=== PATIENT | female | born 1985 | race Caucasian/White ===

== ENCOUNTER 2020-09-05 20:51 | Emergency (ER) | payer OTHER, SELFPAY ==
[2020-09-05 21:08] VITALS: BP 113/68; PULSE 96; RESP 20; TEMP 37; O2SAT 98; BMI 21.9
--- NOTE | 2020-09-05 21:46 | MHC.RECOVSUP ---
Recovery Support o Current location: [address] Identified substance use concern: OPIOID - Overdose <del>-</del> <del>Withdrawal</del> <del>-</del> <del>Seeking</del> <del>ATS</del> <del>(detox)</del> - Support ? Intervention: <del>o</del> <del>ATS</del> <del>bed</del> <del>search</del> <del>started/completed/in</del> <del>process</del> <del>o</del> <del>MAT</del> <del>started</del> <del>or</del> <del>to</del> <del>be</del> <del>started</del> <del>o</del> <del>Community</del> <del>resources</del> <del>provided</del> <del>o</del> <del>Harm</del> <del>reduction</del> <del>discussion</del> ? Plan: <del>o</del> <del>Referral</del> <del>to</del> <del>[facility]</del> <del>o</del> <del>Bed</del> <del>search</del> <del>in</del> <del>progress</del> <del>to</del> <del>o</del> <del>Follow</del> <del>up</del> <del>tomorrow</del> <del>o</del> <del>Patient</del> <del>awaiting</del> <del>crisis</del> <del>evaluation</del> <del>o</del> <del>Patient</del> <del>to</del> <del>follow</del> <del>up</del> <del>with</del> <del>[facility]</del> <del>after</del> <del>discharge</del> ? Additional information: I have not been able to engage with pt. The both times that I tried talking with pt, she was asleep. I was able to leave at her bedside some recovery support information as well as [facility] and [facility]
--- NOTE | 2020-09-05 22:33 | PC.NURSE ---
at bedside for primary eval.
--- NOTE | 2020-09-05 23:16 | ED.GENADULT ---
HPI - General Adult General Chief complaint: ETOH/Substance Use Stated complaint: od Time Seen by Provider: 09/05/20 23:01 Source: patient Mode of arrival: EMS History of Present Illness HPI narrative: This is a 35-year-old female who has 14 months of sobriety and is brought in by EMS stating that her kids when off to camping trip with her father and she became anxious and was scared that they were going to be coming back and was dealing with a recent diagnosis of borderline personality disorder by her therapist and states that she was having some difficulty coping with the diagnosis. Patient states that she sniffed 2 bags of heroin for the 1st time and immediately thereafter felt remorse for having done so and called her friend who called EMS. Patient was found to be unresponsive with agonal respirations and received 2 mg of nasal Narcan with good effect. Patient adamantly denies any suicidal ideation. Patient states that she has plans to call her sponsor as well as her therapist 1st thing in the morning. Related Data Allergies Allergy/AdvReac Type Severity Reaction Status Date / Time bupropion [From WELLBUTRIN] AdvReac Severe SI, Unverified 09/05/20 21:16 urinary incontinence, severe agitation Review of Systems Review of Systems: Pertinent positives and negatives as stated in HPI 10 point review of systems is otherwise negative. PMFSH Past Medical History Source: nursing notes reviewed Medical History Substance abuse Social History Social History Advance Directives: No Advance Directives Information Provided: No Patient : No Physical Exam Vital Signs: Vital Signs: Last Vital Signs Temp 98.6 F 09/05/20 21:08 Pulse 96 09/05/20 21:08 Resp 20 09/05/20 21:08 BP 113/68 09/05/20 21:08 Pulse Ox 98 09/05/20 21:08 Body Mass Index 21.9 VITAL SIGNS: Reviewed. GENERAL: Well developed, well nourished, in no acute distress. HEAD: Normocephalic/atraumatic EYES: PERRLA, EOMI intact without pain EARS: Ext canals without abnormality OROPHARYNX: no oral lesions noted, posterior pharynx clear LUNGS: Normal breath sounds. No adventitious sounds or accessory muscle use. SpO2<98> CARDIOVASCULAR: Regular rate and rhythm without noted murmurs ABDOMEN: Soft, non-tender, non-distended with bowel sounds. LEFT ANKLE: NO SWELLING OR ECCHYMOSIS NOTED AND FULL RANGE OF MOTION PRESENT. SKIN: Inspection of the skin reveals no rashes NEUROLOGIC: Alert and oriented x 4. Strength and sensation to light touch were grossly intact x 4. Course Course Course Narrative: This is a 35-year-old female with history and clinical presentation consistent with heroin overdose that required the use of Narcan. Patient is not suicidal and expresses a planned follow-up with her sponsor as well as her therapist and will be discharged with home Narcan. She was encouraged to return at any time should she require further assistance. Otherwise, patient was discharged home in stable condition. Discharge Plan Discharge Clinical Impression: Accidental overdose Patient Disposition: Home, Self-Care Instructions: Adult Overdose (ED), Naloxone (Into the nose) Additional Instructions: Return to the emergency room should you have any acute worsening of symptoms. Referrals: Chandler Viera DO, MD [Primary Care Provider] - 2 days
[2020-09-05] MEDS: Naloxone HCl Nasal TAKE HOME 4 MG SPRAY NOSTRILALT (23:25)
[2020-09-05 23:27] VITALS: BP 98/74; PULSE 67; RESP 16; O2SAT 95
== END 2020-09-05 23:29 | disposition home or self-care (01) ==
PROVIDERS: Emergency Provider Student in an Organized Health Care Education/Training Program; PCP Internal Medicine
DX: T40.1X1A Poisoning by heroin, accidental (unintentional), initial encounter (principal); R40.4 Transient alteration of awareness; F19.10 Other psychoactive substance abuse, uncomplicated; Y92.039 Unspecified place in apartment as the place of occurrence of the external cause; F41.9 Anxiety disorder, unspecified; F60.3 Borderline personality disorder; Z63.32 Other absence of family member
CPT/HCPCS: 99284

== ENCOUNTER 2020-12-12 08:56 | Emergency (ER) | payer OTHER, SELFPAY ==
--- NOTE | ~2020-12-12 | CT_ITS ---
EXAMINATION: CT ABDOMEN AND PELVIS WITH CONTRAST CLINICAL INFORMATION: Right upper quadrant pain. Pelvic pain. COMPARISON: None TECHNIQUE: Multidetector volumetric images were obtained from the superior aspect of the liver through the pubic symphysis following administration 85 mL of Omnipaque 350 intravenous contrast. Sagittal and coronal reformatted images were obtained on the technologist's workstation. Oral contrast: No This CT examination was performed using dose optimization techniques as appropriate, variously including the following: *Automated exposure control *Adjustment of mA and/or kV according to patient size (this includes techniques or standardized protocols for targeted exams where dose is matched to indication/reason for exam; i.e. extremities or head) *Use of iterative reconstruction technique DLP: 322 mGy-cm FINDINGS: LUNG BASES: The visualized lung bases are unremarkable. LIVER, GALLBLADDER, AND BILIARY TREE: The liver is normal in size, shape, and attenuation. No focal hepatic lesion or biliary ductal dilatation is present. The gallbladder is unremarkable with no evidence of radiopaque gallstones, gallbladder wall thickening, or obvious pericholecystic inflammatory changes. PANCREAS: Unremarkable. SPLEEN: Unremarkable. ADRENAL GLANDS: Unremarkable. KIDNEYS AND URETERS: The kidneys are normal in size, shape, and attenuation. No hydronephrosis, hydroureter, or calculi seen. No perinephric stranding. BLADDER: Unremarkable. GASTROINTESTINAL TRACT: The stomach is unremarkable. Normal caliber small bowel. There is no obstruction. No colonic wall thickening or inflammatory change. The appendix is not well seen. There is a linear area of adjacent calcifications near the cecum which could represent multiple appendicoliths in the appendix. ABDOMINAL WALL: No significant hernia is appreciated. LYMPH NODES: Normal. VASCULAR: Normal caliber aorta. Circumaortic left renal vein. PELVIC VISCERA: The uterus and adnexa are unremarkable. Contraceptive ring noted. OSSEOUS STRUCTURES: No acute or suspicious osseous abnormality. CT/CT abdomen pelvis w con IMPRESSION: No acute findings in the abdomen or pelvis. No inflammatory changes. Normal appearance of the gallbladder. No pelvic mass.
[2020-12-12 09:15] VITALS: BP 115/76; PULSE 77; RESP 18; TEMP 37.2; O2SAT 99; BMI 22.8
[2020-12-12 09:42] LABS: Appearance Urine HAZY; Color Urine YELLOW; Glucose Urine UA NEG (NEG); Leukocyte Esterase Urine TRACE (NEG); Nitrite Urine NEG (NEG); UACC Culture Trigger YES; Urine Blood NEG (NEG); Urine Ketones NEG (NEG); Urine Protein NEG (NEG-TRACE)
[2020-12-12 09:45] LABS: UPreg QC Valid YES; Urine Pregnancy NEGATIVE (NEGATIVE)
[2020-12-12 10:06] LABS: Bacteria Urine 1+ /LPF; RBC Urine 0 /HPF (0); Renal Epithelial Cells Urine 1+ /LPF; Squamous Epithelial Cell Urine 2+ /LPF
[2020-12-12 10:17] LABS: COVID-19 Test Negative (Negative); IDNOW Serial# 9DD0AD1C
--- NOTE | 2020-12-12 10:25 | ED_ITS ---
HPI - General Adult General Chief complaint: Weakness Stated complaint: body ache, weakness, sob, abd pain Time Seen by Provider: 12/12/20 10:10 Source: patient Mode of arrival: ambulatory Limitations: no limitations History of Present Illness HPI narrative: 35-year-old female who presents emergency department for e valuation of nausea, vomiting and abdominal pain. The patient states that she had a positive test on 11/21/2020. She then developed vaginal bleeding for 4 days. She states the bleeding was worse than her usual the menstrual flow. The bleeding then stopped and she had a repeat test which was negative , therefore she restarted her control pills. The patient states that she did follow-up with her PCP in was diagnosed with bacterial vaginosis. She was started on metronidazole 750 mg twice a day. She states since starting this medication she has had frequent nausea and vomiting. She has also had abdominal and pelvic pain. She points to her right upper quadrant and epigastric area and in her pelvic asked to localize the pain. She states the pain constant, cramping, sharp pain which is 10 out of its worst. She did take some open with no relief for pain. She states that she still has a significant vaginal discharge despite taking the metronidazole. She states that she had a low-grade fever at home. She denied chest pain, shortness of breath, dyspnea on exertion, change in bowel movements. She has noted dysuria with urinary frequency. Past surgical history: Appendectomy. Related Data Previous Rx's Medication Instructions Recorded clindamycin HCl 300 mg capsule 300 mg PO BID 7 Days #14 cap 12/12/20 doxycycline hyclate 100 mg tablet 100 mg PO Q12H 10 Days #20 tab 12/12/20 ondansetron 4 mg disintegrating 4 mg PO Q6-8H PRN #14 tab 12/12/20 tablet Allergies Allergy/AdvReac Type Severity Reaction Status Date / Time bupropion [From WELLBUTRIN] AdvReac Severe SI, Unverified 09/05/20 21:16 urinary incontinence, severe agitation Review of Systems Review of Systems: Yes all other systems are reviewed and are negative [facility] Past Medical History [facility] Narrative: Social history: Patient states she stop smoking cigarettes in April of 2020. She also states that she stopped vaping tobacco products 2 weeks prior. She has a history of alcohol abuse and states that her last drink was 09/06/2020. The patient has a history of opiate use disorder and states that she last used intranasal heroin 3 months prior. Medical History Anxiety Asthma Depression Kidney stone Substance abuse Social History Social History Advance Directives: No Physical Exam Vital Signs: Vital Signs: Last Vital Signs Temp 99 F 12/12/20 09:15 Pulse 77 12/12/20 09:15 Resp 18 12/12/20 09:15 BP 115/76 12/12/20 09:15 Pulse Ox 99 12/12/20 09:15 Body Mass Index 22.8 Const: Other: Pleasant and cooperative female patient, she is crying, she appears to be in distress secondary to her pain, she also appears to be anxious, she is able to answer all questions appropriately HENMT: Head: Yes normal to inspection, Yes normocephalic and Yes atraumatic Ears: external ears normal General nose exam: Normal external nose present Face and sinus: Yes normal facial exam Mouth: Normal oral and palatal mucosa present Throat: Yes posterior oropharynx normal Eyes: General: appearance normal, both eyes and all related structures Pupils: Equal, round and reactive pupils present Neck: Neck: Yes normal visual inspection, Yes no lymphadenopathy, Yes trachea midline and Yes supple Chest: Chest palpation & inspection: normal inspection of the chest and normal palpation of entire chest wall Resp: Effort & Inspection: normal respiratory effort and able to speak in complete sentences Auscultation: clear to auscultation bilaterally Cardio: Rate: regular rate Rhythm: regular rhythm Heart sounds: S1 normal heart sound present, S2 normal heart sound present and no murmurs GI: Inspection: Yes normal to inspection Palpation (GI): Soft to palpation, Tenderness to palpation present (GI) in the epigastrum (Moderate), in the RUQ (Moderate), periumbilically (Moderate) and suprapubicly ([id number]) and no guarding Auscultation: normal bowel sounds : General: Yes no CVA tenderness External Female Exam: normal external appearance Speculum Exam - Vagina: normal palpation, abnormal vaginal discharge (Thin, white) and foreign body (NuvaRing palpable) Speculum Exam - Cervix: Cervical os closed, Abnormal cervical discharge present (Thin white) and Cervical tenderness present (Moderate to severe) Bimanual exam- vagina & uterus: normal palpation, Cervical tenderness present (Moderate to severe), cervical motion tenderness (Moderate) and Uterine tenderness ([id number]) Bimanual Exam- Adnexa, other: tender ([id number]) OB/external & speculum: foreign body (NuvaRing palpable) Back/Spine/Pelvis: Back: no CVA tenderness Skin: General skin exam: no rashes or lesions noted Neuro: Cranial nerves: Yes CN's II-XII intact bilaterally and Yes Equal, round and reactive pupils present Cognition (Neuro): normal cognition Motor exam (neuro): 5/5 motor strength present throughout Extrem: General: Yes normal to inspection Psych: Appearance: grossly normal Speech and movement: Normal speech and movement present Affect: Anxious affect present Attitude: cooperative Thought process: Normal thought process present Thought content: Normal thought content present Course Course Course Narrative: 35-year-old female who presents emergency department for diane luation of nausea, vomiting and abdominal pain. The patient has been taking metronidazole twice a day for bacterial vaginosis. The patient's vital signs were normal. Patient's examination did reveal but the patient was anxious tearful and in distress secondary to her pain. She did have right upper quadrant and epigastric tenderness as well as umbilical and suprapubic tenderness. The differential includes was not limited to adverse reaction to metronidazole, biliary disease, pancreatitis, kidney stone, pelvic inflammatory disease. I ordered a CBC, CMP, lipase, lactate, urinalysis and urine test. Patient was ordered to get Toradol 30 mg IV for pain and Zofran 4 mg IV for her nausea and vomiting. She was also treated with normal saline x1 L. CT scan of the patient's abdomen pelvis with IV contrast will also be obtained. 1034: Patient's urinalysis revealed trace leukocyte esterase, microscopic revealed 1-4 white blood cells, 2+ squamous cells, 1+ bacteria. Her urine test were negative. 1240: The patient's pelvic exam did reveal significant cervical motion tenderness with only minimal tenderness palpation over her uterus and fallopian tubes she does have a NuvaRing in place. The patient did have both a vaginal and cervical discharge which was thin and white without significant odor. At this time I suspect that the patient's nausea and vomiting was probably related to the metronidazole however her abdominal pain is most likely caused by pelvic inflammatory disease versus cervicitis. The patient was treated with ceftriaxone 500 mg IM. She will be started on doxycycline 100 mg twice a day for 10 days and I will also treat her bacterial vaginosis with clindamycin cream. Patient only completed a 3 day course of metronidazole. The patient was tested for gonorrhea and chlamydia. Patient was given printed and verbal instructions and discharged home. Medical Decision Making Lab Data Result diagrams: 12/12/20 10:44 12/12/20 10:44 Labs: Lab Results 12/12/20 12/12/20 12/12/20 Range/Units 09:26 09:27 09:27 WBC (4.8-10.8) X10*3/uL RBC (4.20-5.50) X10*6/uL Hgb (12.0-16.0) g/dl Hct (37.0-47.0) % MCV (80.0-98.0) fL MCH (27.0-33.0) pg MCHC (31.0-35.0) g/dl RDW (11.0-16.0) % Plt Count (160-400) X10*3/uL MPV (9.4-12.3) fL Immature Gran % (Auto) (0.0-0.4) % Neut % (Auto) (45-73) % Lymph % (Auto) (20-40) % [place] % (Auto) (2-11) % Eos % (Auto) (0-4) % Baso % (Auto) (0-2) % Lymph # (Auto) (1.2-4.9) X10*3/uL [place] # (Auto) (0.1-1.2) X10*3/uL Eos # (Auto) (0.0-0.4) X10*3/uL Baso # (Auto) (0.0-0.2) X10*3/uL Abs Immat Gran (auto) (0.00-0.03) X10*3/uL Absolute Neuts (auto) (2.0-8.3) x10*3/uL Absolute Nucleated RBC (0.0-0.012) X10*3/uL Nucleated RBC % (auto) (0.0-0.2) /100WBC Sodium (135-145) mmol/L Potassium (3.3-5.1) mmol/L Chloride (96-108) mmol/L Carbon Dioxide (22-29) mmol/L Anion Gap (12-20) BUN (9-16) mg/dL Creatinine (0.5-1.4) mg/dL Estim Creat Clear Calc Estimated GFR Random Glucose (60-115) mg/dL Lactic Acid (0.5-2.0) mmol/L Calcium (8.4-10.2) mg/dL Total Bilirubin (0.0-1.0) mg/dL AST (5-31) U/L ALT (0-31) U/L Alkaline Phosphatase (39-117) U/L Total Protein (6.5-8.0) g/dL Albumin (3.5-5.0) g/dL Lipase (8-78) U/L Urine Color YELLOW Urine Appearance HAZY Urine pH 6.0 (5.0-8.0) Ur Specific [place] 1.020 (1.005-1.025) Urine Protein NEG (NEG-TRACE) MG/DL Urine Glucose (UA) NEG (NEG) MG/DL Urine Ketones NEG (NEG) MG/DL Urine Blood NEG (NEG) Urine Nitrite NEG (NEG) Ur Leukocyte Esterase TRACE H (NEG) Urine RBC 0 (0) /HPF Urine WBC 1-4 (0-4) /HPF Ur Squamous Epith Cells 2+ /LPF Ur Renal Epithelial Cell 1+ /LPF Urine Bacteria 1+ /LPF Urine Test NEGATIVE (NEGATIVE) COVID-19 ([facility]) Negative (Negative) COVID-19 Clin Com See Note 12/12/20 12/12/20 12/12/20 Range/Units 10:44 10:44 10:44 WBC 4.1 L (4.8-10.8) X10*3/uL RBC 3.90 L (4.20-5.50) X10*6/uL Hgb 12.5 (12.0-16.0) g/dl Hct 36.0 L (37.0-47.0) % MCV 92.3 (80.0-98.0) fL MCH 32.1 (27.0-33.0) pg MCHC 34.7 (31.0-35.0) g/dl RDW 11.8 (11.0-16.0) % Plt Count 257 (160-400) X10*3/uL MPV 8.5 L (9.4-12.3) fL Immature Gran % (Auto) 0.2 (0.0-0.4) % Neut % (Auto) 58.9 (45-73) % Lymph % (Auto) 32.3 (20-40) % [place] % (Auto) 6.4 (2-11) % Eos % (Auto) 1.0 (0-4) % Baso % (Auto) 1.2 (0-2) % Lymph # (Auto) 1.3 (1.2-4.9) X10*3/uL [place] # (Auto) 0.3 (0.1-1.2) X10*3/uL Eos # (Auto) 0.0 (0.0-0.4) X10*3/uL Baso # (Auto) 0.1 (0.0-0.2) X10*3/uL Abs Immat Gran (auto) 0.01 (0.00-0.03) X10*3/uL Absolute Neuts (auto) 2.38 (2.0-8.3) x10*3/uL Absolute Nucleated RBC 0.000 (0.0-0.012) X10*3/uL Nucleated RBC % (auto) 0.0 (0.0-0.2) /100WBC Sodium 140 (135-145) mmol/L Potassium 4.0 (3.3-5.1) mmol/L Chloride 108 (96-108) mmol/L Carbon Dioxide 24 (22-29) mmol/L Anion Gap 12 (12-20) BUN 9 (9-16) mg/dL Creatinine 0.80 (0.5-1.4) mg/dL Estim Creat Clear Calc 78.3 Estimated GFR > 60 Random Glucose 85 (60-115) mg/dL Lactic Acid 0.9 (0.5-2.0) mmol/L Calcium 9.1 (8.4-10.2) mg/dL Total Bilirubin 0.6 (0.0-1.0) mg/dL AST 27 (5-31) U/L ALT 38 H (0-31) U/L Alkaline Phosphatase 42 (39-117) U/L Total Protein 6.7 (6.5-8.0) g/dL Albumin 4.4 (3.5-5.0) g/dL Lipase 19 (8-78) U/L Urine Color Urine Appearance Urine pH (5.0-8.0) Ur Specific [place] (1.005-1.025) Urine Protein (NEG-TRACE) MG/DL Urine Glucose (UA) (NEG) MG/DL Urine Ketones (NEG) MG/DL Urine Blood (NEG) Urine Nitrite (NEG) Ur Leukocyte Esterase (NEG) Urine RBC (0) /HPF Urine WBC (0-4) /HPF Ur Squamous Epith Cells /LPF Ur Renal Epithelial Cell /LPF Urine Bacteria /LPF Urine Test (NEGATIVE) COVID-19 ([facility]) (Negative) COVID-19 Clin Com Discharge Plan Discharge Clinical Impression: Acute pelvic inflammatory disease, Bacterial vaginosis Nausea & vomiting Qualifiers: Vomiting type: unspecified Vomiting Intractability: non-intractable Qualified Code(s): R11.2 - Nausea with vomiting, unspecified Patient Disposition: Home, Self-Care Instructions: Bacterial Vaginosis (ED) Additional Instructions: Stop taking Flagyl (metronidazole), I believe that this medication is causing your abdominal pain,nausea and vomiting Your presentation and physical findings are consistent with pelvic inflammatory disease (PID) versus cervicitis (inflammation of the cervix) Approximately 30% of the time, pelvic inflammatory disease is caused by sexually transmitted diseases such as Trichomonas, gonorrhea or chlamydia. Approximately 70% of the time, pelvic inflammatory disease is caused by abnormal bacteria (anaerobic bacteria) in your vagina that can cause an infection You received ceftriaxone 500 mg intramuscularly here in the emergency department Take doxycycline 100 mg, 1 pill twice a day for 10 days. These antibiotics treat sexually transmitted diseases such as gonorrhea, chlamydia and Trichomonas as well as anaerobic bacteria that can cause pelvic inflammatory disease. Take ibuprofen 200 mg pills, 3 pills every 6 hours as needed for pain. Take Tylenol (acetaminophen) 500 mg pills, 2 pills every 4 to 6 hours as needed for pain. For bacterial vaginosis I am treating you with clindamycin 300 mg pills, 312 hours for 7 days. Take Zofran ODT 4 mg pills, 1 pill dissolved in your mouth every 8 hours as needed for nausea and vomiting. Follow-up with your gynecology in 7-10 days. If your business practices officer cannot see you, you can also [facility] with [facility] or with [facility] The doctor that follows up will need to review the following results with you: Gonorrhea and chlamydia (cervical swab and urine testing) Please return to the emergency department if your symptoms get worse or if you develop any symptoms that are concerning to you. Prescriptions: New clindamycin HCl 300 mg capsule 300 mg PO BID 7 Days Qty: 14 RF: 0 doxycycline hyclate 100 mg tablet 100 mg PO Q12H 10 Days Qty: 20 RF: 0 ondansetron 4 mg tablet,disintegrating 4 mg PO Q6-8H PRN (Reason: nausea and vomiting) Qty: 14 RF: 0 Stand Alone Forms: Work/School Release Interventions: ED Discharge Assessment Last Done: 12/12/20 13:01 Discharge Date/Time: 12/12/20 13:02
[2020-12-12] MEDS: 0.9 % Sodium Chloride 1,000 ML 999 ML IV (10:51)
[2020-12-12] MEDS: Ketorolac Tromethamine 15 MG/ML VIAL 30 MG IVPUSH (10:52)
[2020-12-12] MEDS: ondansetron HCL 4 MG/2 ML VIAL IVPUSH (10:52)
[2020-12-12 10:53] LABS: MANUAL DIFF FLAG NO
[2020-12-12 10:55] LABS: Basophils Absolute Auto 0.1 X10*3/uL (0.0-0.2); Basophils Percent Auto 1.2 % (0-2); Hemoglobin 12.5 g/dl (12.0-16.0); Imm Gran Abs Auto 0.01 X10*3/uL (0.00-0.03); Imm Gran Pct Auto 0.2 % (0.0-0.4); Lymphocytes Absolute Auto 1.3 X10*3/uL (1.2-4.9); Lymphocytes Percent Auto 32.3 % (20-40); Mean Corpuscular HGB Conc 34.7 g/dl (31.0-35.0); Mean Corpuscular Hemoglobin 32.1 pg (27.0-33.0); Mean Corpuscular Volume 92.3 fL (80.0-98.0); Mean Platelet Volume 8.5 fL (9.4-12.3); Monocytes Absolute Auto 0.3 X10*3/uL (0.1-1.2); Monocytes Percent Auto 6.4 % (2-11); Neutrophils Absolute Auto 2.38 x10*3/uL (2.0-8.3); Neutrophils Percent Auto 58.9 % (45-73); Platelet Count 257 X10*3/uL (160-400); Red Cell Distribution Width 11.8 % (11.0-16.0); White Blood Count 4.1 X10*3/uL (4.8-10.8)
[2020-12-12 11:05] LABS: Lactic Acid 0.9 mmol/L (0.5-2.0)
[2020-12-12 11:10] LABS: Alanine Aminotransferase 38 U/L (0-31); Albumin Level 4.4 g/dL (3.5-5.0); Alkaline Phosphatase 42 U/L (39-117); Anion Gap 12 (12-20); Aspartate Amino Transferase 27 U/L (5-31); Bilirubin Total 0.6 mg/dL (0.0-1.0); Blood Urea Nitrogen 9 mg/dL (9-16); Calcium 9.1 mg/dL (8.4-10.2); Carbon Dioxide 24 mmol/L (22-29); Chloride 108 mmol/L (96-108); Creatinine Clr Calc Pharmacy 78.3; Estimated Glomerular Filt Rate > 60; Glucose Random 85 mg/dL (60-115); Lipase 19 U/L (8-78); Sodium 140 mmol/L (135-145); Total Protein 6.7 g/dL (6.5-8.0)
[2020-12-12] MEDS: iohexoL 350 MG/ML 100 ML INFUS..BTL IV (11:42)
--- NOTE | 2020-12-12 11:45 | PC.NURSE ---
nad, pain improved to 4/10, no nausea, nad, ct complete
[2020-12-12] MEDS: cefTRIAXone sodium 500 MG, Lidocaine HCl 1 % MPF 1 ML IM (12:57)
[2020-12-12 14:06] LABS: CT PCR NOT DETECTED (Not Detect.); NG PCR NOT DETECTED (Not Detect.)
== END 2020-12-12 13:02 | disposition home or self-care (01) ==
PROVIDERS: Emergency Provider Emergency Medicine Emergency Medical Services; PCP Internal Medicine
DX: N73.0 Acute parametritis and pelvic cellulitis (principal); N76.0 Acute vaginitis; B96.89 Other specified bacterial agents as the cause of diseases classified elsewhere; R11.2 Nausea with vomiting, unspecified; Z20.822 Contact with and (suspected) exposure to COVID-19
CPT/HCPCS: 36415; 74177; 80053; 81001; 81025; 83605; 83690; 85025; 87086; 87491; 87591; 87635; 96361; 96374; 96375; 99283; 99284; J0696; J1885; J2405; Q9967

== ENCOUNTER 2020-12-13 22:57 | Emergency (ER) | payer OTHER, SELFPAY ==
[2020-12-13 23:01] VITALS: BP 121/82; PULSE 83; RESP 20; TEMP 36.9; O2SAT 98; BMI 22.8
--- NOTE | 2020-12-13 23:30 | ED_ITS ---
HPI - Female Genitourinary General Chief complaint: Urogenital-Female Stated complaint: vaginal pain Time Seen by Provider: 12/13/20 23:21 Source: patient Mode of arrival: ambulatory Limitations: no limitations History of Present Illness HPI Narrative: Patient history of anxiety/depression with recurrent urinary complaints and pelvic pain followed by psychiatrist plan to see urologist for possible interstitial cystitis was seen here yesterday for same for 1 week of vaginal pain and spasm treated for vaginosis, GC and chlamydia were negative comes back for similar pain antibiotic not helping her. Also feels pain when she urinates has vaginal discharge which is clear feel lot of spasm and vagina and lower pelvic area also has abdominal cramping. Patient also has increased anxiety lately and does not have lorazepam Related Data Previous Rx's Medication Instructions Recorded clindamycin HCl 300 mg capsule 300 mg PO BID 7 Days #14 cap 12/12/20 doxycycline hyclate 100 mg tablet 100 mg PO Q12H 10 Days #20 tab 12/12/20 ondansetron 4 mg disintegrating 4 mg PO Q6-8H PRN #14 tab 12/12/20 tablet dicyclomine 20 mg tablet 20 mg PO QID PRN #20 tab 12/14/20 phenazopyridine 200 mg tablet 200 mg PO TID PRN 2 Days #5 tab 12/14/20 (Pyridium) Allergies Allergy/AdvReac Type Severity Reaction Status Date / Time bupropion [From WELLBUTRIN] AdvReac Severe SI, Unverified 09/05/20 21:16 urinary incontinence, severe agitation Review of Systems Review of Systems: Yes all other systems are reviewed and are negative PMFSH Past Medical History Medical History Anxiety Asthma Depression Kidney stone Substance abuse Social History Social History Advance Directives: No Advance Directives Information Provided: No Physical Exam Vital Signs: Vital Signs: Last Vital Signs Temp 98.4 F 12/13/20 23:01 Pulse 83 12/13/20 23:01 Resp 20 12/13/20 23:01 BP 121/82 12/13/20 23:01 Pulse Ox 98 12/13/20 23:01 Body Mass Index 22.8 Appearance: Alert. Oriented X3. No acute distress. Anxious Eyes: No pallor icterus ENT: Pharynx normal. Oral Mucosa moist Neck: Normal inspection. Neck supple. CVS: Normal heart rate and rhythm. Pulses normal. Respiratory: No respiratory distress. Equal air entry bilateral, no wheezing/rales/rhonchi Abdomen: Soft mild suprapubic tenderness no focal tenderness Bowel sounds are present, no mass palpable, no CVA tenderness Skin: Skin warm and dry. Normal skin color. Normal skin turgor. Extremities: No lower extremity edema. Neuro: Oriented X 3. MDM - Female Genitourinary MDM Narrative Medical decision making narrative: Patient with chronic UTI symptoms with cultures negative multiple examinations negative symptoms likely from this interstitial cystitis/IBS with anxiety. Will recheck the urine give her a dose Bentyl and Pyridium patient ran out of her Ativan 1 week but per records patient received 60 tablets on 12/05 Lab Data Attestation: I reviewed the patient's lab results. Labs: Lab Results 12/13/20 Range/Units 23:46 Urine Color YELLOW Urine Appearance CLEAR Urine pH 6.0 (5.0-8.0) Ur Specific [place] 1.015 (1.005-1.025) Urine Protein NEG (NEG-TRACE) MG/DL Urine Glucose (UA) NEG (NEG) MG/DL Urine Ketones 15 (NEG) MG/DL Urine Blood NEG (NEG) Urine Nitrite NEG (NEG) Ur Leukocyte Esterase 1+ H (NEG) Urine RBC 1-4 (0) /HPF Urine WBC 1-4 (0-4) /HPF Ur Squamous Epith Cells 2+ /LPF Urine Bacteria 2+ /LPF Discharge Plan Discharge Clinical Impression: Bladder spasm, Anxiety Patient Disposition: Home, Self-Care Instructions: Anxiety (ED), Pelvic Pain (ED) Additional Instructions: Your symptoms likely from interstitial cystitis/IBS/anxiety Follow-up with urologist as planned Take medications as prescribed and follow with psychiatrist Prescriptions: New dicyclomine 20 mg tablet 20 mg PO QID PRN (Reason: abdominal pain) Qty: 20 RF: 0 phenazopyridine [Pyridium] 200 mg tablet 200 mg PO TID PRN (Reason: pain) 2 Days Qty: 5 RF: 0 No Action clindamycin HCl 300 mg capsule 300 mg PO BID 7 Days Qty: 14 RF: 0 doxycycline hyclate 100 mg tablet 100 mg PO Q12H 10 Days Qty: 20 RF: 0 ondansetron 4 mg tablet,disintegrating 4 mg PO Q6-8H PRN (Reason: nausea and vomiting) Qty: 14 RF: 0
[2020-12-13] MEDS: Dicyclomine HCl 10 MG CAPSULE 20 MG PO (23:43)
[2020-12-13] MEDS: Phenazopyridine HCL 200 MG TABLET PO (23:43)
[2020-12-13 23:53] LABS: Appearance Urine CLEAR; Color Urine YELLOW; Glucose Urine UA NEG (NEG); Leukocyte Esterase Urine 1+ (NEG); Nitrite Urine NEG (NEG); Specific Gravity - Urine 1.015 (1.005-1.025); UACC Culture Trigger YES; Urine Blood NEG (NEG); Urine Ketones 15 MG/DL (NEG); Urine Protein NEG (NEG-TRACE)
[2020-12-14 00:18] LABS: Bacteria Urine 2+ /LPF; Squamous Epithelial Cell Urine 2+ /LPF
[2020-12-14] MEDS: LORazepam 1 MG TABLET PO (00:36)
[2020-12-14] MEDS: Ketorolac Tromethamine 60 MG/2 ML VIAL IM (00:49)
--- NOTE | 2020-12-14 00:49 | PC.NURSE ---
PT CRYING AT BEDSIDE AND REFUSING TO LEAVE THE ED UNTIL SHE GET PAIN RELIEF IN HER VAGINAL AREA. MD AWARE AND ORDERED MORPHINE FOR PAIN. PT IS DRIVING SO MORPHINE WAS WITNESSED WASTED WITH [facility]. PT GIVEN TORADOL IM INSTEAD. PT TOLERATED WELL AND VERBALIZED U/S OF D/C INSTRUCTIONS AND LEFT ED AMBULATORY WITH STEADY EVEN GAIT TO WR.
== END 2020-12-14 01:26 | disposition home or self-care (01) ==
PROVIDERS: Emergency Provider Internal Medicine; PCP Internal Medicine
DX: N32.89 Other specified disorders of bladder (principal); F41.1 Generalized anxiety disorder; F43.0 Acute stress reaction; Z79.899 Other long term (current) drug therapy
CPT/HCPCS: 81001; 81003; 96372; 99283; 99284; J1885

== ENCOUNTER 2021-05-14 06:01 | Emergency (ER) | payer OTHER, SELFPAY ==
[2021-05-14 06:29] VITALS: PULSE 74; RESP 16; TEMP 36.6; O2SAT 98; BMI 21.9
--- NOTE | 2021-05-14 07:45 | ED.URI ---
HPI - URI/Sore Throat General Chief Complaint: Upper Respiratory Symptoms Stated Complaint: Sinus infection Time Seen by Provider: 05/14/21 07:43 Source: patient Mode of arrival: ambulatory Limitations: no limitations History of Present Illness HPI Narrative: 36-year-old female came in for evaluation of upper respiratory symptoms. Came in with maxillary sinus pressure left more than right, left frontal sinus pressure, nasal purulent greenish discharge, sore throat, left ear pain, headache, neck pain, chills but no fever. Patient with history of frequent maxillary sinus infections in the past. No sick contact, no recent travel, no photophobia, mild headache. Related Data Previous Rx's Medication Instructions Recorded clindamycin HCl 300 mg capsule 300 mg PO BID 7 Days #14 cap 12/12/20 doxycycline hyclate 100 mg tablet 100 mg PO Q12H 10 Days #20 tab 12/12/20 ondansetron 4 mg disintegrating 4 mg PO Q6-8H PRN #14 tab 12/12/20 tablet dicyclomine 20 mg tablet 20 mg PO QID PRN #20 tab 12/14/20 phenazopyridine 200 mg tablet 200 mg PO TID PRN 2 Days #5 tab 12/14/20 (Pyridium) amoxicillin 875 mg-potassium 1 tab PO Q12H #10 tab 05/14/21 clavulanate 125 mg tablet Allergies Allergy/AdvReac Type Severity Reaction Status Date / Time bupropion [From WELLBUTRIN] AdvReac Severe SI, Unverified 09/05/20 21:16 urinary incontinence, severe agitation Review of Systems Review of Systems: All other systems are reviewed and are negative Constitutional: Reports as per HPI and Reports no additional constitutional complaints Eyes: Reports as per HPI and Reports no additional eye complaints Reports system reviewed and no additional complaints, except as documented Cardiovascular: Reports as per HPI and Reports no additional cardiovascular complaints Respiratory: Reports as per HPI and Reports no additional respiratory complaints Gastrointestinal: Reports as per HPI and Reports no additional gastrointestinal complaints Genitourinary: Reports no additional female genitourinary complaints Musculoskeletal: Reports no additional musculoskeletal complaints Skin/Breast: Reports system reviewed and no additional complaints, except as docu Psychiatric: Reports no additional psychiatric complaints Endocrine: Reports no additional endocrine complaints Hematologic/Lymphatic: Reports no additional hematologic/lymphatic complaints Allergic/Immunologic: Reports no additional allergic/immunologic complaints Reports system reviewed and no additional complaints, except as documented and Reports Abnormal speech present [facility] Past Medical History Medical History Anxiety Asthma Depression Kidney stone Substance abuse Social History Social History Advance Directives: No Patient : No Physical Exam Vital Signs: Vital Signs: Last Vital Signs Temp 98 F 05/14/21 06:29 Pulse 74 05/14/21 06:29 Resp 16 05/14/21 06:29 Pulse Ox 98 05/14/21 06:29 BMI result Body Mass Index 21.9 Vital signs have been reviewed as appeared to be correct. Blood pressure normal. Heart rate normal. Respiration rate normal. Temperature normal. Oxygen saturation normal. Appearance: Alert. Oriented X3. No acute distress. Head: Normal external exam. Normocephalic. Atraumatic. No Díaz signs noted. No raccoon eyes noted Eyes: PERRLA. EOMI. Conjunctiva and sclera normal. Eyelids normal. ENT: TM's erythema left more than right. Pharyngeal erythema, no exudate. Uvula midline. Moist mucous membranes. No trismus noted. No drooling noted. No muffled voice noted. Tenderness over left/right maxillary sinuses to percussion. Neck: Normal inspection. Neck supple. FROM. No adenopathy. Thyroid Normal. No meningeal signs. No neck mass noted. CVS: Normal heart rate and rhythm. Heart sound normal. No murmurs noted. Pulses normal throughout. Respiratory: No respiratory distress. Painless inspiration. Breath sounds normal. No wheezes/rales/rhonchi noted. Chest nontender. No accessory muscle usage noted or decreased air movement noted. Abdomen: Soft and nontender. Bowel sounds normal in all 4 quadrants. No distention noted. No organomegaly noted. No visible injury noted. Back: No CVA tenderness. Full range of motion noted. Skin: Skin warm and dry. Normal skin color. Normal skin turgor. No rashes/lesions/lacerations noted. Extremities: No lower extremity edema. Extremities exhibit normal range of motion. Extremities nontender. Neuro: Oriented X 3. Cranial nerve exam: II-XII are grossly intact No motor deficit. No sensory deficit. Reflexes normal. Course Course Course Narrative: Assessment and plan. 36-year-old female with history of recurrent sinusitis, patient presented with upper respiratory symptoms, start the patient on Augmentin, will refer the patient to ENT evaluation as an outpatient. Discharge Plan Discharge Clinical Impression: Upper respiratory infection, Sinusitis Patient Disposition: Home, Self-Care Instructions: Sinusitis (ED), Pharyngitis (ED) Prescriptions: New amoxicillin-pot clavulanate 875-125 mg tablet 1 tab PO Q12H Qty: 10 0RF No Action clindamycin HCl 300 mg capsule 300 mg PO BID 7 Days Qty: 14 0RF doxycycline hyclate 100 mg tablet 100 mg PO Q12H 10 Days Qty: 20 0RF ondansetron 4 mg tablet,disintegrating 4 mg PO Q6-8H PRN (Reason: nausea and vomiting) Qty: 14 0RF dicyclomine 20 mg tablet 20 mg PO QID PRN (Reason: abdominal pain) Qty: 20 0RF phenazopyridine [Pyridium] 200 mg tablet 200 mg PO TID PRN (Reason: pain) 2 Days Qty: 5 0RF Referrals: Jj Swenson [Physician] - 2 days Chandler Viera DO, MD [Primary Care Provider] - 2 days
== END 2021-05-14 08:17 | disposition home or self-care (01) ==
PROVIDERS: Emergency Provider Emergency Medicine; PCP Internal Medicine
DX: J32.9 Chronic sinusitis, unspecified (principal); J06.9 Acute upper respiratory infection, unspecified; Z79.899 Other long term (current) drug therapy
CPT/HCPCS: 99283

== ENCOUNTER 2023-10-05 22:12 | Inpatient (IN) | payer OTHER, SELFPAY ==
--- NOTE | 2023-10-05 | ECG_ITS ---
Test Reason : ELEVATED HR Blood Pressure : / mmHG Vent. Rate : 115 BPM Atrial Rate : 115 BPM P-R Int : 116 ms QRS Dur : 078 ms QT Int : 294 ms P-R-T Axes : 041 051 -46 degrees QTc Int : 406 ms Sinus tachycardia T wave abnormality, consider inferior ischemia Abnormal ECG No previous ECGs available Referred By: Generic ED Physician Electronically Signed By:TESHA GUTIERREZ
--- NOTE | ~2023-10-05 | XR_ITS ---
EXAMINATION: XR CHEST CLINICAL INFORMATION: Congestion, reported fever COMPARISON: None available. TECHNIQUE: 2 views of the chest were obtained. FINDINGS: There is no gross pneumothorax. Heart size is normal. No pleural effusion. Retrocardiac heterogeneous opacity concerning for pneumonia. XR/XR chest 2V IMPRESSION: Retrocardiac heterogeneous opacity concerning for pneumonia. Recommend follow-up imaging in 4-6 weeks to confirm resolution and exclude underlying pathology. This study was presented today June 09, 2023 for interpretation. Stat results provided at this time as requested by referring provider. Electronically signed by: Jennifer Wong MD 10/09/2023 07:17 AM EDT
[2023-10-05 22:15] VITALS: BP 130/94; PULSE 119; RESP 16; TEMP 36.6; O2SAT 98; BMI 24.1
[2023-10-05 22:52] LABS: MANUAL DIFF FLAG NO
[2023-10-05 22:53] LABS: Basophils Absolute Auto 0.1 X10*3/uL (0.0-0.2); Eosinophils Absolute Auto 0.1 X10*3/uL (0.0-0.4); Eosinophils Percent Auto 2.1 % (0-4); Hematocrit 34.8 % (37.0-47.0); Hemoglobin 12.3 g/dl (12.0-16.0); Lymphocytes Absolute Auto 1.5 X10*3/uL (1.2-4.9); Lymphocytes Percent Auto 30.9 % (20-40); Mean Corpuscular HGB Conc 35.3 g/dl (31.0-35.0); Mean Corpuscular Hemoglobin 31.8 pg (27.0-33.0); Mean Corpuscular Volume 89.9 fL (80.0-98.0); Mean Platelet Volume 8.2 fL (9.4-12.3); Monocytes Absolute Auto 0.7 X10*3/uL (0.1-1.2); Monocytes Percent Auto 14.2 % (2-11); Neutrophils Absolute Auto 2.5 x10*3/uL (2.0-8.3); Neutrophils Percent Auto 51.8 % (45-73); Platelet Count 205 X10*3/uL (160-400); Red Blood Count 3.87 X10*6/uL (4.20-5.50); White Blood Count 4.9 X10*3/uL (4.8-10.8)
--- NOTE | 2023-10-05 22:57 | MHC.EDTECH ---
Patient brought in from triage,changed into crisis attire,placed patient on the cardiac cath technologist,belongings list completed and mom is taking home ALL belongings mom at bedside at this time.
[2023-10-05 23:06] LABS: Anion Gap 11 (12-20); Blood Urea Nitrogen 14 mg/dL (9-16); Calcium 9.2 mg/dL (8.4-10.2); Carbon Dioxide 25 mmol/L (22-29); Chloride 108 mmol/L (96-108); Creatinine Clr Calc Pharmacy 84.5; Estimated Glomerular Filt Rate > 60; Glucose Random 104 mg/dL (60-115); Potassium 3.6 mmol/L (3.3-5.1); Sodium 140 mmol/L (135-145)
[2023-10-05 23:08] LABS: Acetaminophen LAB < 3 mcg/mL (<30); Salicylate < 5.0 mg/dL (15-30)
--- NOTE | 2023-10-06 00:28 | ED.PSYCH ---
HPI - Psych General Chief Complaint: Behavioral Concerns Stated Complaint: having bad thoughts Time Seen by Provider: 10/05/23 22:44 Source: patient and family Mode of arrival: ambulatory Limitations: other (Very somnolent) History of Present Illness ED Provider: Dr. Tasha Fan HPI Narrative: Patient comes to the emergency room accompanied by her mother. According to the patient and her mother, patient has history of mood disorder and depression. According to the patient's mother, the patient is compliant with the medication and states that she has been doing very well until 2 days ago. Unclear if there is any triggers. According to the patient's mother, the patient was in the house talking to people who were not in the room. According to the patient's mother, the patient has never experienced hallucinations. To the mother's knowledge, the patient does not use alcohol or drugs. Patient is too somnolent to participate in conversation, occasionally wakes up and answers questions Related Data Home Medications ?Medication ?Instructions ?Recorded ?Confirmed diazepam 5 mg tablet 5 mg PO BID 10/05/23 10/05/23 ibuprofen 800 mg tablet 800 mg PO Q8H PRN Pain, Mild 10/05/23 10/05/23 oxcarbazepine 150 mg tablet 150 mg PO TID 10/05/23 10/05/23 Allergies Allergy/AdvReac Type Severity Reaction Status Date / Time bupropion [From WELLBUTRIN] AdvReac Severe SI, Unverified 10/05/23 22:19 urinary incontinence, severe agitation Review of Systems Review of Systems: Yes Other (Too somnolent to participate in conversation) [facility] Past Medical History Medical History Depression Anxiety Asthma Kidney stone Substance abuse Social History Social History Advance Directives: No Advance Directives Information Provided: No Do you have a plan to hurt others: No Plan Physical Exam Vital Signs: Vital Signs: Last Vital Signs Temp 98 F 10/05/23 22:15 Pulse 119 H 10/05/23 22:15 Resp 16 10/05/23 22:15 BP 130/94 H 10/05/23 22:15 Pulse Ox 98 10/05/23 22:15 O2 Del Method Room Air 08/24/24 22:15 BMI result Body Mass Index 24.1 Const: Other: Appearance: Somnolent, easily arousable, falls back asleep Eyes: Pupils equal, round and reactive to light. ENT: Pharynx normal. Neck: Normal inspection. Neck supple. No lymph nodes noted. No crepitus CVS: Normal heart rate and rhythm. Pulses normal. Normal S1 and S2 Respiratory: No respiratory distress. Breath sounds normal. No Wheezing. No rales Abdomen: Soft and nontender. No rigidity. No distention. Skin: Skin warm and dry. Normal skin color. Normal skin turgor. Extremities: No lower extremity edema. No Lacerations. No Rash Neuro: Moving all extremities. No slurred speech. CN 2 through 12 grossly intact Psych: calm, very somnolent Medical Decision Making Medical Decision Making [facility] Narrative: My interpretation of labs: Patient's hematology at baseline, chemistry within normal limits, toxicology negative for salicylates and acetaminophen -urinalysis and hCG pending -care team consult pending -physician observation started at 00:32 Differential Diagnosis Differential Diagnoses: The differential diagnosis associated with the presentation includes (Acute psychosis, Polysubstance abuse, bipolar disorder, schizophrenia) Admission/Observation Consideration of admission/observation: Escalation of care including admission/observation considered (Patient waiting for the care team to evaluate the patient and determine patient's disposition) Lab Data [facility] Lab Attestation statement: I reviewed the patient's lab results. 10/05/23 22:47 10/05/23 22:47 Labs: Lab Results 10/05/23 Range/Units 22:47 WBC 4.9 (4.8-10.8) X10*3/uL RBC 3.87 L (4.20-5.50) X10*6/uL Hgb 12.3 (12.0-16.0) g/dl Hct 34.8 L (37.0-47.0) % MCV 89.9 (80.0-98.0) fL MCH 31.8 (27.0-33.0) pg MCHC 35.3 H (31.0-35.0) g/dl RDW 12.0 (11.0-16.0) % Plt Count 205 (160-400) X10*3/uL MPV 8.2 L (9.4-12.3) fL Immature Gran % (Auto) 0.0 (0.0-0.4) % Neut % (Auto) 51.8 (45-73) % Lymph % (Auto) 30.9 (20-40) % [place] % (Auto) 14.2 H (2-11) % Eos % (Auto) 2.1 (0-4) % Baso % (Auto) 1.0 (0-2) % Lymph # (Auto) 1.5 (1.2-4.9) X10*3/uL [place] # (Auto) 0.7 (0.1-1.2) X10*3/uL Eos # (Auto) 0.1 (0.0-0.4) X10*3/uL Baso # (Auto) 0.1 (0.0-0.2) X10*3/uL Abs Immat Gran (auto) 0.00 (0.00-0.03) X10*3/uL Absolute Neuts (auto) 2.5 (2.0-8.3) x10*3/uL Absolute Nucleated RBC 0.000 (0.0-0.012) X10*3/uL Nucleated RBC % (auto) 0.0 (0.0-0.2) /100WBC Sodium 140 (135-145) mmol/L Potassium 3.6 (3.3-5.1) mmol/L Chloride 108 (96-108) mmol/L Carbon Dioxide 25 (22-29) mmol/L Anion Gap 11 L (12-20) BUN 14 (9-16) mg/dL Creatinine 0.82 (0.5-1.4) mg/dL Estim Creat Clear Calc 84.5 Estimated GFR > 60 Random Glucose 104 (60-115) mg/dL Calcium 9.2 (8.4-10.2) mg/dL Salicylates < 5.0 L (15-30) mg/dL Acetaminophen < 3 (<30) mcg/mL Critical Care Time Critical Care Time Critical Care Time: Yes Total Critical Care Time: 35 Attestation: I have personally provided critical care time. Time includes review of lab data, radiology results, discussion with consultants, and monitoring for potential decompensation. Intervention performed as documented. Discharge Plan Discharge Clinical Impression: Acute psychosis Patient Disposition: Still a Patient Prescriptions: No Action oxcarbazepine 150 mg tablet 150 mg PO TID diazepam 5 mg tablet 5 mg PO BID ibuprofen 800 mg tablet 800 mg PO Q8H PRN (Reason: Pain, Mild) Print Language: Polish
[2023-10-06 00:53] LABS: Troponin-I High Sensitivity < 2.7 ng/L (<3.5-17.0)
[2023-10-06 01:01] LABS: HCG Quantitative < 2 mIU/mL
--- NOTE | 2023-10-06 08:32 | PC.NURSE ---
pt sleeping soundly since this rn arrival at 7am.
--- NOTE | 2023-10-06 10:28 | PC.NURSE ---
continues to sleep. chest rise noted. sitter at bedside.
[2023-10-06 10:43] VITALS: BP 115/77; PULSE 96; RESP 14; TEMP 36.7; O2SAT 94
[2023-10-06 12:41] LABS: Amphetamine Screen Urine Not Detected (Not Detect); Barbiturates, Urine Not Detected (Not Detect); Benzodiazepines Screen Urine POSITIVE (Not Detect); Buprenorphine Scr Not Detected (Not Detect); Cannabinoid Screen Urine Not Detected (Not Detect); Cocaine Screen Urine Not Detected (Not Detect); Fentanyl, urine Not Detected (Not Detect); Methadone Screen, Urine Not Detected (Not Detect); Opiate Screen Urine Not Detected (Not Detect); Oxycodone Screen Urine Not Detected (Not Detect); Phencyclidine Screen Urine Not Detected (Not Detect)
[2023-10-06 12:53] LABS: Appearance Urine Clear; Color Urine Dark Yellow; Glucose Urine UA Negative (Negative); Leukocyte Esterase Urine Negative (Negative); Nitrite Urine Negative (Negative); Specific Gravity - Urine >= 1.030 (1.005-1.025); UMIC TRIGGER UACC YES; Urine Blood Negative (Negative); Urine Ketones 40 mg/dL (Negative); Urine Protein 30 (1+) mg/dL (Neg-Trace)
[2023-10-06 12:54] LABS: UPreg QC Valid YES; Urine Pregnancy NEGATIVE (NEGATIVE)
--- NOTE | 2023-10-06 12:58 | PC.NURSE ---
Pt requesting a sleep aid at this time, DO aware
[2023-10-06 12:59] LABS: Bacteria Urine 1+ (None Seen); Hyaline Casts Urine 0-2 /LPF (0-2); RBC Urine 0-2 /HPF (0-2); Squamous Epithelial Cell Urine 0-2 /HPF (0-2); WBC Urine 0-5 /HPF (0-5)
[2023-10-06] MEDS: LORazepam 1 MG TABLET 2 MG PO (14:25)
[2023-10-06] MEDS: Melatonin 3 MG TABLET 6 MG PO ×2 (14:31→22:28)
[2023-10-06] MEDS: QUEtiapine Fumarate 50 MG TABLET PO (17:44)
--- NOTE | 2023-10-06 19:32 | PC.NURSE ---
patient appears to remain at rest presently respirations are even and unlabored patient appears in no distress.
--- NOTE | 2023-10-06 21:05 | PC.NURSE ---
client had asked some questions and gave abrasive responses once i asked her what i could do ex is this a room? stated she wanted me to go away, and declined medications offereed at this time.
[2023-10-06 21:08] VITALS: BP 130/80; PULSE 113; RESP 16; TEMP 36.3; O2SAT 100
[2023-10-06] MEDS: diazePAM 5 MG TABLET PO (21:15)
[2023-10-06] MEDS: OXcarbazepine 150 MG TABLET PO (21:15)
[2023-10-06] MEDS: Cyclobenzaprine HCl 5 MG TABLET PO (22:28)
--- NOTE | 2023-10-07 | ECG_ITS ---
Test Reason : check QTC Blood Pressure : / mmHG Vent. Rate : 079 BPM Atrial Rate : 079 BPM P-R Int : 132 ms QRS Dur : 086 ms QT Int : 380 ms P-R-T Axes : 047 051 021 degrees QTc Int : 435 ms Normal sinus rhythm T-wave inversion in Inferior leads Abnormal ECG When compared with ECG of 05-OCT-2023 22:33, T wave inversion less evident in Inferior leads Nonspecific T wave abnormality no longer evident in Anterolateral leads QT has lengthened Referred By: Generic ED Physician Electronically Signed By:TESHA GUTIERREZ
[2023-10-07] MEDS: Ibuprofen 800 MG TABLET PO ×2 (03:31→18:43)
[2023-10-07] MEDS: diphenhydrAMINE HCL 25 MG CAPSULE 50 MG PO ×2 (04:14→21:25)
[2023-10-07] MEDS: Melatonin 3 MG TABLET 6 MG PO ×2 (04:14→21:25)
[2023-10-07] MEDS: diazePAM 5 MG TABLET PO ×2 (09:15→13:04)
[2023-10-07] MEDS: OXcarbazepine 150 MG TABLET PO ×2 (09:15→17:22)
[2023-10-07] MEDS: QUEtiapine Fumarate 50 MG TABLET PO ×2 (12:29→21:26)
[2023-10-07 18:10] VITALS: BP 124/76; PULSE 100; RESP 16; TEMP 36.6; O2SAT 98
[2023-10-07 18:15] VITALS: BMI 24.2
--- NOTE | 2023-10-07 18:16 | PC.ADMIT ---
Hannah (Roslyn) she/her pronouns arrived via wheelchair from [facility] ED. This is her first [facility] admission. She is oriented x4, she cooperated with safety and skin check done by this nurse and Elvis Ramirez RN. Both were unremarkable. Roslyn met with Chema Guerrero NP, signed CV and 3 day notice. Roslyn currently declines to sign any releases as she doesnt want the alcohol and drug treatment sectioned highlighted and did not accept that she can choose not to put her initials there. I am sober, not going back to any of that again . Tox screen positive for benzos and she has prescribed diazepam. Per the ER, it was for sciatic nerve pain , but Roslyn says she only takes it for anxiety . Roslyn was brought to ED by mom secondary to increased depression and symptoms of tim occuring over the last week. Per Roslyn, she has been experiencing dark thoughts , but doesnt want to elaborate. She also has near constant internal conversation by Chema . The hallucinations do not tell her to do anything and have not been mean to me , but C always has a comment . She has racing thoughts and thought process is tangential and incongruent at times. of course this is like the worst one night stand ever , I've landed in [place] [facility], great for me! , I dont care if 'Chema' talks to me and over me, but when Chema tries to talk with my kids, then I have issue . She reports that she has been taking her meds as ordered. of course, time is a construct, who knows what time is? I could say a week and it could be an hour or a month . Roslyn was oriented to unit and routine, introduced to roommate and filled out menu. She is on 15 minute safety checks per order.
[2023-10-07] MEDS: hydrOXYzine HCL 25 MG TABLET PO (18:43)
[2023-10-07 20:00] VITALS: BP 138/61; PULSE 94; RESP 18; TEMP 36.4; O2SAT 96
[2023-10-08 08:00] VITALS: BP 130/65; PULSE 77; RESP 16; TEMP 36.9; O2SAT 99
[2023-10-08 08:28] LABS: Cholesterol 210 mg/dL (<200); Estimated Average Glucose 85 mg/dL; HDL Cholesterol 59 mg/dL (>40); Hemoglobin A1c % 4.6 % (<6.0); LDL Cholesterol Calculated 135 mg/dL (<100); Magnesium 2.1 mg/dL (1.6-2.6); Triglycerides 82 mg/dL (<150)
[2023-10-08 08:43] LABS: Free T4 (Free Thyroxine) 0.92 ng/dL (0.71-1.85); Thyroid Stimulating Hormone 2.03 uIU/mL (0.32-4.0)
[2023-10-08 08:57] LABS: Folate 8.4 ng/mL (> or = 4.0); Vitamin B12 1014 pg/mL (200-900)
[2023-10-08] MEDS: OXcarbazepine 150 MG TABLET PO ×3 (09:14→21:19)
[2023-10-08] MEDS: QUEtiapine Fumarate 50 MG TABLET PO ×3 (09:47→21:20)
[2023-10-08] MEDS: guaiFENesin DM 600/30 1 TAB TAB.ER.12H PO (09:47)
[2023-10-08] MEDS: Throat Lozenge, Medicated LOZENGE 1 LOZENGE MUCOUS MEM ×2 (09:47→13:54)
[2023-10-08 10:38] LABS: Influenza A PCR NEGATIVE (Negative); Influenza B PCR NEGATIVE (Negative); Resp Syncy Virus RNA Qual PCR NEGATIVE (Negative); SARS COV2 PCR INHOUSE NEGATIVE (Negative)
[2023-10-08] MEDS: Throat Spray, Medicated 177 ML BOTTLE 1 SPRAY MUCOUS MEM (10:45)
--- NOTE | 2023-10-08 10:59 | P.HPPS_ITS ---
HPI Date of Service: 10/08/23 Chief Complaint: Bipolar Disorder Sources of Information: patient interviewed (brief, pt reports sx of illness- congestion, diarrhea. Psychotic sx present.), chart reviewed and crisis/core team assessment reviewed HPI Subjective Notes: [place] Warning, Conditional Voluntary and 3 Day (10/10/23) Healthcare Proxy: No Guardianship: No Medical Problems Affecting Mental Status: Yes Narrative: 38 yo female, history of Bipolar Disorder, admitted from ER with sx of psychosis, depression, possibly hypomania with increase in sx over the past week. She reports dark thoughts to care team over the past four weeks. Tells team she is monitored by someone she refers to a person C . Denied SI, HI yet tells team she might as well be due to these thoughts. Denies perceptual alterations. Reports sleep and appetite disturbance. On admission, pt signed CV and TDN, stating that her plan was not to be admitted and she needs to leave [facility]. Today, she is in bed for the entire day, reports severe fever for several days prior to admission due to terrible stress. She exhibits paranoia, loosening of associations and response to internal stimuli. She is afebrile, has negative COVID, flu, RSV testing. Chest xray ordered for assessment of congestion. Per mother, presentation was precipitous and pt has had no sleep in 72 hours. Past Psychiatric History: IP: Denies OP: [facility] [place] [phone] medication provider [facility]- Elsie Pollard [phone] PCP: Dr. Viera [phone] Medical Evaluation Reviewed: Yes [facility] Medical History (Updated 10/08/23 @ 18:11 by Mariia Guerrero, HERBOLOGIST) Bipolar disorder with psychotic features Depression Anxiety Asthma Kidney stone Substance abuse Family History: Denies Social History: Raised by both parents, one of three children, estranged from siblings , three children-one adult son, a daughter, age 13 and a son age 9 Graduated high school, attended some college Substance History: Sober since summer 2019 Trauma History: Denies Diagnostics Vital Signs (24Hr): Vital Signs - 24 hr 10/07/23 18:10 10/07/23 20:00 10/08/23 08:00 Temperature 98 F 97.6 F 98.5 F Pulse Rate 100 94 77 Respiratory Rate 16 18 16 Blood Pressure 124/76 138/61 130/65 Pulse Oximetry 98 96 99 Oxygen Delivery Method Room Air Room Air Room Air BMI result Body Mass Index 24.2 Labs 10/05/23 22:47 10/05/23 22:47 Labs: Laboratory Results - last 48 hr 10/06/23 10/08/23 10/08/23 12:19 07:55 09:51 Estimat Average Glucose 85 Hemoglobin A1c % 4.6 Magnesium 2.1 Triglycerides 82 Cholesterol 210 H LDL Cholesterol, Calc 135 H HDL Cholesterol 59 Vitamin B12 1014 H Folate 8.4 TSH 2.03 Free T4 0.92 Urine Color Dark Yellow Urine Appearance Clear Urine pH 6.0 Ur Specific [place] >= 1.030 H Urine Protein 30 (1+) H Urine Glucose (UA) Negative Urine Ketones 40 Urine Blood Negative Urine Nitrite Negative Ur Leukocyte Esterase Negative Urine RBC 0-2 Urine WBC 0-5 Ur Squamous Epith Cells 0-2 Urine Bacteria 1+ Hyaline Casts 0-2 Urine Test NEGATIVE Urine Opiates Screen Not Detected Ur Buprenorphine Scrn Not Detected Ur Oxycodone Screen Not Detected Urine Methadone Screen Not Detected Urine Fentanyl Screen Not Detected Ur Barbiturates Screen Not Detected Ur Phencyclidine Scrn Not Detected Ur Amphetamines Screen Not Detected U Benzodiazepines Scrn POSITIVE H Urine Cocaine Screen Not Detected U Marijuana (THC) Screen Not Detected Influenza Type A (PCR) NEGATIVE Influenza Type B (PCR) NEGATIVE RSV RNA Qual (PCR) NEGATIVE SARS-CoV-2 RNA (RT-PCR) NEGATIVE Meds/Allergies Meds Home Medications ?Medication ?Instructions ?Recorded ?Confirmed ?Type diazepam 5 mg tablet 5 mg PO BID 10/05/23 10/05/23 History ibuprofen 800 mg tablet 800 mg PO Q8H PRN Pain, Mild 10/05/23 10/05/23 History oxcarbazepine 150 mg tablet 150 mg PO TID 10/05/23 10/05/23 History Allergies Allergies Allergy/AdvReac Type Severity Reaction Status Date / Time bupropion [From WELLBUTRIN] AdvReac Severe SI, Verified 10/06/23 14:29 urinary incontinence, severe agitation Mental Status Exam Mental Status Exam Patient Appearance: Fatigued and Disheveled Patient Orientation: Person and Place Level of Consciousness: Drowsy Patient Behavior: Guarded, Suspicious, Resistive to Care, Avoidant, Fatigued, Isolative and Poor Eye Contact Mood Description: Depressed and Apprehensive Affect Description: Flat Patient Cognition Impaired: No Ability to Follow Directions: Fair Speech Pattern: Spontaneous Speech Memory Description: Remote Impaired and Episodic Impaired Hallucinations: Auditory Delusions: Paranoid Ideation and Present Perceptual Disturbances: Derealization Thought Process: Illogical, Distracted and Rumination Thought Content: positive for Circumstantial, positive for Perseveration and positive for Preoccupation Depressive Symptoms: Increased Anxiety Abnormal Motor Activity Signs and Symptoms: Restlessness Judgement: Poor Assessment & Plan Assessment & Plan (1) Bipolar disorder with psychotic features: Status: Acute Code(s): F31.9 - Bipolar disorder, unspecified Plan Bipolar Disorder with Psychosis.... Plan Admit, CV, Pt filed TDN for 10/09 Collateral contact Continue current regime Seroquel 50 mg tid Diagnostics- SARS.Flu/RSV Chest Xray Full milieu Patient educated on: medication risk/benefits, therapeutic strategies and medical condition Reason for continued inpatient stay Substantial Risk for: med/psych decompensation Statement Statement: I have reviewed the history and physical and performed a pertinent examination on my patient. No changes have occurred unless specified. If the History and Physical was not performed prior to admission, the Hospitalist's service will be consulted for completing the admission physical. Time Spent With Patient Time: Total time managing care of this patient today ____ minutes.
[2023-10-08 17:00] VITALS: TEMP 37.4
[2023-10-08] MEDS: Loperamide HCl 2 MG CAPSULE 4 MG PO (17:16)
[2023-10-08] MEDS: Acetaminophen 325 MG TABLET 650 MG PO (18:15)
[2023-10-08 19:55] VITALS: BP 119/79; PULSE 101; RESP 16; TEMP 36.9; O2SAT 98
[2023-10-08] MEDS: Melatonin 3 MG TABLET 6 MG PO (21:19)
[2023-10-08] MEDS: diphenhydrAMINE HCL 25 MG CAPSULE 50 MG PO (21:20)
[2023-10-09] MEDS: traZODone HCL 50 MG TABLET PO (03:16)
[2023-10-09] MEDS: Throat Lozenge, Medicated LOZENGE 1 LOZENGE MUCOUS MEM ×3 (03:17→14:23)
[2023-10-09] MEDS: Throat Spray, Medicated 177 ML BOTTLE 1 SPRAY MUCOUS MEM (03:17)
[2023-10-09] MEDS: Acetaminophen 325 MG TABLET 650 MG PO ×2 (03:17→14:23)
[2023-10-09] MEDS: guaiFENesin DM 600/30 1 TAB TAB.ER.12H PO ×2 (03:17→14:26)
--- NOTE | 2023-10-09 03:26 | PC.NURSE ---
Patient woke up and came to the nurses' station requesting prn's for sleep, cold/cough symptoms and headache. She was given a cough drop, Tylenol, throat spray and Trazadone Skin temperature 97.4.
[2023-10-09 08:00] VITALS: BP 96/55; PULSE 70; RESP 16; TEMP 36.8; O2SAT 97
[2023-10-09] MEDS: OXcarbazepine 150 MG TABLET PO ×3 (09:19→21:00)
[2023-10-09] MEDS: QUEtiapine Fumarate 50 MG TABLET PO (09:20)
[2023-10-09] MEDS: QUEtiapine Fumarate 25 MG TABLET 75 MG PO ×2 (14:23→21:00)
--- NOTE | 2023-10-09 14:40 | PM.EVENT ---
Event Note Date of Service: 10/09/23 Event Note: Pt reportedly with low grade fever, congestion, productive cough. CXR shows new pneumonia. CBC pending but no evidence of sepsis (Vitals stable). No documented fevers. No hypoxia. Add augmentin 875mg BID x 7 days. Repeat CXR in 3-6 weeks with pcp. Symptomatic management. Thank you for allowing me to participate in this consult. Signing off at this time. Please do not hesitate to call for further questions or for any acute medical issues. Time Spent With Patient Time: Total time managing care of this patient today ____ minutes.
--- NOTE | 2023-10-09 16:02 | PC.NURSE ---
Hannah refused stat CBC as my insurance doesnt pay for all the costs of my lab testing, I just had labs done a few days ago. A John DENG informed.
--- NOTE | 2023-10-09 19:02 | HO.PSYCHPN ---
Subjective Subjective Date of Service: 10/09/23 Reason For Visit: Bipolar Disorder Subjective Notes: 3 Day Healthcare Proxy: No Guardianship: No Medical Problems Affecting Mental Status: Yes (New dx pneumonia) Interim History: Hannah reports feeling some improvement. New dx pneumonia. She reports wanting to discharge on TDN irregardless. Mother concurs. Pt will stay with mother who will take care of her during this recovery. Pt finding Seroquel helpful, asks to increase dosage. Talking of losses she has experienced. [employer] CHANGER lost sym card which had several texts and videos of late interacting with their children. of a OD. Pt tearful- I can nevery get these memories back. Medication Compliance: Yes Side effects from medications: No Attending Groups: No Review of Systems Acute medical concerns: Yes New diagnosis of pneumonia Medical Review of Systems: unchanged Review of Systems Review of Systems cough, congestion. New diagnosis of pneumonia. Mental Status Exam Mental Status Exam Patient Appearance: Fatigued Patient Orientation: Person, Place, Time and Situation Level of Consciousness: Alert Patient Behavior: Appropriate, Talkative, Cooperative and Good Eye Contact Mood Description: Flat Affect Description: Flat Patient Cognition Impaired: No Ability to Follow Directions: Good Speech Pattern: Spontaneous Speech Memory Description: Intact Delusions: Present (Does believe that someone has been attempting to make her life more difficult at home.) Thought Process: Distracted and Rumination Thought Content: positive for Circumstantial, positive for Perseveration, positive for Suicidal Ideation (denies) and positive for Homicidal Ideation (denies) Depressive Symptoms: Sleeping More Than Usual Judgement: Good Diagnostics Vital Signs (24Hr): Vital Signs - 24 hr 10/08/23 19:55 10/09/23 08:00 Temperature 98.4 F 98.2 F Pulse Rate 101 H 70 Respiratory Rate 16 16 Blood Pressure 119/79 96/55 L Pulse Oximetry 98 97 Oxygen Delivery Method Room Air Room Air BMI result Body Mass Index 24.2 Labs 10/05/23 22:47 10/05/23 22:47 Labs: Laboratory Results - last 48 hr 10/08/23 10/08/23 07:55 09:51 Estimat Average Glucose 85 Hemoglobin A1c % 4.6 Magnesium 2.1 Triglycerides 82 Cholesterol 210 H LDL Cholesterol, Calc 135 H HDL Cholesterol 59 Vitamin B12 1014 H Folate 8.4 TSH 2.03 Free T4 0.92 Influenza Type A (PCR) NEGATIVE Influenza Type B (PCR) NEGATIVE RSV RNA Qual (PCR) NEGATIVE SARS-CoV-2 RNA (RT-PCR) NEGATIVE Imaging Radiology Impressions: ITS Impressions Chest X-Ray 10/08/23 18:26 IMPRESSION: Retrocardiac heterogeneous opacity concerning for pneumonia. Recommend follow-up imaging in 4-6 weeks to confirm resolution and exclude underlying pathology. This study was presented today June 09, 2023 for interpretation. Stat results provided at this time as requested by referring provider. Electronically signed by: Jennifer Wong MD 10/09/2023 07:17 AM EDT Medications Medications Current Medications Acetaminophen (Acetaminophen 325 Mg Tablet) 650 mg PO Q6H PRN PRN Reason: Headache/Pain Mild Scale (1-3) Last Admin: 10/09/23 14:23 Dose: 650 mg Al Hydroxide/Mg Hydroxide (Magnesium Hydrox/Alum Hydrox 30 Ml Oral.Susp) 30 ml PO Q6H PRN PRN Reason: Heartburn/Nausea Amoxicillin/Clavulanate Potassium (Amoxicillin/Potassium Clav 875 Mg Tablet) 875 mg PO BID RORY Benzocaine (Throat Lozenge, Medicated Lozenge) 1 lozenge MUCOUS MEM Q2H PRN PRN Reason: Sore Throat Last Admin: 10/09/23 14:23 Dose: 1 lozenge Diazepam (Diazepam 5 Mg Tablet) 5 mg PO BID RORY Last Admin: 10/09/23 09:28 Dose: Not Given Diphenhydramine HCl (Diphenhydramine Hcl 25 Mg Capsule) 50 mg PO BEDTIME RORY Last Admin: 10/08/23 21:20 Dose: 50 mg Guaifenesin (Guaifenesin 200 Mg/10 Ml 10 Ml Liquid) 10 ml PO Q4H PRN PRN Reason: Cough Guaifenesin/Dextromethorphan (Guaifenesin Dm 600/30 1 Tab Tab.Er.12h) 1 tab PO BID PRN PRN Reason: Congestion Last Admin: 10/09/23 14:26 Dose: 1 tab Ibuprofen (Ibuprofen 800 Mg Tablet) 800 mg PO Q8H PRN PRN Reason: Pain, Mild Last Admin: 10/07/23 18:43 Dose: 800 mg Loperamide HCl (Loperamide Hcl 2 Mg Capsule) 4 mg PO Q4H PRN PRN Reason: Diarrhea Last Admin: 10/08/23 17:16 Dose: 4 mg Magnesium Hydroxide (Milk Of Magnesia 30 Ml Oral.Susp) 30 ml PO DAILY PRN PRN Reason: Constipation Melatonin (Melatonin 3 Mg Tablet) 6 mg PO BEDTIME [facility] Last Admin: 10/08/23 21:19 Dose: 6 mg Multi-Ingred Medicated Throat [place] (Throat [place], Medicated 177 Ml Bottle) 1 spray MUCOUS MEM Q2H PRN PRN Reason: Sore Throat Last Admin: 10/09/23 03:17 Dose: 1 spray Nicotine (Nicotine 21 Mg Patch.Td24) 21 mg TRANSDERMA DAILY PRN PRN Reason: nicotine cravings Nicotine Polacrilex (Nicotine Polacrilex 2 Mg Gum) 4 mg BUCCAL Q2H PRN PRN Reason: Nicotine Cravings Oxcarbazepine (Oxcarbazepine 150 Mg Tablet) 150 mg PO TID [facility] Last Admin: 10/09/23 14:23 Dose: 150 mg Quetiapine Fumarate (Quetiapine Fumarate 25 Mg Tablet) 75 mg PO TID [facility] Last Admin: 10/09/23 14:23 Dose: 75 mg Trazodone HCl (Trazodone Hcl 50 Mg Tablet) 50 mg PO BEDTIME MRX1 PRN PRN Reason: Insomnia Last Admin: 10/09/23 03:16 Dose: 50 mg Allergies Allergies Allergy/AdvReac Type Severity Reaction Status Date / Time bupropion [From WELLBUTRIN] AdvReac Severe SI, Verified 10/06/23 14:29 urinary incontinence, severe agitation Assessment & Plan Assessment & Plan (1) Bipolar disorder with psychotic features: Status: Acute Code(s): F31.9 - Bipolar disorder, unspecified Plan Bipolar Disorder with Psychosis.... Plan Admit, CV, Pt filed TDN for 10/09 Collateral contact Continue current regime Seroquel 50 mg tid Diagnostics- SARS.Flu/RSV Chest Xray Full milieu 10/08: Pt to discharge 10/09 on TDN New diagnosis of pneumonia Mother concurs, will have pt go to her home and she will provide supportive care. Reason for continued inpatient stay Substantial Risk for: med/psych decompensation Time Spent With Patient Time: Total time managing care of this patient today ____ minutes.
[2023-10-09 19:46] VITALS: BP 131/69; PULSE 104; RESP 16; TEMP 36.4; O2SAT 97
[2023-10-09] MEDS: Melatonin 3 MG TABLET 6 MG PO (20:58)
[2023-10-09] MEDS: diphenhydrAMINE HCL 25 MG CAPSULE 50 MG PO (20:59)
[2023-10-10] MEDS: Acetaminophen 325 MG TABLET 650 MG PO (06:36)
[2023-10-10] MEDS: Throat Lozenge, Medicated LOZENGE 1 LOZENGE MUCOUS MEM (06:44)
[2023-10-10 07:59] VITALS: BP 111/56; PULSE 86; RESP 16; TEMP 37.7; O2SAT 97
[2023-10-10 08:13] VITALS: TEMP 36.9
[2023-10-10] MEDS: QUEtiapine Fumarate 25 MG TABLET 75 MG PO (08:51)
[2023-10-10] MEDS: OXcarbazepine 150 MG TABLET PO (08:51)
--- NOTE | 2023-10-10 12:04 | PM.PSYDC ---
DS: Providers Provider Date of Service: 10/10/23 Date of admission: 10/07/23 15:11 Date of discharge: 10/10/23 Primary care physician: Chandler Viera DO, MD Admitting clinician: Mariia Guerrero Attending physician on admission: Godfrey Gordon Consults: 10/09/23 14:11 Consult to Hospitalist Routine Comment: Consulting Provider: Hospitalist Reason For Exam: new dx pneumonia via chest xray Attending physician on discharge: Godfrey Gordon Discharging clinician: Mariia Guerrero DS: Diagnosis Discharge Diagnosis (1) Bipolar disorder with psychotic features: Status: Acute DS: Medications Discharge Medications Home Medications: Home Medications ?Medication ?Instructions ?Recorded ?Confirmed diazepam 5 mg tablet 5 mg PO BID 10/05/23 10/05/23 ibuprofen 800 mg tablet 800 mg PO Q8H PRN Pain, Mild 10/05/23 10/05/23 Previous Rx's ?Medication ?Instructions ?Recorded clotrimazole 1 % topical cream 1 appl topical BID 2 weeks #45 10/07/23 grams acetaminophen 325 mg tablet 650 mg (2 x 325 mg) PO Q6H PRN 10/10/23 Headache/Pain Mild Scale (1-3) #60 tabs amoxicillin 875 mg-potassium 1 tab PO BID #12 tabs 10/10/23 clavulanate 125 mg tablet benzocaine 15 mg-menthol 3.6 mg 1 bay mucous membrane Q2H PRN Sore 10/10/23 lozenges (Sore Throat (benzocaine Throat #60 ea with menthol)) dextromethorphan-guaifenesin 30 1 tab PO BID PRN Congestion #30 10/10/23 mg-600 mg tablet extended tabs [id number] hr (Mucus DM) diphenhydramine HCl 25 mg capsule 50 mg (2 x 25 mg) PO BEDTIME PRN 10/10/23 (Banophen) insomnia #30 caps loperamide 2 mg capsule 4 mg (2 x 2 mg) PO Q4H PRN 10/10/23 Diarrhea #15 caps oxcarbazepine 150 mg tablet 150 mg PO TID #90 tabs 10/10/23 phenol 1.4 % mucosal aerosol spray 1 spray mucous membrane Q2H PRN 10/10/23 (Chloraseptic Throat [place]) Sore Throat #177 mL quetiapine 25 mg tablet 75 mg (3 x 25 mg) PO TID #180 tabs 10/10/23 trazodone 50 mg tablet 50 mg PO BEDTIME MRX1 PRN Insomnia 10/10/23 #30 tabs Mental Status Exam Mental Status Exam Patient Appearance: Fatigued Patient Orientation: Person, Place, Time and Situation Level of Consciousness: Alert Patient Behavior: Appropriate, Talkative, Cooperative and Good Eye Contact Mood Description: Flat Affect Description: Flat Patient Cognition Impaired: No Ability to Follow Directions: Good Speech Pattern: Spontaneous Speech Memory Description: Intact Delusions: Present (Does believe that someone has been attempting to make her life more difficult at home.) Thought Process: Distracted and Rumination Thought Content: positive for Circumstantial, positive for Perseveration, positive for Suicidal Ideation (denies) and positive for Homicidal Ideation (denies) Depressive Symptoms: Sleeping More Than Usual Judgement: Good Data Data Completed and Pending Completed studies during hospitalization [Text1]: 10/05/23 10/06/23 10/08/23 22:47 12:19 07:55 WBC 4.9 RBC 3.87 L Hgb 12.3 Hct 34.8 L MCV 89.9 MCH 31.8 MCHC 35.3 H RDW 12.0 Plt Count 205 MPV 8.2 L Immature Gran % (Auto) 0.0 Neut % (Auto) 51.8 Lymph % (Auto) 30.9 [place] % (Auto) 14.2 H Eos % (Auto) 2.1 Baso % (Auto) 1.0 Lymph # (Auto) 1.5 [place] # (Auto) 0.7 Eos # (Auto) 0.1 Baso # (Auto) 0.1 Abs Immat Gran (auto) 0.00 Absolute Neuts (auto) 2.5 Absolute Nucleated RBC 0.000 Nucleated RBC % (auto) 0.0 Sodium 140 Potassium 3.6 Chloride 108 Carbon Dioxide 25 Anion Gap 11 L BUN 14 Creatinine 0.82 Estim Creat Clear Calc 84.5 Estimated GFR > 60 Random Glucose 104 Estimat Average Glucose 85 Hemoglobin A1c % 4.6 Calcium 9.2 Magnesium 2.1 Troponin I High Sens < 2.7 Triglycerides 82 Cholesterol 210 H LDL Cholesterol, Calc 135 H HDL Cholesterol 59 Vitamin B12 1014 H Folate 8.4 TSH 2.03 Free T4 0.92 Beta HCG, Quant < 2 Urine Color Dark Yellow Urine Appearance Clear Urine pH 6.0 Ur Specific [place] >= 1.030 H Urine Protein 30 (1+) H Urine Glucose (UA) Negative Urine Ketones 40 Urine Blood Negative Urine Nitrite Negative Ur Leukocyte Esterase Negative Urine RBC 0-2 Urine WBC 0-5 Ur Squamous Epith Cells 0-2 Urine Bacteria 1+ Hyaline Casts 0-2 Urine Test NEGATIVE Salicylates < 5.0 L Urine Opiates Screen Not Detected Ur Buprenorphine Scrn Not Detected Ur Oxycodone Screen Not Detected Urine Methadone Screen Not Detected Urine Fentanyl Screen Not Detected Acetaminophen < 3 Ur Barbiturates Screen Not Detected Ur Phencyclidine Scrn Not Detected Ur Amphetamines Screen Not Detected U Benzodiazepines Scrn POSITIVE H Urine Cocaine Screen Not Detected U Marijuana (THC) Screen Not Detected Influenza Type A (PCR) Influenza Type B (PCR) RSV RNA Qual (PCR) SARS-CoV-2 RNA (RT-PCR) 10/08/23 09:51 WBC RBC Hgb Hct MCV MCH MCHC RDW Plt Count MPV Immature Gran % (Auto) Neut % (Auto) Lymph % (Auto) [place] % (Auto) Eos % (Auto) Baso % (Auto) Lymph # (Auto) [place] # (Auto) Eos # (Auto) Baso # (Auto) Abs Immat Gran (auto) Absolute Neuts (auto) Absolute Nucleated RBC Nucleated RBC % (auto) Sodium Potassium Chloride Carbon Dioxide Anion Gap BUN Creatinine Estim Creat Clear Calc Estimated GFR Random Glucose Estimat Average Glucose Hemoglobin A1c % Calcium Magnesium Troponin I High Sens Triglycerides Cholesterol LDL Cholesterol, Calc HDL Cholesterol Vitamin B12 Folate TSH Free T4 Beta HCG, Quant Urine Color Urine Appearance Urine pH Ur Specific [place] Urine Protein Urine Glucose (UA) Urine Ketones Urine Blood Urine Nitrite Ur Leukocyte Esterase Urine RBC Urine WBC Ur Squamous Epith Cells Urine Bacteria Hyaline Casts Urine Test Salicylates Urine Opiates Screen Ur Buprenorphine Scrn Ur Oxycodone Screen Urine Methadone Screen Urine Fentanyl Screen Acetaminophen Ur Barbiturates Screen Ur Phencyclidine Scrn Ur Amphetamines Screen U Benzodiazepines Scrn Urine Cocaine Screen U Marijuana (THC) Screen Influenza Type A (PCR) NEGATIVE Influenza Type B (PCR) NEGATIVE RSV RNA Qual (PCR) NEGATIVE SARS-CoV-2 RNA (RT-PCR) NEGATIVE Imaging Diagnostic Imaging Impressions Chest X-Ray 10/08/23 18:26 IMPRESSION: Retrocardiac heterogeneous opacity concerning for pneumonia. Recommend follow-up imaging in 4-6 weeks to confirm resolution and exclude underlying pathology. This study was presented today June 09, 2023 for interpretation. Stat results provided at this time as requested by referring provider. Electronically signed by: Jennifer Wong MD 10/09/2023 07:17 AM EDT RP DS: Summary Hospital Course Hospital Course: Admission to adult psychiatry for exacerbation of sx of bipolar disorder-depression with sx of psychosis. Mother reports sx were precipitous, never present by history and pt had no sleep for 72 hours [employer]. Pt reports sleep, appetite disturbance, no SI, feels she is being monitored at home and has had significant fever for several days prior to admission. Pt presents with significant URI sx, cough, sore throat, congestion. She slept a great deal during this admission. SARS/RSV/Flu negative. Chest xray positive for pneumonia. Amoxicillin initiated by hospitalist. Pt will accept this Rx at home as she reports she needs to restart her vitamin/probiotic regime to tolerate antibiotics. Seroquel was initiated and titrated with positive success. Pt would not reconsider retraction of TDN however is aware she may call or return as needed for treatment should sx not resolve with treatment for pneumonia. Status at Discharge Functional status at discharge: independent ambulation Overall status at discharge: patient is progressing back to baseline Time Spent with Patient Time attestation: Total time managing care of this patient today ____ minutes. Time spent: Less than 30 minutes Discharge Plan Discharge Anticipated Discharge Date/Time: 10/10/23 12:00 Patient Disposition: Home, Self-Care Discharge Diagnosis: Bipolar Disorder Pneumonia Referrals: [facility] [Outside] Chandler Viera DO, MD [Primary Care Provider] - 10/17/23 12:45 pm (in office) Discharge Medications: New clotrimazole 1 % cream 1 appl topical BID 14 Days Qty: 45 0RF Rx Instructions: Apply to lesion on back of neck amoxicillin-pot clavulanate 875-125 mg Tablet 1 tab PO BID Qty: 12 0RF diphenhydramine HCl [Banophen] 25 mg Capsule 50 mg PO BEDTIME PRN (Reason: insomnia) Qty: 30 0RF acetaminophen 325 mg Tablet 650 mg PO Q6H PRN (Reason: Headache/Pain Mild Scale (1-3)) Qty: 60 0RF quetiapine 25 mg Tablet 75 mg PO TID Qty: 180 0RF loperamide 2 mg Capsule 4 mg PO Q4H PRN (Reason: Diarrhea) Qty: 15 0RF trazodone 50 mg Tablet 50 mg PO BEDTIME MRX1 PRN (Reason: Insomnia) Qty: 30 0RF Mucus DM 30-600 mg Tablet Extended Release 12 Hr 1 tab PO BID PRN (Reason: Congestion) Qty: 30 0RF Chloraseptic Throat [place] 1.4 % Aerosol,[place] 1 spray mucous membrane Q2H PRN (Reason: Sore Throat) Qty: 177 0RF Sore Throat (benzocaine-menth) 15-3.6 mg Lozenge 1 bay mucous membrane Q2H PRN (Reason: Sore Throat) Qty: 60 0RF Continued diazepam 5 mg tablet 5 mg PO BID ibuprofen 800 mg tablet 800 mg PO Q8H PRN (Reason: Pain, Mild) oxcarbazepine 150 mg tablet 150 mg PO TID Qty: 90 0RF Discharge Orders: Discharge Order (Routine); Ordered 10/10/23 Ordered By: Mariia Guerrero Diet: Advance to usual diet Activity on Discharge: As tolerated Stand Alone Forms: Patient Portal Discharge page, Community Support Print Language: Bulgarian Care Plan Goals: Mood and Behavioral Stabilization Health Concerns: Mood and Behavioral Stabilization Plan of Treatment: Attend scheduled appointments Take medications as directed Call/Return as needed. You have been diagnosed with pneumonia. Return to emergency if symptoms worsen, if you have shortness of breath, if fever increases. Assessment: Discharge on a three day notice of intent. No SI/HI/AH/VH sx of tim or psychosis Patient Instructions: Bacterial Pneumonia (IP) Discharge Date/Time: 10/10/23 11:07
== END 2023-10-10 11:07 | disposition home or self-care (01) | DRG 753 ==
LOC: HO.ED 10-07 10:43 → HO.PM5 10-07 15:28
PROVIDERS: Emergency Medicine; Emergency Medicine Emergency Medical Services; Admitting Provider Clinical Nurse Specialist Psychiatric/Mental Health, Adult; Emergency Provider Emergency Medicine; PCP Internal Medicine; Visit Provider Clinical Nurse Specialist Psychiatric/Mental Health, Adult
DX: F31.5 Bipolar disorder, current episode depressed, severe, with psychotic features (principal); J18.9 Pneumonia, unspecified organism; Z20.822 Contact with and (suspected) exposure to COVID-19; Z79.899 Other long term (current) drug therapy
CPT/HCPCS: 0241U; 36415; 71046; 80048; 80061; 80143; 80179; 80307; 81001; 81025; 82607; 82746; 83036; 83735; 84439; 84443; 84484; 84702; 85025; 93005; 99285; S9485

== ENCOUNTER → 2023-10-07 15:11 | Outpatient (BNV) | payer OTHER, SELFPAY | PROVIDERS: Admitting Provider Clinical Nurse Specialist Psychiatric/Mental Health, Adult; Emergency Provider Emergency Medicine; PCP Internal Medicine; Visit Provider Clinical Nurse Specialist Psychiatric/Mental Health, Adult | DX: F31.5 Bipolar disorder, current episode depressed, severe, with psychotic features (principal) | CPT/HCPCS: 90792; 99232; 99238 ==

== ENCOUNTER 2023-10-15 14:38 | Inpatient (IN) | payer OTHER, SELFPAY ==
[2023-10-15 14:41] VITALS: BP 152/90; PULSE 80; O2SAT 97
[2023-10-15 15:01] VITALS: BP 148/100; PULSE 89; RESP 16; TEMP 36.6; O2SAT 97; BMI 23.4
--- NOTE | 2023-10-15 15:38 | ED.PSYCH ---
HPI - Psych General Chief Complaint: Psychiatric Symptoms Stated Complaint: CRISIS EVAL,NOT FEELING OF SOUND MIND PER EMS Time Seen by Provider: 10/15/23 15:09 Source: EMS and old records reviewed Mode of arrival: EMS Limitations: other (patient is not talking to me currently) History of Present Illness ED Provider: YASMANY HPI Narrative: 38 yo female with PMH of bipolar who presented to an urgent care acting unusual so EMS was called on arrival here she is either not speaking or whispering to herself. She has no obvious trauma. There is no other history provided. She will not speak to me at this time. complaint: other (reportedly had delusions at urgent care) Onset (ago): unknown Duration: other History of same: Yes Relieving factors: none Exacerbating factors: other Context: other Associated psychiatric symptoms: none Associated symptoms: denies other symptoms Treatments prior to arrival: none Related Data Home Medications ?Medication ?Instructions ?Recorded ?Confirmed diazepam 5 mg tablet 5 mg PO BID 10/05/23 10/05/23 ibuprofen 800 mg tablet 800 mg PO Q8H PRN Pain, Mild 10/05/23 10/05/23 Previous Rx's ?Medication ?Instructions ?Recorded clotrimazole 1 % topical cream 1 appl topical BID 2 weeks #45 10/07/23 grams acetaminophen 325 mg tablet 650 mg (2 x 325 mg) PO Q6H PRN 10/10/23 Headache/Pain Mild Scale (1-3) #60 tabs amoxicillin 875 mg-potassium 1 tab PO BID #12 tabs 10/10/23 clavulanate 125 mg tablet benzocaine 15 mg-menthol 3.6 mg 1 bay mucous membrane Q2H PRN Sore 10/10/23 lozenges (Sore Throat (benzocaine Throat #60 ea with menthol)) dextromethorphan-guaifenesin 30 1 tab PO BID PRN Congestion #30 10/10/23 mg-600 mg tablet extended tabs [id number] hr (Mucus DM) diphenhydramine HCl 25 mg capsule 50 mg (2 x 25 mg) PO BEDTIME PRN 10/10/23 (Banophen) insomnia #30 caps loperamide 2 mg capsule 4 mg (2 x 2 mg) PO Q4H PRN 10/10/23 Diarrhea #15 caps oxcarbazepine 150 mg tablet 150 mg PO TID #90 tabs 10/10/23 phenol 1.4 % mucosal aerosol spray 1 spray mucous membrane Q2H PRN 10/10/23 (Chloraseptic Throat [place]) Sore Throat #177 mL quetiapine 25 mg tablet 75 mg (3 x 25 mg) PO TID #180 tabs 10/10/23 trazodone 50 mg tablet 50 mg PO BEDTIME MRX1 PRN Insomnia 10/10/23 #30 tabs Allergies Allergy/AdvReac Type Severity Reaction Status Date / Time bupropion [From WELLBUTRIN] AdvReac Severe SI, Verified 10/15/23 15:04 urinary incontinence, severe agitation Review of Systems Review of Systems: ROS unable to be obtained due to no communication from the patient [facility] Past Medical History Attestation statement: The following information was validated with the patient. Source: old records reviewed Medical History Bipolar disorder with psychotic features Depression Anxiety Asthma Kidney stone Substance abuse Social History Social History Household Members: Children and Other Household Members Other:: mom Housing: House Do you presently have visiting nurse or other home services: No Alcohol intake: never Patient Tobacco Use Status: Former Tobacco user e-Cigarette/Vaping Use: Never Used Second Hand Smoke Exposure: No service: No Sexual orientation: Straight/Heterosexual Physical Exam Vital Signs: Vital Signs: Last Vital Signs Temp 97.8 F 10/15/23 15:01 Pulse 89 10/15/23 15:01 Resp 16 10/15/23 15:01 BP 148/100 H 10/15/23 15:01 Pulse Ox 97 10/15/23 15:01 O2 Del Method Room Air 10/15/23 15:01 BMI result Body Mass Index 23.4 Appearance: whispering to herself, no signs of trauma. No acute distress. Eyes: will not open her eyes for me ENT: Pharynx normal. atraumatic Neck: Normal inspection. Neck supple. CVS: Pulses normal. Respiratory: No respiratory distress. Abdomen: atraumatic Skin: Skin warm and dry. Normal skin color. Extremities: No lower extremity edema. Neuro: does not participate in exam at all will not answer questions Course Course Course Narrative: signed out to oncoming provider labs pending Medical Decision Making Medical Decision Making MDM Narrative: 38 yo female with PMH of bipolar here with reported delusions at urgent care she is not speaking to me I do not see any trauma - at this time labs, CARE team consult ordered, she at times is whispering to herself. I am going to place S12 on chart until we figure out what is going on given history. Differential Diagnosis Differential Diagnoses: The differential diagnosis associated with the presentation includes bipolar disorder, substance abuse Admission/Observation Consideration of admission/observation: Escalation of care including admission/observation considered physician observation started at 345pm pending CARE team Consult Healthcare Provider Management of the patient was discussed with: Behavioral Health Provider Independent Historian Clinical information obtained from an independent historian. History obtained from or confirmed by: EMS External Record Review External record reviewed: Inpatient record Discharge Plan Discharge Clinical Impression: Bipolar disorder Patient Disposition: Still a Patient Prescriptions: No Action diazepam 5 mg tablet 5 mg PO BID ibuprofen 800 mg tablet 800 mg PO Q8H PRN (Reason: Pain, Mild) clotrimazole 1 % cream 1 appl topical BID 14 Days Qty: 45 0RF Rx Instructions: Apply to lesion on back of neck amoxicillin-pot clavulanate 875-125 mg Tablet 1 tab PO BID Qty: 12 0RF diphenhydramine HCl [Banophen] 25 mg Capsule 50 mg PO BEDTIME PRN (Reason: insomnia) Qty: 30 0RF acetaminophen 325 mg Tablet 650 mg PO Q6H PRN (Reason: Headache/Pain Mild Scale (1-3)) Qty: 60 0RF quetiapine 25 mg Tablet 75 mg PO TID Qty: 180 0RF loperamide 2 mg Capsule 4 mg PO Q4H PRN (Reason: Diarrhea) Qty: 15 0RF trazodone 50 mg Tablet 50 mg PO BEDTIME MRX1 PRN (Reason: Insomnia) Qty: 30 0RF Mucus DM 30-600 mg Tablet Extended Release 12 Hr 1 tab PO BID PRN (Reason: Congestion) Qty: 30 0RF Chloraseptic Throat [place] 1.4 % Aerosol,[place] 1 spray mucous membrane Q2H PRN (Reason: Sore Throat) Qty: 177 0RF Sore Throat (benzocaine-menth) 15-3.6 mg Lozenge 1 bay mucous membrane Q2H PRN (Reason: Sore Throat) Qty: 60 0RF oxcarbazepine 150 mg tablet 150 mg PO TID Qty: 90 0RF Interventions: [place]-Suicide Risk Severity Scale Last Done: 10/15/23 15:39 Print Language: Tajik
[2023-10-15 15:42] VITALS: RESP 16
[2023-10-15 17:45] LABS: MANUAL DIFF FLAG NO
--- NOTE | 2023-10-15 17:56 | PC.NURSE ---
Pt observed to be self-dialoguing in her room by herself. when this RN approached patient, she verbalizes that she has been having racing thoughts since being discharged from this facility on 10/09. Pt is calm and cooperative, allowed this RN to take blood work without issue. Pt denies needing to use bathroom at this time to provide urine sample. No apparent distress noted
[2023-10-15 18:10] LABS: Basophils Absolute Auto 0.1 X10*3/uL (0.0-0.2); Basophils Percent Auto 0.9 % (0-2); Eosinophils Percent Auto 0.3 % (0-4); Hematocrit 35.1 % (37.0-47.0); Hemoglobin 12.7 g/dl (12.0-16.0); Imm Gran Abs Auto 0.05 X10*3/uL (0.00-0.03); Imm Gran Pct Auto 0.7 % (0.0-0.4); Lymphocytes Absolute Auto 1.9 X10*3/uL (1.2-4.9); Lymphocytes Percent Auto 27.3 % (20-40); Mean Corpuscular HGB Conc 36.2 g/dl (31.0-35.0); Mean Corpuscular Hemoglobin 33.1 pg (27.0-33.0); Mean Corpuscular Volume 91.4 fL (80.0-98.0); Mean Platelet Volume 8.1 fL (9.4-12.3); Monocytes Absolute Auto 0.6 X10*3/uL (0.1-1.2); Neutrophils Absolute Auto 4.3 x10*3/uL (2.0-8.3); Neutrophils Percent Auto 62.8 % (45-73); Platelet Count 456 X10*3/uL (160-400); Red Blood Count 3.84 X10*6/uL (4.20-5.50); Red Cell Distribution Width 11.7 % (11.0-16.0); White Blood Count 6.9 X10*3/uL (4.8-10.8)
[2023-10-15 18:16] LABS: Alanine Aminotransferase 57 U/L (0-31); Albumin Level 4.4 g/dL (3.5-5.0); Alkaline Phosphatase 70 U/L (39-117); Anion Gap 15 (12-20); Aspartate Amino Transferase 36 U/L (5-31); Bilirubin Direct 0.1 mg/dL (0.0-0.5); Bilirubin Total 0.4 mg/dL (0.0-1.0); Blood Urea Nitrogen 12 mg/dL (9-16); Calcium 9.6 mg/dL (8.4-10.2); Carbon Dioxide 22 mmol/L (22-29); Chloride 109 mmol/L (96-108); Creatinine Clr Calc Pharmacy 86.4; Estimated Glomerular Filt Rate > 60; Ethanol < 10 mg/dL; Glucose Random 98 mg/dL (60-115); Magnesium 2.2 mg/dL (1.6-2.6); Potassium 3.7 mmol/L (3.3-5.1); Sodium 142 mmol/L (135-145)
--- NOTE | 2023-10-15 18:59 | PC.NURSE ---
this rn assumed care of pt, pt appears to be pacing and hyperverbal, pt re-directable at this time,
--- NOTE | 2023-10-15 19:37 | PC.NURSE ---
this RN offered pt ativan at this time, pt reports she does not want to take it.
--- NOTE | 2023-10-15 22:14 | PC.NURSE ---
pt attempting to enter other patient rooms at this time, pt re directed into her own pt room at this time.
--- NOTE | 2023-10-16 06:18 | PC.NURSE ---
attempted to get urine sample from pt, pt continuously throwing urine cup onto floor, pt reports she is unable to provide urine sample.
[2023-10-16 06:24] VITALS: BP 123/80; PULSE 70; RESP 16; TEMP 36.4; O2SAT 98
--- NOTE | 2023-10-16 09:21 | PC.NURSE ---
patient refusing EKG and urine sample at this time
[2023-10-16 15:22] VITALS: BP 122/64; PULSE 92; TEMP 37.1; O2SAT 96
--- NOTE | 2023-10-16 17:50 | PC.ADMIT ---
Patient was admitted to at 1150 from the Pod on a CV for treatment of Bipolar d/o with psychotic features. Pt went to the urgent care to get help with her racing thoughts and while there the pt was self dialoguing and reporting AH . The pt was sent to the [facility] and continued to self dialogue, was difficult to engage and refused medications. The pt was recently discharged from approx 5 days ago and her mother reports that she stopped taking her medications, had poor sleep and wasn?t eating normally. Upon admission pt had a depressed and anxious mood with a flat affect, Pt was guarded and suspicious of staff. Pt appeared preoccupied and had delayed responses. Most information was retracted from the intake as pt had difficulty responding to questions, using head nods to answer. Pt denies SI/HI. Pt frequently placed face in hands, would become tearful and did not answer. Pts? tox screen was negative. Pt was A&O x3.? Pt denied SI/HI/AH/VH. Pt has no ideation, plan or intent to harm self or others. Pt denies any medical issues or concerns. Pt had? psychiatric services set up when she was discharged from , it is unclear if she used any of these. Skin check was completed w/o a difficulty, skin is intact. Pt placed on 15 minute safety checks
[2023-10-16 19:19] VITALS: BMI 23.6
[2023-10-16 20:00] VITALS: BP 109/75; PULSE 89; RESP 16; TEMP 36.4; O2SAT 97
[2023-10-16] MEDS: OXcarbazepine 150 MG TABLET PO (20:03)
[2023-10-16] MEDS: diazePAM 5 MG TABLET PO (20:03)
[2023-10-16] MEDS: Melatonin 3 MG TABLET 6 MG PO (20:03)
[2023-10-16] MEDS: QUEtiapine Fumarate 25 MG TABLET 75 MG PO (20:03)
[2023-10-17 07:38] VITALS: BP 121/73; PULSE 93; RESP 16; TEMP 37.1; O2SAT 96
[2023-10-17] MEDS: QUEtiapine Fumarate 25 MG TABLET 75 MG PO ×3 (09:02→20:52)
[2023-10-17] MEDS: diazePAM 5 MG TABLET PO ×2 (09:03→20:53)
[2023-10-17] MEDS: OXcarbazepine 150 MG TABLET PO ×3 (09:03→20:53)
[2023-10-17 09:05] LABS: Estimated Average Glucose 94 mg/dL; Hemoglobin A1c % 4.9 % (<6.0)
[2023-10-17 09:10] LABS: Cholesterol 197 mg/dL (<200); HDL Cholesterol 44 mg/dL (>40); LDL Cholesterol Calculated 133 mg/dL (<100); Triglycerides 101 mg/dL (<150)
[2023-10-17 09:28] LABS: Free T4 (Free Thyroxine) 0.95 ng/dL (0.71-1.85)
[2023-10-17 09:39] LABS: Vitamin B12 820 pg/mL (200-900)
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
[2023-10-17] MEDS: Lithium Carbonate ER 300 MG TABLET.ER PO ×2 (13:03→20:53)
[2023-10-17 20:00] VITALS: BP 116/74; PULSE 91; RESP 16; TEMP 36.6; O2SAT 97
[2023-10-17] MEDS: Melatonin 3 MG TABLET 6 MG PO (20:53)
[2023-10-18 08:00] VITALS: BP 128/67; PULSE 96; RESP 16; TEMP 37; O2SAT 98
[2023-10-18] MEDS: Lithium Carbonate ER 300 MG TABLET.ER PO ×2 (09:08→21:20)
[2023-10-18] MEDS: OXcarbazepine 150 MG TABLET PO ×3 (09:08→21:20)
[2023-10-18] MEDS: QUEtiapine Fumarate 25 MG TABLET 75 MG PO ×3 (11:25→21:18)
[2023-10-18] MEDS: Amoxicillin/Potassium Clav 875 MG TABLET PO ×2 (11:26→22:20)
[2023-10-18] MEDS: Acetaminophen 325 MG TABLET 650 MG PO (11:26)
[2023-10-18] MEDS: Throat Lozenge, Medicated LOZENGE 1 LOZENGE MUCOUS MEM (11:26)
--- NOTE | 2023-10-18 14:03 | P.PNPSI_ITS ---
Subjective Subjective Date of Service: 10/18/23 Reason For Visit: Haley Interim History: calm, cooperative. more organized than yesterday, better able to get her words out. feels lithium made a sudden positive change for her. c/o sore throat and cough. asking for antibx, referring MD to CXR done last time she was here. per staff, unable to answer assessment questions. refused valium. awaiting mother's visit to take seroquel. taking lithium. Mental Status Exam Mental Status Exam Narrative: adequately dressed and groomed, cooperative, no PMA/PMR. speech nml amount, nml loudness and rate and tone. thoughts generally linear. no delusions or paranoia expressed. affect flexible, normo-intense, non-labile. mood improved. no SI/SIBI/HI/AVH expressed. Diagnostics Vital Signs (24Hr): Vital Signs - 24 hr 10/17/23 20:00 10/18/23 08:00 Temperature 97.8 F 98.6 F Pulse Rate 91 96 Respiratory Rate 16 16 Blood Pressure 116/74 128/67 Pulse Oximetry 97 98 Oxygen Delivery Method Room Air Room Air BMI result Body Mass Index 23.6 Labs 10/15/23 17:38 10/15/23 17:38 Labs: Laboratory Results - last 48 hr 10/17/23 08:08 Estimat Average Glucose 94 Hemoglobin A1c % 4.9 Triglycerides 101 Cholesterol 197 LDL Cholesterol, Calc 133 H HDL Cholesterol 44 Vitamin B12 820 Folate 12.0 TSH 1.30 Free T4 0.95 Medications Medications Current Medications Acetaminophen (Acetaminophen 325 Mg Tablet) 650 mg PO Q6H PRN PRN Reason: Headache/Pain Mild Scale (1-3) Last Admin: 10/18/23 11:26 Dose: 650 mg Al Hydroxide/Mg Hydroxide (Magnesium Hydrox/Alum Hydrox 30 Ml Oral.Susp) 30 ml PO Q6H PRN PRN Reason: Heartburn/Nausea Amoxicillin/Clavulanate Potassium (Amoxicillin/Potassium Clav 875 Mg Tablet) 875 mg PO Q12H RORY Stop: 10/25/23 11:14 Last Admin: 10/18/23 11:26 Dose: 875 mg Benzocaine (Throat Lozenge, Medicated Lozenge) 1 lozenge MUCOUS MEM Q2H PRN PRN Reason: Sore Throat Last Admin: 09/06/24 11:26 Dose: 1 lozenge Diazepam (Diazepam 5 Mg Tablet) 5 mg PO BID [facility] Last Admin: 10/18/23 09:09 Dose: Not Given Diphenhydramine HCl (Diphenhydramine Hcl 25 Mg Capsule) 50 mg PO BEDTIME PRN PRN Reason: insomnia Hydroxyzine HCl (Hydroxyzine Hcl 25 Mg Tablet) 25 mg PO Q6H PRN PRN Reason: Anxiety [place] Carbonate ([place] Carbonate Er 300 Mg Tablet.Er) 300 mg PO BID [facility] Last Admin: 10/18/23 09:08 Dose: 300 mg Magnesium Hydroxide (Milk Of Magnesia 30 Ml Oral.Susp) 30 ml PO DAILY PRN PRN Reason: Constipation Melatonin (Melatonin 3 Mg Tablet) 6 mg PO BEDTIME [facility] Last Admin: 10/17/23 20:53 Dose: 6 mg Nicotine Polacrilex (Nicotine Polacrilex 2 Mg Gum) 4 mg BUCCAL Q2H PRN PRN Reason: Nicotine Cravings Oxcarbazepine (Oxcarbazepine 150 Mg Tablet) 150 mg PO TID [facility] Last Admin: 10/18/23 09:08 Dose: 150 mg Quetiapine Fumarate (Quetiapine Fumarate 25 Mg Tablet) 75 mg PO TID [facility] Last Admin: 10/18/23 11:25 Dose: 75 mg Trazodone HCl (Trazodone Hcl 50 Mg Tablet) 50 mg PO BEDTIME MRX1 PRN PRN Reason: Insomnia Allergies Allergies Allergy/AdvReac Type Severity Reaction Status Date / Time bupropion [From WELLBUTRIN] AdvReac Severe SI, Verified 10/15/23 15:04 urinary incontinence, severe agitation Assessment & Plan Assessment & Plan (1) Bipolar disorder with psychotic features: Status: Acute Code(s): F31.9 - Bipolar disorder, unspecified Plan 10/16: continue outpt regimen. add lithium 300 BID. 10/17: already appreciating improvement from lithium. chart reviewed, including CXR from last visit and medical plan for PNA. augmentin BID restarted for 7 days. cepacol lozenge Rxed. will check COVID. Reason for continued inpatient stay Substantial Risk for: inability to function and rapid decompensation Time Spent With Patient Time: Total time managing care of this patient today _25___ minutes.
[2023-10-18 15:07] LABS: IDNOW Serial# 152EDE1D
[2023-10-18 15:08] LABS: COVID-19 Test Negative (Negative)
[2023-10-18] MEDS: A and D Ointment 56.7 GM TUBE 1 APPL TOPICAL ×2 (16:56→22:19)
[2023-10-18] MEDS: Loperamide HCl 2 MG CAPSULE PO (17:13)
[2023-10-18 20:00] VITALS: BP 113/69; PULSE 79; RESP 16; TEMP 36.4; O2SAT 98
[2023-10-18] MEDS: Melatonin 3 MG TABLET 6 MG PO (21:19)
[2023-10-18] MEDS: diazePAM 5 MG TABLET PO (21:21)
[2023-10-19 08:00] VITALS: BP 106/57; PULSE 75; RESP 14; TEMP 36.4; O2SAT 99
--- NOTE | 2023-10-19 08:07 | HO.PSYCHPN ---
Subjective Subjective Date of Service: 10/19/23 Reason For Visit: Haley Subjective Notes: [place] Warning and 3 Day Medical Problems Affecting Mental Status: No Interim History: organized. STates things are better and feeling focused and not confused. ALso thankful for sleep. Appetite good. Parents supportive and will have their support upon discharge. Denies depression, SI, HI, psychosis etc.. . Medication Compliance: Yes Side effects from medications: No Attending Groups: Yes Mental Status Exam Mental Status Exam Narrative: adequately dressed and groomed, cooperative, no PMA/PMR. speech nml amount, nml loudness and rate and tone. thoughts linear. no delusions or paranoia expressed. affect flexible, normo-intense, non-labile. mood improved. no SI/SIBI/HI/AVH expressed. Diagnostics Vital Signs (24Hr): Vital Signs - 24 hr 10/18/23 20:00 Temperature 97.5 F Pulse Rate 79 Respiratory Rate 16 Blood Pressure 113/69 Pulse Oximetry 98 Oxygen Delivery Method Room Air BMI result Body Mass Index 23.6 Labs 10/15/23 17:38 10/15/23 17:38 Labs: Laboratory Results - last 48 hr 10/17/23 10/18/23 08:08 14:38 Estimat Average Glucose 94 Hemoglobin A1c % 4.9 Triglycerides 101 Cholesterol 197 LDL Cholesterol, Calc 133 H HDL Cholesterol 44 Vitamin B12 820 Folate 12.0 TSH 1.30 Free T4 0.95 COVID-19 (LEANDRO) Negative COVID-19 Clin Com See Note Medications Medications Current Medications Acetaminophen (Acetaminophen 325 Mg Tablet) 650 mg PO Q6H PRN PRN Reason: Headache/Pain Mild Scale (1-3) Last Admin: 10/18/23 11:26 Dose: 650 mg Al Hydroxide/Mg Hydroxide (Magnesium Hydrox/Alum Hydrox 30 Ml Oral.Susp) 30 ml PO Q6H PRN PRN Reason: Heartburn/Nausea Amoxicillin/Clavulanate Potassium (Amoxicillin/Potassium Clav 875 Mg Tablet) 875 mg PO Q12H RORY Stop: 10/25/23 11:14 Last Admin: 10/18/23 22:20 Dose: 875 mg Benzocaine (Throat Lozenge, Medicated Lozenge) 1 lozenge MUCOUS MEM Q2H PRN PRN Reason: Sore Throat Last Admin: 10/18/23 11:26 Dose: 1 lozenge Diazepam (Diazepam 5 Mg Tablet) 5 mg PO BID [facility] Last Admin: 10/18/23 21:21 Dose: 5 mg Diphenhydramine HCl (Diphenhydramine Hcl 25 Mg Capsule) 50 mg PO BEDTIME PRN PRN Reason: insomnia Hydroxyzine HCl (Hydroxyzine Hcl 25 Mg Tablet) 25 mg PO Q6H PRN PRN Reason: Anxiety [place] Carbonate ([place] Carbonate Er 300 Mg Tablet.Er) 300 mg PO BID [facility] Last Admin: 10/18/23 21:20 Dose: 300 mg Loperamide HCl (Loperamide Hcl 2 Mg Capsule) 2 mg PO Q6H PRN PRN Reason: Diarrhea Last Admin: 10/18/23 17:13 Dose: 2 mg Magnesium Hydroxide (Milk Of Magnesia 30 Ml Oral.Susp) 30 ml PO DAILY PRN PRN Reason: Constipation Melatonin (Melatonin 3 Mg Tablet) 6 mg PO BEDTIME [facility] Last Admin: 10/18/23 21:19 Dose: 6 mg Nicotine Polacrilex (Nicotine Polacrilex 2 Mg Gum) 4 mg BUCCAL Q2H PRN PRN Reason: Nicotine Cravings Oxcarbazepine (Oxcarbazepine 150 Mg Tablet) 150 mg PO TID [facility] Last Admin: 10/18/23 21:20 Dose: 150 mg Quetiapine Fumarate (Quetiapine Fumarate 25 Mg Tablet) 75 mg PO TID [facility] Last Admin: 10/18/23 21:18 Dose: 75 mg Trazodone HCl (Trazodone Hcl 50 Mg Tablet) 50 mg PO BEDTIME MRX1 PRN PRN Reason: Insomnia Vitamin A/Vitamin D (A And D Ointment 56.7 Gm Tube) 1 appl TOPICAL TID PRN; Protocol PRN Reason: skin irritation Last Admin: 10/18/23 22:19 Dose: 1 appl Allergies Allergies Allergy/AdvReac Type Severity Reaction Status Date / Time bupropion [From WELLBUTRIN] AdvReac Severe SI, Verified 10/15/23 15:04 urinary incontinence, severe agitation Assessment & Plan Assessment & Plan (1) Bipolar disorder with psychotic features: Status: Acute Code(s): F31.9 - Bipolar disorder, unspecified Plan 10/16: continue outpt regimen. add lithium 300 BID. 10/17: already appreciating improvement from lithium. chart reviewed, including CXR from last visit and medical plan for PNA. augmentin BID restarted for 7 days. cepacol lozenge Rxed. will check COVID. 10/18: no changes- is improving Reason for continued inpatient stay Substantial Risk for: rapid decompensation Time Spent With Patient Time: Total time managing care of this patient today ____ minutes.
[2023-10-19] MEDS: QUEtiapine Fumarate 25 MG TABLET 75 MG PO ×3 (09:59→20:58)
[2023-10-19] MEDS: Lithium Carbonate ER 300 MG TABLET.ER PO ×2 (10:00→20:57)
[2023-10-19] MEDS: OXcarbazepine 150 MG TABLET PO ×3 (10:00→20:58)
[2023-10-19] MEDS: Amoxicillin/Potassium Clav 875 MG TABLET PO ×2 (11:31→21:01)
[2023-10-19 20:00] VITALS: BP 108/66; PULSE 80; RESP 18; TEMP 36.9; O2SAT 98
[2023-10-19] MEDS: Melatonin 3 MG TABLET 6 MG PO (20:57)
[2023-10-19] MEDS: diazePAM 5 MG TABLET PO (20:58)
[2023-10-20 08:00] VITALS: BP 101/59; PULSE 67; RESP 16; TEMP 36.4; O2SAT 99
--- NOTE | 2023-10-20 08:11 | P.PNPSI_ITS ---
Subjective Subjective Date of Service: 10/20/23 Reason For Visit: Haley Medical Problems Affecting Mental Status: No Interim History: More organized, reports feeling more focused and not confused. sleep is good. Mood improved. Is concerned around level of engagement she had with a sabianist prior to admission and plans on cutting this off. Is questioning experiences she had prior to being hospitalized and whether they were real or not. Hopeful for discharge before Saturday10/23/2023, so she can resume classes that she started this ester. Medication Compliance: Yes Side effects from medications: No Attending Groups: Yes Review of Systems Acute medical concerns: No Review of Systems Review of Systems ROS unable to be obtained due to no communication from the patient Mental Status Exam Mental Status Exam Narrative: adequately dressed and groomed, cooperative, no PMA/PMR. speech nml amount, nml loudness and rate and tone. thoughts linear. no delusions or paranoia expressed. affect flexible, normo-intense, non-labile. mood improved. no SI/SIBI/HI/AVH expressed. Diagnostics Vital Signs (24Hr): Vital Signs - 24 hr 10/19/23 20:00 Temperature 98.5 F Pulse Rate 80 Respiratory Rate 18 Blood Pressure 108/66 Pulse Oximetry 98 Oxygen Delivery Method Room Air BMI result Body Mass Index 23.6 Labs 10/15/23 17:38 10/15/23 17:38 Labs: Laboratory Results - last 48 hr 10/18/23 14:38 COVID-19 (LEANDRO) Negative COVID-19 Clin Com See Note Medications Medications Current Medications Acetaminophen (Acetaminophen 325 Mg Tablet) 650 mg PO Q6H PRN PRN Reason: Headache/Pain Mild Scale (1-3) Last Admin: 10/18/23 11:26 Dose: 650 mg Al Hydroxide/Mg Hydroxide (Magnesium Hydrox/Alum Hydrox 30 Ml Oral.Susp) 30 ml PO Q6H PRN PRN Reason: Heartburn/Nausea Amoxicillin/Clavulanate Potassium (Amoxicillin/Potassium Clav 875 Mg Tablet) 875 mg PO Q12H [facility] Stop: 10/25/23 11:14 Last Admin: 10/19/23 21:01 Dose: 875 mg Benzocaine (Throat Lozenge, Medicated Lozenge) 1 lozenge MUCOUS MEM Q2H PRN PRN Reason: Sore Throat Last Admin: 10/18/23 11:26 Dose: 1 lozenge Diazepam (Diazepam 5 Mg Tablet) 5 mg PO BID [facility] Last Admin: 10/19/23 20:58 Dose: 5 mg Diphenhydramine HCl (Diphenhydramine Hcl 25 Mg Capsule) 50 mg PO BEDTIME PRN PRN Reason: insomnia Hydroxyzine HCl (Hydroxyzine Hcl 25 Mg Tablet) 25 mg PO Q6H PRN PRN Reason: Anxiety [place] Carbonate ([place] Carbonate Er 300 Mg Tablet.Er) 300 mg PO BID [facility] Last Admin: 10/19/23 20:57 Dose: 300 mg Loperamide HCl (Loperamide Hcl 2 Mg Capsule) 2 mg PO Q6H PRN PRN Reason: Diarrhea Last Admin: 10/18/23 17:13 Dose: 2 mg Magnesium Hydroxide (Milk Of Magnesia 30 Ml Oral.Susp) 30 ml PO DAILY PRN PRN Reason: Constipation Melatonin (Melatonin 3 Mg Tablet) 6 mg PO BEDTIME [facility] Last Admin: 10/19/23 20:57 Dose: 6 mg Nicotine Polacrilex (Nicotine Polacrilex 2 Mg Gum) 4 mg BUCCAL Q2H PRN PRN Reason: Nicotine Cravings Oxcarbazepine (Oxcarbazepine 150 Mg Tablet) 150 mg PO TID [facility] Last Admin: 10/19/23 20:58 Dose: 150 mg Quetiapine Fumarate (Quetiapine Fumarate 25 Mg Tablet) 75 mg PO TID [facility] Last Admin: 10/19/23 20:58 Dose: 75 mg Trazodone HCl (Trazodone Hcl 50 Mg Tablet) 50 mg PO BEDTIME MRX1 PRN PRN Reason: Insomnia Vitamin A/Vitamin D (A And D Ointment 56.7 Gm Tube) 1 appl TOPICAL TID PRN; Protocol PRN Reason: skin irritation Last Admin: 10/18/23 22:19 Dose: 1 appl Allergies Allergies Allergy/AdvReac Type Severity Reaction Status Date / Time bupropion [From WELLBUTRIN] AdvReac Severe SI, Verified 10/15/23 15:04 urinary incontinence, severe agitation Assessment & Plan Assessment & Plan (1) Bipolar disorder with psychotic features: Status: Acute Code(s): F31.9 - Bipolar disorder, unspecified Plan 10/16: continue outpt regimen. add lithium 300 BID. 10/17: already appreciating improvement from lithium. chart reviewed, including CXR from last visit and medical plan for PNA. augmentin BID restarted for 7 days. cepacol lozenge Rxed. will check COVID. 10/19: no changes- is improving Reason for continued inpatient stay Substantial Risk for: rapid decompensation Time Spent With Patient Time: Total time managing care of this patient today ____ minutes.
[2023-10-20] MEDS: OXcarbazepine 150 MG TABLET PO ×3 (09:22→20:33)
[2023-10-20] MEDS: QUEtiapine Fumarate 25 MG TABLET 75 MG PO ×3 (09:22→20:34)
[2023-10-20] MEDS: Lithium Carbonate ER 300 MG TABLET.ER PO ×2 (09:22→20:34)
[2023-10-20] MEDS: diazePAM 5 MG TABLET PO ×2 (09:22→20:33)
[2023-10-20] MEDS: Amoxicillin/Potassium Clav 875 MG TABLET PO (11:28)
[2023-10-20 20:00] VITALS: BP 124/73; PULSE 79; RESP 17; TEMP 36.7; O2SAT 98
[2023-10-20] MEDS: Melatonin 3 MG TABLET 6 MG PO (20:33)
[2023-10-20] MEDS: traZODone HCL 50 MG TABLET PO (20:34)
[2023-10-21] MEDS: Amoxicillin/Potassium Clav 875 MG TABLET PO ×3 (01:32→23:34)
[2023-10-21] MEDS: diphenhydrAMINE HCL 25 MG CAPSULE 50 MG PO ×2 (01:40→23:34)
[2023-10-21 08:05] VITALS: BP 114/72; PULSE 71; RESP 14; TEMP 36.4; O2SAT 98
[2023-10-21] MEDS: Lithium Carbonate ER 300 MG TABLET.ER PO (08:35)
[2023-10-21] MEDS: diazePAM 5 MG TABLET PO ×2 (08:35→21:26)
[2023-10-21] MEDS: OXcarbazepine 150 MG TABLET PO ×3 (08:36→21:26)
[2023-10-21] MEDS: QUEtiapine Fumarate 25 MG TABLET 75 MG PO ×3 (08:36→21:25)
--- NOTE | 2023-10-21 16:16 | HO.PSYCHPN ---
Subjective Subjective Date of Service: 10/21/23 Reason For Visit: Haley Interim History: asking for discharge today. if not today, tomorrow. amenable to have labs drawn tonight. will increase lithium dosing to 450 BID after lab draw in anticipation of low serum level. per staff, 3-day up 10/22. attending groups. cheerful, smiling, relaxed. no concerns. slept 8 hours. Mental Status Exam Mental Status Exam Narrative: adequately dressed and groomed, cooperative, no PMA/PMR. speech nml amount, nml loudness and rate and tone. thoughts linear and logical. no delusions or paranoia expressed. affect flexible, normo-intense, non-labile. mood improved. no SI/SIBI/HI/AVH expressed. Diagnostics Vital Signs (24Hr): Vital Signs - 24 hr 10/20/23 20:00 10/21/23 08:05 Temperature 98.0 F 97.6 F Pulse Rate 79 71 Respiratory Rate 17 14 Blood Pressure 124/73 114/72 Pulse Oximetry 98 98 Oxygen Delivery Method Room Air Room Air BMI result Body Mass Index 23.6 Labs 10/15/23 17:38 10/15/23 17:38 Medications Medications Current Medications Acetaminophen (Acetaminophen 325 Mg Tablet) 650 mg PO Q6H PRN PRN Reason: Headache/Pain Mild Scale (1-3) Last Admin: 10/18/23 11:26 Dose: 650 mg Al Hydroxide/Mg Hydroxide (Magnesium Hydrox/Alum Hydrox 30 Ml Oral.Susp) 30 ml PO Q6H PRN PRN Reason: Heartburn/Nausea Amoxicillin/Clavulanate Potassium (Amoxicillin/Potassium Clav 875 Mg Tablet) 875 mg PO Q12H [facility] Stop: 10/25/23 11:14 Last Admin: 10/21/23 11:21 Dose: 875 mg Benzocaine (Throat Lozenge, Medicated Lozenge) 1 lozenge MUCOUS MEM Q2H PRN PRN Reason: Sore Throat Last Admin: 10/18/23 11:26 Dose: 1 lozenge Diazepam (Diazepam 5 Mg Tablet) 5 mg PO BID [facility] Last Admin: 10/21/23 08:35 Dose: 5 mg Diphenhydramine HCl (Diphenhydramine Hcl 25 Mg Capsule) 50 mg PO BEDTIME PRN PRN Reason: insomnia Last Admin: 10/21/23 01:40 Dose: 50 mg Hydroxyzine HCl (Hydroxyzine Hcl 25 Mg Tablet) 25 mg PO Q6H PRN PRN Reason: Anxiety [place] Carbonate ([place] Carbonate Er 450 Mg Tablet.Er) 450 mg PO BID [facility] Loperamide HCl (Loperamide Hcl 2 Mg Capsule) 2 mg PO Q6H PRN PRN Reason: Diarrhea Last Admin: 10/18/23 17:13 Dose: 2 mg Magnesium Hydroxide (Milk Of Magnesia 30 Ml Oral.Susp) 30 ml PO DAILY PRN PRN Reason: Constipation Melatonin (Melatonin 3 Mg Tablet) 6 mg PO BEDTIME [facility] Last Admin: 10/20/23 20:33 Dose: 6 mg Nicotine Polacrilex (Nicotine Polacrilex 2 Mg Gum) 4 mg BUCCAL Q2H PRN PRN Reason: Nicotine Cravings Oxcarbazepine (Oxcarbazepine 150 Mg Tablet) 150 mg PO TID [facility] Last Admin: 10/21/23 14:31 Dose: 150 mg Quetiapine Fumarate (Quetiapine Fumarate 25 Mg Tablet) 75 mg PO TID [facility] Last Admin: 10/21/23 14:31 Dose: 75 mg Trazodone HCl (Trazodone Hcl 50 Mg Tablet) 50 mg PO BEDTIME MRX1 PRN PRN Reason: Insomnia Last Admin: 10/20/23 20:34 Dose: 50 mg Vitamin A/Vitamin D (A And D Ointment 56.7 Gm Tube) 1 appl TOPICAL TID PRN; Protocol PRN Reason: skin irritation Last Admin: 10/18/23 22:19 Dose: 1 appl Allergies Allergies Allergy/AdvReac Type Severity Reaction Status Date / Time bupropion [From WELLBUTRIN] AdvReac Severe SI, Verified 10/15/23 15:04 urinary incontinence, severe agitation Assessment & Plan Assessment & Plan (1) Bipolar disorder with psychotic features: Status: Acute Code(s): F31.9 - Bipolar disorder, unspecified Plan 10/16: continue outpt regimen. add lithium 300 BID. 10/17: already appreciating improvement from lithium. chart reviewed, including CXR from last visit and medical plan for PNA. augmentin BID restarted for 7 days. cepacol lozenge Rxed. will check COVID. 10/19: no changes- is improving 10/20: check labs tonight, increase lithium to 450 BID after blood draw in anticipation of sub-therapeutic level. planning for weds discharge, upon expiry of 3 day notice. Reason for continued inpatient stay Substantial Risk for: inability to function and rapid decompensation Time Spent With Patient Time: Total time managing care of this patient today __35__ minutes.
[2023-10-21 20:30] VITALS: BP 104/56; PULSE 82; RESP 17; TEMP 36.8; O2SAT 96
[2023-10-21 20:42] LABS: Anion Gap 11 (12-20); Blood Urea Nitrogen 13 mg/dL (9-16); Calcium 9.2 mg/dL (8.4-10.2); Carbon Dioxide 25 mmol/L (22-29); Chloride 108 mmol/L (96-108); Estimated Glomerular Filt Rate > 60; Glucose Random 84 mg/dL (60-115); Potassium 4.3 mmol/L (3.3-5.1); Sodium 140 mmol/L (135-145)
[2023-10-21] MEDS: Lithium Carbonate ER 450 MG TABLET.ER PO (21:26)
[2023-10-21] MEDS: Melatonin 3 MG TABLET 6 MG PO (21:26)
[2023-10-22] MEDS: hydrOXYzine HCL 25 MG TABLET PO (06:39)
[2023-10-22 08:00] VITALS: BP 103/61; PULSE 65; RESP 16; TEMP 36.5; O2SAT 99
[2023-10-22] MEDS: Lithium Carbonate ER 450 MG TABLET.ER PO ×2 (08:41→20:51)
[2023-10-22] MEDS: diazePAM 5 MG TABLET PO ×2 (08:42→20:51)
[2023-10-22] MEDS: QUEtiapine Fumarate 25 MG TABLET 75 MG PO ×3 (08:42→20:51)
[2023-10-22] MEDS: OXcarbazepine 150 MG TABLET PO ×3 (08:42→20:51)
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
[2023-10-22] MEDS: Amoxicillin/Potassium Clav 875 MG TABLET PO ×2 (12:14→22:29)
[2023-10-22 20:00] VITALS: BP 109/62; PULSE 89; RESP 16; TEMP 36.7; O2SAT 98
[2023-10-22] MEDS: Melatonin 3 MG TABLET 6 MG PO (20:51)
[2023-10-23] MEDS: Ondansetron ODT 4 MG TAB.RAPDIS TRANSLINGU (00:01)
--- NOTE | 2023-10-23 00:04 | PC.NURSE ---
Patient reporting nausea and a feeling as if she needs to vomit. An order for Zofran was received and medication given to patient.
[2023-10-23] MEDS: Magnesium Hydrox/Alum Hydrox 30 ML ORAL.SUSP PO (01:10)
[2023-10-23] MEDS: diphenhydrAMINE HCL 25 MG CAPSULE 50 MG PO (01:10)
[2023-10-23 07:46] VITALS: BP 89/51; PULSE 56; RESP 14; TEMP 36.9; O2SAT 97
[2023-10-23 09:10] VITALS: BP 98/58; PULSE 77
[2023-10-23] MEDS: diazePAM 5 MG TABLET PO (09:17)
[2023-10-23] MEDS: Lithium Carbonate ER 450 MG TABLET.ER PO (09:17)
[2023-10-23] MEDS: QUEtiapine Fumarate 25 MG TABLET 75 MG PO (09:18)
[2023-10-23] MEDS: OXcarbazepine 150 MG TABLET PO (09:18)
[2023-10-23] MEDS: Amoxicillin/Potassium Clav 875 MG TABLET PO (10:36)
== END 2023-10-23 10:41 | disposition home or self-care (01) | DRG 753 ==
LOC: HO.ED 18:47 → HO.PADLT16 10-16 12:38
PROVIDERS: Admitting Provider Psychiatry & Neurology Psychiatry; Emergency Provider Emergency Medicine; PCP Internal Medicine; Visit Provider Psychiatry & Neurology Psychiatry
DX: F31.9 Bipolar disorder, unspecified (principal); Z20.822 Contact with and (suspected) exposure to COVID-19; Z87.891 Personal history of nicotine dependence; Z79.899 Other long term (current) drug therapy
CPT/HCPCS: 36415; 80048; 80061; 80076; 80178; 80307; 82607; 82746; 83036; 83735; 84439; 84443; 85025; 87635; 99285; S9485

== ENCOUNTER → 2023-10-16 12:34 | Outpatient (BNV) | payer OTHER, SELFPAY | PROVIDERS: Admitting Provider Psychiatry & Neurology Psychiatry; Emergency Provider Emergency Medicine; PCP Internal Medicine; Visit Provider Psychiatry & Neurology Psychiatry | DX: F31.2 Bipolar disorder, current episode manic severe with psychotic features (principal) | CPT/HCPCS: 99231; 99232; 99233 ==

== ENCOUNTER 2023-11-12 19:04 | Inpatient (IN) | payer OTHER, SELFPAY ==
[2023-11-12 19:15] VITALS: BP 142/95; PULSE 88; RESP 20; TEMP 37; O2SAT 98; BMI 22.5
--- NOTE | 2023-11-12 19:18 | ED.GENADULT ---
HPI - General Adult General Chief complaint: Psychiatric Symptoms Stated complaint: crisis Time Seen by Provider: 11/12/23 19:34 Source: patient Mode of arrival: ambulatory Limitations: no limitations History of Present Illness ED Provider: bernabe MILLER narrative: Patient's history of bipolar disorder with psychotic features with anxiety came to the ER for having racing thoughts gets seeing stuck in his head wanted to have time out denies any SI or HI just wanted to relax for some time as she unable to manage that at home patient is accompanied with her mother low substance abuse Related Data Home Medications ?Medication ?Instructions ?Recorded ?Confirmed diazepam 5 mg tablet 5 mg PO BID 10/05/23 10/16/23 melatonin 3 mg tablet 6 mg PO BEDTIME 10/16/23 10/16/23 Previous Rx's ?Medication ?Instructions ?Recorded oxcarbazepine 150 mg tablet 150 mg PO TID #90 tabs 10/10/23 quetiapine 25 mg tablet 75 mg (3 x 25 mg) PO TID #180 tabs 10/10/23 trazodone 50 mg tablet 50 mg PO BEDTIME MRX1 PRN Insomnia 10/10/23 #30 tabs diphenhydramine HCl 25 mg capsule 50 mg (2 x 25 mg) PO BEDTIME PRN 10/22/23 (Banophen) insomnia 30 days #60 caps lithium carbonate 450 mg 450 mg PO BID 30 days #60 tabs 10/22/23 tablet,extended release Allergies Allergy/AdvReac Type Severity Reaction Status Date / Time bupropion [From WELLBUTRIN] AdvReac Severe SI, Verified 11/12/23 19:18 urinary incontinence, severe agitation Review of Systems Review of Systems: Yes all other systems are reviewed and are negative PMF Past Medical History Medical History Bipolar disorder with psychotic features Depression Anxiety Asthma Kidney stone Substance abuse Social History Social History Household Members: Family Household Members Other:: mom Housing: House Do you presently have visiting nurse or other home services: No Alcohol intake: never Patient Tobacco Use Status: Former Tobacco user Tobacco use type: Cigarette e-Cigarette/Vaping Use: Never Used Second Hand Smoke Exposure: No Advance Directives: No Advance Directives Information Provided: No service: No Sexual orientation: Don't Know Physical Exam ED Vital Signs: Vital Signs - 24 hr 11/12/23 19:15 Temperature 98.6 F Pulse Rate 88 Respiratory Rate 20 Blood Pressure 142/95 H Pulse Oximetry 98 Oxygen Delivery Method Room Air BMI result Body Mass Index 22.5 Appearance: Alert. Oriented X3. No acute distress. Anxious Eyes: PERRLA, No Nystagmus ENT: Pharynx normal. Oral Mucosa moist Neck: Normal inspection. Neck supple. CVS: Normal heart rate and rhythm. Pulses normal. Respiratory: No respiratory distress. Equal air entry bilateral, no wheezing/rales/rhonchi Abdomen: Soft and nontender. Bowel sounds are present, no mass palpable, no CVA tenderness Skin: Skin warm and dry. Normal skin color. Normal skin turgor. Extremities: No lower extremity edema. No calf tenderness psych feels tense denies any SI or HI no hallucination delusion Neuro: Oriented X 3. No motor deficit. No sensory deficit.No cerebellar signs , cranial nerves II-XII intact Course Course Course Narrative: RME, this is a rapid medical exam performed by Franklin Jimenez please refer to primary provider for complete H&P- 38 year old female presents for evaluation multiple complaints including anxiety, racing thoughts, and chest pain. Plan for medical clearance and care team evaluation. Medications Administered Discontinued Medications Generic Name Dose Route Start Last Admin Trade Name Freq PRN Reason Stop Dose Admin Diphenhydramine HCl 50 mg 11/12/23 21:49 11/12/23 21:51 Diphenhydramine Hcl 25 Mg Capsule PO 11/12/23 21:50 50 mg ONCE ONE Administration Medical Decision Making Medical Decision Making [facility] Narrative: Patient bipolar disorder any SI or HI evaluate by care team Discharge Plan Discharge Clinical Impression: Bipolar disorder with psychotic features Patient Disposition: Still a Patient Prescriptions: No Action diazepam 5 mg tablet 5 mg PO BID quetiapine 25 mg Tablet 75 mg PO TID Qty: 180 0RF trazodone 50 mg Tablet 50 mg PO BEDTIME MRX1 PRN (Reason: Insomnia) Qty: 30 0RF oxcarbazepine 150 mg tablet 150 mg PO TID Qty: 90 0RF melatonin 3 mg Tablet 6 mg PO BEDTIME lithium carbonate 450 mg Tablet Extended Release 450 mg PO BID 30 Days Qty: 60 0RF diphenhydramine HCl [Banophen] 25 mg Capsule 50 mg PO BEDTIME PRN (Reason: insomnia) 30 Days Qty: 60 0RF Interventions: Basom-Suicide Risk Severity Scale Last Done: 11/12/23 20:47 Print Language: [place]olan
--- NOTE | 2023-11-12 19:52 | PC.NURSE ---
search conducted by t/w patient settled into room and provided drinks, no s/sx of sib, patient didnt want to complete supplementary questions at this time.
--- NOTE | 2023-11-12 19:53 | PC.NURSE ---
patient declining labs presently
--- NOTE | 2023-11-12 21:49 | PC.NURSE ---
late entry- patient declined EKG
[2023-11-12] MEDS: diphenhydrAMINE HCL 25 MG CAPSULE 50 MG PO (21:51)
--- NOTE | 2023-11-13 00:37 | MHC.EDTECH ---
pt continues to refuse all labs and ekg.
--- NOTE | 2023-11-13 04:07 | PC.NURSE ---
periodic tearfulness, broken sleep
[2023-11-13] MEDS: QUEtiapine Fumarate 50 MG TABLET PO (04:36)
[2023-11-13 08:52] VITALS: BP 136/85; PULSE 98; RESP 16; TEMP 36.6; O2SAT 99
--- NOTE | 2023-11-13 08:53 | MHC.EDTECH ---
Vitals was taken but the patient refused the EKG for now. RN (BOB) aware
--- NOTE | 2023-11-13 10:07 | PHA.MEDREC ---
Pharmacy Consult ? Medication Reconciliation Pharmacy has completed the medication reconciliation. Med rec done by nursing, matches claim history
--- NOTE | 2023-11-13 12:53 | MHC.CARE ---
Pt will be an inpatient psychiatric bedsearch.
[2023-11-13 16:15] VITALS: BP 160/100; PULSE 106; RESP 18; TEMP 37; O2SAT 99; BMI 22.4
--- NOTE | 2023-11-13 19:11 | PC.ADMIT ---
Pt is a 38 y/o female admitted to on a 12B at 1602 from [facility] after self-presenting with racing thoughts, and getting ?stuck? in her head. Pt has a history of Bipolar D/O. Pt is known to the CARE team with recent psych admissions on 10/04 and 11/04 at [facility] In the ED, pt refused to participate in assessments, was intermittently tearful, paranoid, and appeared to respond to internal stimuli. In the ED collateral was collected from pt?s mother, who reported that pt had decompensated and that approximately one week ago pt began to respond to AH and was observed talking to people that were not there. In the ED, pt refused all scheduled medications, refused EKG, and refused laboratory testing. On arrival to the unit, pt was very hesitant but cooperative with safety/skin check, which was performed in the treatment room by and Magdalena THOMAS. Pt was cooperative with VS and weight at that time as well. BP elevated 160/100. Pt highly anxious and apprehensive during the process. After the safety/skin check was completed, pt required much encouragement to exit the treatment room as pt did not feel safe leaving the exam table. Pt was assisted to her room with much encouragement. Pt declined to participate in the admission process, and stated she would not sign any paperwork. Pt also refused to change her ED issued ID band to a issued ID band. Pt observed whispering to herself, counting, and stating ?This is not real. I?m fine, this isn?t real.? Pt refused scheduled Ativan, and stated ?No, No, No, I?m not taking that. I?m not taking that.? Pt also refused to allow a BP recheck. Due to pt?s refusal, admission was completed through crisis assessment and pt?s presentation. No releases signed, and pt declined nicotine use. Pt placed on 15 minute checks.
[2023-11-14] MEDS: LORazepam 1 MG TABLET PO ×3 (08:39→21:59)
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
[2023-11-14] MEDS: OXcarbazepine 150 MG TABLET PO ×2 (14:59→21:57)
[2023-11-14] MEDS: QUEtiapine Fumarate 100 MG TABLET PO (14:59)
--- NOTE | 2023-11-14 15:08 | PC.NURSE ---
Pt took her scheduled afternoon meds after much reluctance. She came out to the nurses station to request them after initially refusing them from TW. Continues to appear internally preoccupied and responding to internal stimulation.
[2023-11-14 21:50] VITALS: BP 120/80; PULSE 109; TEMP 36.4
[2023-11-14] MEDS: diazePAM 5 MG TABLET PO (21:58)
[2023-11-14] MEDS: Lithium Carbonate ER 450 MG TABLET.ER 900 MG PO (21:58)
--- NOTE | 2023-11-15 09:09 | P.PNPSI_ITS ---
Subjective Subjective Date of Service: 11/15/23 Reason For Visit: Haley Interim History: Met with patient; discussed with team Patient has started taking some medications last night, took half her dose of prescribed lithium. Talked more but only wanted to talk in the hallway. Pt still w/ thought blocking; with tears, says i'm stuck... She says she wants help talking with her mother...but then suddenly stops talking and walks away. Later mother present who tries to encourage pt to stay on unit longer. Pt refuses to sign in; considers taking full [place] dose but wants seroquel, trileptal lowered. Won't discuss meds further Diagnostics Vital Signs (24Hr): Vital Signs - 24 hr 11/14/23 21:50 Temperature 97.6 F Pulse Rate 109 H Blood Pressure 120/80 BMI result Body Mass Index 22.4 Medications Medications Current Medications Acetaminophen (Acetaminophen 325 Mg Tablet) 650 mg PO Q6H PRN PRN Reason: Headache/Pain Mild Scale (1-3) Al Hydroxide/Mg Hydroxide (Magnesium Hydrox/Alum Hydrox 30 Ml Oral.Susp) 30 ml PO Q6H PRN PRN Reason: Heartburn/Nausea Diazepam (Diazepam 5 Mg Tablet) 5 mg PO BID [facility] Last Admin: 11/14/23 21:58 Dose: 5 mg Diphenhydramine HCl (Diphenhydramine Hcl 25 Mg Capsule) 50 mg PO BEDTIME PRN PRN Reason: insomnia Hydroxyzine HCl (Hydroxyzine Hcl 25 Mg Tablet) 25 mg PO Q6H PRN PRN Reason: Anxiety [place] Carbonate ([place] Carbonate Er 450 Mg Tablet.Er) 900 mg PO BEDTIME [facility] Last Admin: 11/14/23 21:58 Dose: 450 mg Lorazepam (Lorazepam 1 Mg Tablet) 1 mg PO TID [facility] Last Admin: 11/14/23 21:59 Dose: 1 mg Magnesium Hydroxide (Milk Of Magnesia 30 Ml Oral.Susp) 30 ml PO DAILY PRN PRN Reason: Constipation Nicotine (Nicotine 21 Mg Patch.Td24) 21 mg TRANSDERMA DAILY PRN PRN Reason: smoking cessation Nicotine Polacrilex (Nicotine Polacrilex 2 Mg Gum) 4 mg BUCCAL Q2H PRN PRN Reason: Nicotine Cravings Olanzapine (Olanzapine 5 Mg Tablet) 5 mg PO TID PRN PRN Reason: agitation Oxcarbazepine (Oxcarbazepine 150 Mg Tablet) 150 mg PO TID [facility] Last Admin: 11/14/23 21:57 Dose: 150 mg Quetiapine Fumarate (Quetiapine Fumarate 100 Mg Tablet) 100 mg PO TID [facility] Last Admin: 11/14/23 23:05 Dose: Not Given Trazodone HCl (Trazodone Hcl 50 Mg Tablet) 50 mg PO BEDTIME MRX1 PRN PRN Reason: Insomnia Allergies Allergies Allergy/AdvReac Type Severity Reaction Status Date / Time bupropion [From WELLBUTRIN] AdvReac Severe SI, Verified 11/12/23 19:18 urinary incontinence, severe agitation Assessment & Plan Assessment & Plan (1) Bipolar disorder with psychotic features: Status: Acute Code(s): F31.9 - Bipolar disorder, unspecified Plan Patient is a 38-year-old female with history of bipolar disorder, recently discharged from a few weeks ago for manic episode, who presents with disorganized behavior, racing thoughts, responding to AH having decompensated about 1 week ago in the face of stopping medication. Patient disorganized and unable to engage in admission discussion. Initially patient just stood shaking her head no but would not speak to health technical writer; refused medications. Later patient standing, looking around her room or out the window and both talking and responding to AH. Patient said can we talk later and interview temporarily suspended; health technical writer came back later and patient again standing against the wall, looking around confused; would not answer questions and only said something about [place] and then would not talk. Casino Operations Supervisor again offered medication, including lithium reminding her that she felt much better the last time she was here and took lithium. Casino Operations Supervisor explained that it would be ordered and it was her choice to take it or not. Patient did not respond. She has refused labs, EKG. Patient denied SI/HI to ED staff. Formulation/clinical reasoning: Patient has history of bipolar disorder. Patient is currently unable to engage in admission interview as she is psychotic, significantly internally preoccupied, self dialogue in responding to AH, possibly VH. Patient has some catatonic features and mutism seems to come and go. Casino Operations Supervisor ordered Ativan 1 mg t.i.d. to see if can alleviate some of these symptoms;discussed case with previous attending who said patient did improve on lithium so will continue now. Patient refuses to sign involuntarily; patient is currently manic/psychotic on unable to care for herself in the community and requires inpatient admission. Hospital Course: 11/14 Patient has started taking some medications last night, took half her dose of prescribed lithium. Talked more; still somewhat disorganized in speech/behavior but now with more lucid moments; still w/ thought blocking; with tears, says i'm stuck... suddenly stops talking and walks away. Later mother present who tries to encourage pt to stay on unit longer. Pt refuses to sign in; considers taking full [place] dose but wants seroquel, trileptal lowered. Won't discuss meds further Plan: Twelve B Q 15 minute checks Continue lithium ER 900 mg; will make at bedtime to help asleep Ativan 1 mg t.i.d. for relief from anxiety, mutism -Continue following medication started in ED: Lower to Trileptal 150 mg BID (down from tid). Continue Valium 5 mg b.i.d. lower to Seroquel 50mg t.i.d. Patient has refused lab work, EKG Will seek collateral Patient educated on: diagnosis and medication risk/benefits Informed Consent: understands, does not understand and further education needed Reason for continued inpatient stay Substantial Risk for: inability to function Time Spent With Patient Time: Total time managing care of this patient today ____ minutes.
[2023-11-15 10:07] VITALS: BP 113/79; PULSE 95; TEMP 36.4; O2SAT 99
--- NOTE | 2023-11-15 13:49 | PC.NURSE ---
On 11/15/2023 patient signed CV, accepted by Dr. Santana.
[2023-11-15 20:00] VITALS: BP 126/81; PULSE 136; RESP 20; TEMP 36.5; O2SAT 97
[2023-11-15] MEDS: QUEtiapine Fumarate 50 MG TABLET PO (21:42)
[2023-11-15] MEDS: Lithium Carbonate ER 450 MG TABLET.ER 900 MG PO (21:42)
[2023-11-15] MEDS: diazePAM 5 MG TABLET PO (21:42)
[2023-11-16 08:00] VITALS: BP 112/74; PULSE 89; RESP 18; TEMP 36.9; O2SAT 97
--- NOTE | 2023-11-16 09:11 | HO.PSYCHPN ---
Subjective Subjective Date of Service: 11/16/23 Reason For Visit: Haley Interim History: Met With patient; discussed with team Patient is doing a little better but remains struggling to get her sentence out, have a conversation without either becoming tearful or overly anxious. She wants to talk about medications but does not want to unless her mother's here, worried she will not understand. Agrees that lithium is helpful but does not want to be on Trileptal and said Seroquel seems unnecessary. Tower Climber asked what is patient's reasoning as to why she ends up coming back to the hospital; she said lack of sleep, diet... But then seemed to agree that perhaps being off medications was related; off medication she gets loopy thoughts at back on medications she is able to think more clearly. Mental Status Exam Mental Status Exam Narrative: Pt is alert and oriented to self; behavior is disorganized, guarded, intermittently mute; patient is not in distress; dressed in casual attire with hair neatly pulled back, adequate hygiene; mood is described as anxious and affect congruent, constricted; eye contact limited; Speech is more spontaneous but remains with thought blocking and intermittently mute;: not pressured; psychomotor agitation present though self-contained; thought process still with thought blocking but can be goal directed; Thought content is on discharge; denied SI/HI. AH intermittently present Patients insight and judgment impaired but improving Diagnostics Vital Signs (24Hr): Vital Signs - 24 hr 11/15/23 10:07 11/15/23 20:00 11/16/23 08:00 Temperature 97.6 F 97.7 F 98.4 F Pulse Rate 95 136 H 89 Respiratory Rate 20 18 Blood Pressure 113/79 126/81 112/74 Pulse Oximetry 99 97 97 Oxygen Delivery Method Room Air Room Air Room Air BMI result Body Mass Index 22.4 Medications Medications Current Medications Acetaminophen (Acetaminophen 325 Mg Tablet) 650 mg PO Q6H PRN PRN Reason: Headache/Pain Mild Scale (1-3) Al Hydroxide/Mg Hydroxide (Magnesium Hydrox/Alum Hydrox 30 Ml Oral.Susp) 30 ml PO Q6H PRN PRN Reason: Heartburn/Nausea Diazepam (Diazepam 5 Mg Tablet) 5 mg PO BID [facility] Last Admin: 11/16/23 08:49 Dose: Not Given Diphenhydramine HCl (Diphenhydramine Hcl 25 Mg Capsule) 50 mg PO BEDTIME PRN PRN Reason: insomnia Hydroxyzine HCl (Hydroxyzine Hcl 25 Mg Tablet) 25 mg PO Q6H PRN PRN Reason: Anxiety [place] Carbonate ([place] Carbonate Er 450 Mg Tablet.Er) 900 mg PO BEDTIME [facility] Last Admin: 11/15/23 21:42 Dose: 900 mg Lorazepam (Lorazepam 1 Mg Tablet) 1 mg PO TID [facility] Last Admin: 11/16/23 08:49 Dose: Not Given Magnesium Hydroxide (Milk Of Magnesia 30 Ml Oral.Susp) 30 ml PO DAILY PRN PRN Reason: Constipation Nicotine (Nicotine 21 Mg Patch.Td24) 21 mg TRANSDERMA DAILY PRN PRN Reason: smoking cessation Nicotine Polacrilex (Nicotine Polacrilex 2 Mg Gum) 4 mg BUCCAL Q2H PRN PRN Reason: Nicotine Cravings Olanzapine (Olanzapine 5 Mg Tablet) 5 mg PO TID PRN PRN Reason: agitation Oxcarbazepine (Oxcarbazepine 150 Mg Tablet) 150 mg PO BID [facility] Last Admin: 11/16/23 08:49 Dose: Not Given Quetiapine Fumarate (Quetiapine Fumarate 50 Mg Tablet) 50 mg PO TID [facility] Last Admin: 11/16/23 08:49 Dose: Not Given Trazodone HCl (Trazodone Hcl 50 Mg Tablet) 50 mg PO BEDTIME MRX1 PRN PRN Reason: Insomnia Allergies Allergies Allergy/AdvReac Type Severity Reaction Status Date / Time bupropion [From WELLBUTRIN] AdvReac Severe SI, Verified 11/12/23 19:18 urinary incontinence, severe agitation Assessment & Plan Assessment & Plan (1) Bipolar disorder with psychotic features: Status: Acute Code(s): F31.9 - Bipolar disorder, unspecified Plan Patient is a 38-year-old female with history of bipolar disorder, recently discharged from a few weeks ago for manic episode, who presents with disorganized behavior, racing thoughts, responding to having decompensated about 1 week ago in the face of stopping medication. Patient disorganized and unable to engage in admission discussion. Initially patient just stood shaking her head no but would not speak to television script writer; refused medications. Later patient standing, looking around her room or out the window and both talking and responding to . Patient said can we talk later and interview temporarily suspended; television script writer came back later and patient again standing against the wall, looking around confused; would not answer questions and only said something about [place] and then would not talk. Tower Climber again offered medication, including lithium reminding her that she felt much better the last time she was here and took lithium. Tower Climber explained that it would be ordered and it was her choice to take it or not. Patient did not respond. She has refused labs, EKG. Patient denied SI/HI to ED staff. Formulation/clinical reasoning: Patient has history of bipolar disorder. Patient is currently unable to engage in admission interview as she is psychotic, significantly internally preoccupied, self dialogue in responding to AH, possibly VH. Patient has some catatonic features and mutism seems to come and go. Tower Climber ordered Ativan 1 mg t.i.d. to see if can alleviate some of these symptoms;discussed case with previous attending who said patient did improve on lithium so will continue now. Patient refuses to sign involuntarily; patient is currently manic/psychotic on unable to care for herself in the community and requires inpatient admission. Hospital Course: 11/14 Patient has started taking some medications last night, took half her dose of prescribed lithium. Talked more; still somewhat disorganized in speech/behavior but now with more lucid moments; still w/ thought blocking; with tears, says i'm stuck... suddenly stops talking and walks away. Later mother present who tries to encourage pt to stay on unit longer. Pt refuses to sign in; considers taking full [place] dose but wants seroquel, trileptal lowered. Won't discuss meds further 11/15 doing a little better but still disorganized in both speech and behavior; remains with some AH and still feels confused. Some insight but limited. She will continue with lithium at current dose however wants Seroquel to made p.r.n. discontinue Trileptal -television script writer would like to add Vraylar to help both with mood stabilization, depression at ; patient remains very ambivalent Plan: Twelve B Q 15 minute checks Continue lithium ER 900 mg; will make at bedtime to help asleep Taper off Ativan -Continue following medication started in ED: Discontinue Trilepta; patient does not want Continue Valium 5 mg b.i.d. Change to Seroquel 50mg p.r.n.; patient does not want scheduled Patient has refused lab work, EKG Will seek collateral Patient educated on: diagnosis and medication risk/benefits Informed Consent: understands, does not understand and further education needed Reason for continued inpatient stay Substantial Risk for: rapid decompensation Time Spent With Patient Time: Total time managing care of this patient today ____ minutes.
[2023-11-16 20:00] VITALS: BP 142/93; PULSE 98; RESP 18; TEMP 36.4; O2SAT 97
[2023-11-16] MEDS: diazePAM 5 MG TABLET PO (21:03)
[2023-11-16] MEDS: Lithium Carbonate ER 450 MG TABLET.ER 900 MG PO (21:03)
[2023-11-16] MEDS: QUEtiapine Fumarate 50 MG TABLET PO (22:33)
[2023-11-17 08:00] VITALS: BP 123/85; PULSE 76; RESP 16; TEMP 36.6; O2SAT 100
--- NOTE | 2023-11-17 10:16 | P.PNPSI_ITS ---
Subjective Subjective Date of Service: 11/17/23 Reason For Visit: Haley Interim History: Met with patient; discussed with team Patient doing a little better today. Still has auditory hallucinations which she reports more manageable but still say deprecating things; still guarded and a little suspicious and asked several times what underwriter mortgage loan was writing down (which underwriter mortgage loan showed). Patient said her plan to stay stable is to pray and eat a good diet. On further discussion patient agreed that medications are probably necessary to remain stable. Patient was glad to be done with scheduled Seroquel and Trileptal. [employer] Department Manager said it is possible lithium could be effective as monotherapy but because patient continues to have auditory hallucinations, it might be necessary to add antipsychotic. Patient was hesitant to be on 2 medications but agreed it might be necessary. She very much does not want to stay on the unit however, agreed that she needs further treatment to make sure she is able to become and remain stable and thus said she was willing to the unit longer and signed a CV. Mental Status Exam Mental Status Exam Narrative: Pt is alert and oriented to self; behavior is more organized, more cooperative and although still guarded, less so and more able and willing to engage; patient is not in distress; dressed in casual attire with hair neatly pulled back, adeq uate hygiene; mood is described as anxious and affect congruent, constricted; eye contact improving and adequate; Speech is more spontaneous, some thought blocking remains but improving; no psychomotor agitation; thought process goal directed and linear and more logical, though still with thought blocking; Thought content is on discharge but also on treatment; denied SI/HI. AH intermittently present Patients insight and judgment impaired but improving Diagnostics Vital Signs (24Hr): Vital Signs - 24 hr 11/16/23 20:00 11/17/23 08:00 Temperature 97.5 F 97.9 F Pulse Rate 98 76 Respiratory Rate 18 16 Blood Pressure 142/93 H 123/85 Pulse Oximetry 97 100 Oxygen Delivery Method Room Air Room Air BMI result Body Mass Index 22.4 Medications Medications Current Medications Acetaminophen (Acetaminophen 325 Mg Tablet) 650 mg PO Q6H PRN PRN Reason: Headache/Pain Mild Scale (1-3) Al Hydroxide/Mg Hydroxide (Magnesium Hydrox/Alum Hydrox 30 Ml Oral.Susp) 30 ml PO Q6H PRN PRN Reason: Heartburn/Nausea Diazepam (Diazepam 5 Mg Tablet) 5 mg PO BID RORY Last Admin: 11/17/23 08:27 Dose: Not Given Diphenhydramine HCl (Diphenhydramine Hcl 25 Mg Capsule) 50 mg PO BEDTIME PRN PRN Reason: insomnia Hydroxyzine HCl (Hydroxyzine Hcl 25 Mg Tablet) 25 mg PO Q6H PRN PRN Reason: Anxiety [place] Carbonate ([place] Carbonate Er 450 Mg Tablet.Er) 900 mg PO BEDTIME [facility] Last Admin: 11/16/23 21:03 Dose: 900 mg Magnesium Hydroxide (Milk Of Magnesia 30 Ml Oral.Susp) 30 ml PO DAILY PRN PRN Reason: Constipation Nicotine (Nicotine 21 Mg Patch.Td24) 21 mg TRANSDERMA DAILY PRN PRN Reason: smoking cessation Nicotine Polacrilex (Nicotine Polacrilex 2 Mg Gum) 4 mg BUCCAL Q2H PRN PRN Reason: Nicotine Cravings Olanzapine (Olanzapine 5 Mg Tablet) 5 mg PO TID PRN PRN Reason: agitation Quetiapine Fumarate (Quetiapine Fumarate 50 Mg Tablet) 50 mg PO TID PRN PRN Reason: anxiety Last Admin: 11/16/23 22:33 Dose: 50 mg Trazodone HCl (Trazodone Hcl 50 Mg Tablet) 50 mg PO BEDTIME MRX1 PRN PRN Reason: Insomnia Allergies Allergies Allergy/AdvReac Type Severity Reaction Status Date / Time bupropion [From WELLBUTRIN] AdvReac Severe SI, Verified 11/12/23 19:18 urinary incontinence, severe agitation Assessment & Plan Assessment & Plan (1) Bipolar disorder with psychotic features: Status: Acute Code(s): F31.9 - Bipolar disorder, unspecified Plan Patient is a 38-year-old female with history of bipolar disorder, recently discharged from a few weeks ago for manic episode, who presents with disorganized behavior, racing thoughts, responding to having decompensated about 1 week ago in the face of stopping medication. Patient disorganized and unable to engage in admission discussion. Initially patient just stood shaking her head no but would not speak to underwriter mortgage loan; refused medications. Later patient standing, looking around her room or out the window and both talking and responding to . Patient said can we talk later and interview temporarily suspended; underwriter mortgage loan came back later and patient again standing against the wall, looking around confused; would not answer questions and only said something about [place] and then would not talk. [employer] Department Manager again offered medication, including lithium reminding her that she felt much better the last time she was here and took lithium. Export Traffic Department Manager explained that it would be ordered and it was her choice to take it or not. Patient did not respond. She has refused labs, EKG. Patient denied SI/HI to ED staff. Formulation/clinical reasoning: Patient has history of bipolar disorder. Patient is currently unable to engage in admission interview as she is psychotic, significantly internally preoccupied, self dialogue in responding to AH, possibly VH. Patient has some catatonic features and mutism seems to come and go. [employer] Department Manager ordered Ativan 1 mg t.i.d. to see if can alleviate some of these symptoms;discussed case with previous attending who said patient did improve on lithium so will continue now. Patient refuses to sign involuntarily; patient is currently manic/psychotic on unable to care for herself in the community and requires inpatient admission. Hospital Course: 11/14 Patient has started taking some medications last night, took half her dose of prescribed lithium. Talked more; still somewhat disorganized in speech/behavior but now with more lucid moments; still w/ thought blocking; with tears, says i'm stuck... suddenly stops talking and walks away. Later mother present who tries to encourage pt to stay on unit longer. Pt refuses to sign in; considers taking full [place] dose but wants seroquel, trileptal lowered. Won't discuss meds further 11/15 doing a little better but still disorganized in both speech and behavior; remains with some AH and still feels confused. Some insight but limited. She will continue with lithium at current dose however wants Seroquel to made p.r.n. discontinue Trileptal -underwriter mortgage loan would like to add Vraylar to help both with mood stabilization, depression at ; patient remains very ambivalent 11/16 Patient doing a little better today. Still has auditory hallucinations which she reports more manageable but still say deprecating things. Patient said her plan to stay stable is to pray and eat a good diet. On further discussion patient agreed that medications are probably necessary to remain stable. Patient was glad to be done with scheduled Seroquel and Trileptal. [employer] Manager said it is possible lithium could be effective as monotherapy but because patient continues to have auditory hallucinations, it might be necessary to add antipsychotic. Patient was hesitant to be on 2 medications but agreed it might be necessary. She very much does not want to stay on the unit however, agreed that she needs further treatment to make sure she is able to become and remain stable and thus said she was willing to the unit longer and signed a CV (later in the afternoon she signed a 3 day notice which she told underwriter mortgage loan was the plan beforehand; she agrees she may need to retract this as well but prefers to have it in place) Plan: 3 day Q 15 minute checks Continue lithium ER 900 mg; will make at bedtime to help asleep Change to Valium 5 mg b.i.d. p.r.n. Change to Seroquel 50mg p.r.n.; patient does not want scheduled Discontinue Trilepta; patient does not want Tapered off Ativan Patient has refused lab work, EKG Will seek collateral Patient educated on: diagnosis and medication risk/benefits Informed Consent: understands, does not understand and further education needed Reason for continued inpatient stay Substantial Risk for: rapid decompensation Time Spent With Patient Time: Total time managing care of this patient today ____ minutes.
[2023-11-17] MEDS: diazePAM 5 MG TABLET PO ×2 (12:27→21:15)
--- NOTE | 2023-11-17 13:27 | PC.NURSE ---
Pt signed a 3 day notice today 11/16 to be up on 11/19.
[2023-11-17] MEDS: QUEtiapine Fumarate 50 MG TABLET PO ×2 (15:47→21:15)
[2023-11-17 20:00] VITALS: BP 123/77; PULSE 79; RESP 14; TEMP 36.6; O2SAT 99
[2023-11-17] MEDS: Lithium Carbonate ER 450 MG TABLET.ER 900 MG PO (20:02)
[2023-11-17] MEDS: diphenhydrAMINE HCL 25 MG CAPSULE 50 MG PO (20:02)
[2023-11-18 08:00] VITALS: BP 111/59; PULSE 79; RESP 16; TEMP 36.8; O2SAT 99
[2023-11-18] MEDS: diazePAM 5 MG TABLET PO ×2 (09:07→19:14)
--- NOTE | 2023-11-18 09:45 | P.PNPSI_ITS ---
Subjective Subjective Date of Service: 11/18/23 Reason For Visit: Haley Interim History: Met with patient; discussed with team Patient doing much better and able to have much more of a given take conversation. Still with thought blocking and AH but feels much more able to ignore it. Still a little guarded as well but talking more freely and open to discussing diagnosis of bipolar disorder. She says she feels very different this time around, much more accepting of her need for medication and says she will continue taking it. Development Eng again discussed hope that lithium will be sufficient but that other medications exist if AH remains. At this time patient is too anxious to start another medication and feels that lithium is enough for now. Patient opened up a little about need for trauma therapy. Mental Status Exam Mental Status Exam Narrative: Pt is alert and oriented to self; behavior is overall more organized; she is cooperative and though still a little guarded, much less so; patient is not in distress; dressed in casual attire with hair neatly pulled back, adequate hygiene; mood is described as good... and affect congruent, still constricted but less so and more naturally expressive; eye contact adequate; Speech is spontaneous, with normal rate volume and prosody; still, some thought blocking remains; no psychomotor agitation; thought process goal directed and linear and logical; Thought content is on dealing with symptoms, discharge, treatment; denied SI/HI. AH intermittently present Patients insight and judgment impaired but much improved Diagnostics Vital Signs (24Hr): Vital Signs - 24 hr 11/17/23 20:00 11/18/23 08:00 Temperature 98 F 98.2 F Pulse Rate 79 79 Respiratory Rate 14 16 Blood Pressure 123/77 111/59 L Pulse Oximetry 99 99 Oxygen Delivery Method Room Air BMI result Body Mass Index 22.4 Medications Medications Current Medications Acetaminophen (Acetaminophen 325 Mg Tablet) 650 mg PO Q6H PRN PRN Reason: Headache/Pain Mild Scale (1-3) Al Hydroxide/Mg Hydroxide (Magnesium Hydrox/Alum Hydrox 30 Ml Oral.Susp) 30 ml PO Q6H PRN PRN Reason: Heartburn/Nausea Diazepam (Diazepam 5 Mg Tablet) 5 mg PO BID PRN PRN Reason: anxiety/agitation Last Admin: 11/18/23 09:07 Dose: 5 mg Diphenhydramine HCl (Diphenhydramine Hcl 25 Mg Capsule) 50 mg PO BEDTIME PRN PRN Reason: insomnia Last Admin: 11/17/23 20:02 Dose: 50 mg Hydroxyzine HCl (Hydroxyzine Hcl 25 Mg Tablet) 25 mg PO Q6H PRN PRN Reason: Anxiety [place] Carbonate ([place] Carbonate Er 450 Mg Tablet.Er) 900 mg PO BEDTIME RORY Last Admin: 11/17/23 20:02 Dose: 900 mg Magnesium Hydroxide (Milk Of Magnesia 30 Ml Oral.Susp) 30 ml PO DAILY PRN PRN Reason: Constipation Nicotine (Nicotine 21 Mg Patch.Td24) 21 mg TRANSDERMA DAILY PRN PRN Reason: smoking cessation Nicotine Polacrilex (Nicotine Polacrilex 2 Mg Gum) 4 mg BUCCAL Q2H PRN PRN Reason: Nicotine Cravings Olanzapine (Olanzapine 5 Mg Tablet) 5 mg PO TID PRN PRN Reason: agitation Quetiapine Fumarate (Quetiapine Fumarate 50 Mg Tablet) 50 mg PO TID PRN PRN Reason: anxiety Last Admin: 11/17/23 21:15 Dose: 50 mg Trazodone HCl (Trazodone Hcl 50 Mg Tablet) 50 mg PO BEDTIME MRX1 PRN PRN Reason: Insomnia Allergies Allergies Allergy/AdvReac Type Severity Reaction Status Date / Time bupropion [From WELLBUTRIN] AdvReac Severe SI, Verified 11/12/23 19:18 urinary incontinence, severe agitation Assessment & Plan Assessment & Plan (1) Bipolar disorder with psychotic features: Status: Acute Code(s): F31.9 - Bipolar disorder, unspecified Plan Patient is a 38-year-old female with history of bipolar disorder, recently discharged from a few weeks ago for manic episode, who presents with disorganized behavior, racing thoughts, responding to having decompensated about 1 week ago in the face of stopping medication. Patient disorganized and unable to engage in admission discussion. Initially patient just stood shaking her head no but would not speak to automotive service writer; refused medications. Later patient standing, looking around her room or out the window and both talking and responding to . Patient said can we talk later and interview temporarily suspended; automotive service writer came back later and patient again standing against the wall, looking around confused; would not answer questions and only said something about [place] and then would not talk. Development Eng again offered medication, including lithium reminding her that she felt much better the last time she was here and took lithium. Development Eng explained that it would be ordered and it was her choice to take it or not. Patient did not respond. She has refused labs, EKG. Patient denied SI/HI to ED staff. Formulation/clinical reasoning: Patient has history of bipolar disorder. Patient is currently unable to engage in admission interview as she is psychotic, significantly internally preoccupied, self dialogue in responding to AH, possibly VH. Patient has some catatonic features and mutism seems to come and go. Development Eng ordered Ativan 1 mg t.i.d. to see if can alleviate some of these symptoms;discussed case with previous attending who said patient did improve on lithium so will continue now. Patient refuses to sign involuntarily; patient is currently manic/psychotic on unable to care for herself in the community and requires inpatient admission. Hospital Course: 11/14 Patient has started taking some medications last night, took half her dose of prescribed lithium. Talked more; still somewhat disorganized in speech/behavior but now with more lucid moments; still w/ thought blocking; with tears, says i'm stuck... suddenly stops talking and walks away. Later mother present who tries to encourage pt to stay on unit longer. Pt refuses to sign in; considers taking full [place] dose but wants seroquel, trileptal lowered. Won't discuss meds further 11/15 doing a little better but still disorganized in both speech and behavior; remains with some AH and still feels confused. Some insight but limited. She will continue with lithium at current dose however wants Seroquel to made p.r.n. discontinue Trileptal -automotive service writer would like to add Vraylar to help both with mood stabilization, depression at ; patient remains very ambivalent 11/16 Patient doing a little better today. Still has auditory hallucinations which she reports more manageable but still say deprecating things. Patient said her plan to stay stable is to pray and eat a good diet. On further discussion patient agreed that medications are probably necessary to remain stable. Patient was glad to be done with scheduled Seroquel and Trileptal. Development Eng said it is possible lithium could be effective as monotherapy but because patient continues to have auditory hallucinations, it might be necessary to add antipsychotic. Patient was hesitant to be on 2 medications but agreed it might be necessary. She very much does not want to stay on the unit however, agreed that she needs further treatment to make sure she is able to become and remain stable and thus said she was willing to the unit longer and signed a CV (later in the afternoon she signed a 3 day notice which she told automotive service writer was the plan beforehand; she agrees she may need to retract this as well but prefers to have it in place) 11/17 doing better and overall organized in speech and behavior; still with thought blocking and AH however patient only wants to be on lithium for now and does not want any other medication management even if AH remains. Patient said she will continue taking medication when she leaves Patient has a 3 day notice in due on Saturday. She agrees to remain for longer if needed but is hoping to leave soon. Patient does need to get lithium levels drawn on Saturday Plan: 3 day Q 15 minute checks Continue lithium ER 900 mg; will make at bedtime to help asleep Change to Valium 5 mg b.i.d. p.r.n. Change to Seroquel 50mg p.r.n.; patient does not want scheduled Discontinue Trilepta; patient does not want Tapered off Ativan Patient has refused lab work, EKG Will seek collateral Patient educated on: diagnosis, medication risk/benefits and therapeutic aisha khanna Informed Consent: understands Reason for continued inpatient stay Substantial Risk for: rapid decompensation Time Spent With Patient Time: Total time managing care of this patient today ____ minutes.
[2023-11-18 20:15] VITALS: BP 108/58; PULSE 77; RESP 16; TEMP 36.9; O2SAT 99
[2023-11-18] MEDS: Lithium Carbonate ER 450 MG TABLET.ER 900 MG PO (20:18)
[2023-11-18] MEDS: diphenhydrAMINE HCL 25 MG CAPSULE 50 MG PO (20:18)
[2023-11-18] MEDS: QUEtiapine Fumarate 50 MG TABLET PO (21:20)
[2023-11-18] MEDS: traZODone HCL 50 MG TABLET PO (22:14)
[2023-11-19 08:33] VITALS: BP 101/57; PULSE 73; RESP 17; TEMP 36.4; O2SAT 98
--- NOTE | 2023-11-19 09:53 | HO.PSYCHPN ---
Subjective Subjective Date of Service: 11/19/23 Reason For Visit: Haley Interim History: met with patient; discussed with team pt reports feeling better; still has AH that is distracting and problematic and saying not good' things (and pt remains internally preoccupied with some thought blocking), however she is AH is less frequent and is anxious about starting another medication. REviewd med regimen; seroquel helps with anxiety but does not effect AH. Pt is hoping that Knowles will continue to be beneficial and that she won't need another medication. Pt agrees that if AH remain at this level it will be challenging for her to stay stable. She agrees to retract 3 day and stay another day, to get level and assess medication needs. Mental Status Exam Mental Status Exam Narrative: Pt is alert and oriented to self; behavior is overall more organized; she is cooperative and though can still be guarded; patient is not in distress; dressed in casual attire with hair neatly pulled back, adequate hygiene; mood is described as good...better and affect congruent, still constricted but less so and more naturally expressive; eye contact adequate; Speech is spontaneous, with normal rate volume and prosody; still intermittent thought blocking; no psychomotor agitation; thought process goal directed and linear and logical; Thought content is on dealing with symptoms, discharge, treatment; denied SI/HI. AH intermittently present and bothersome. Patients insight and judgment impaired but much improved and adequate Diagnostics Vital Signs (24Hr): Vital Signs - 24 hr 11/18/23 20:15 11/19/23 08:33 Temperature 98.5 F 97.5 F Pulse Rate 77 73 Respiratory Rate 16 17 Blood Pressure 108/58 L 101/57 L Pulse Oximetry 99 98 Oxygen Delivery Method Room Air Room Air BMI result Body Mass Index 22.4 Labs 11/20/23 08:23 Medications Medications Current Medications Acetaminophen (Acetaminophen 325 Mg Tablet) 650 mg PO Q6H PRN PRN Reason: Headache/Pain Mild Scale (1-3) Al Hydroxide/Mg Hydroxide (Magnesium Hydrox/Alum Hydrox 30 Ml Oral.Susp) 30 ml PO Q6H PRN PRN Reason: Heartburn/Nausea Diazepam (Diazepam 5 Mg Tablet) 5 mg PO BID PRN PRN Reason: anxiety/agitation Last Admin: 11/18/23 19:14 Dose: 5 mg Diphenhydramine HCl (Diphenhydramine Hcl 25 Mg Capsule) 50 mg PO BEDTIME PRN PRN Reason: insomnia Last Admin: 11/18/23 20:18 Dose: 50 mg Hydroxyzine HCl (Hydroxyzine Hcl 25 Mg Tablet) 25 mg PO Q6H PRN PRN Reason: Anxiety [place] Carbonate ([place] Carbonate Er 450 Mg Tablet.Er) 900 mg PO BEDTIME RORY Last Admin: 11/18/23 20:18 Dose: 900 mg Magnesium Hydroxide (Milk Of Magnesia 30 Ml Oral.Susp) 30 ml PO DAILY PRN PRN Reason: Constipation Nicotine (Nicotine 21 Mg Patch.Td24) 21 mg TRANSDERMA DAILY PRN PRN Reason: smoking cessation Nicotine Polacrilex (Nicotine Polacrilex 2 Mg Gum) 4 mg BUCCAL Q2H PRN PRN Reason: Nicotine Cravings Olanzapine (Olanzapine 5 Mg Tablet) 5 mg PO TID PRN PRN Reason: agitation Quetiapine Fumarate (Quetiapine Fumarate 50 Mg Tablet) 50 mg PO TID PRN PRN Reason: anxiety Last Admin: 11/18/23 21:20 Dose: 50 mg Trazodone HCl (Trazodone Hcl 50 Mg Tablet) 50 mg PO BEDTIME MRX1 PRN PRN Reason: Insomnia Last Admin: 11/18/23 22:14 Dose: 50 mg Allergies Allergies Allergy/AdvReac Type Severity Reaction Status Date / Time bupropion [From WELLBUTRIN] AdvReac Severe SI, Verified 11/12/23 19:18 urinary incontinence, severe agitation Assessment & Plan Assessment & Plan (1) Bipolar disorder with psychotic features: Status: Acute Code(s): F31.9 - Bipolar disorder, unspecified Plan Patient is a 38-year-old female with history of bipolar disorder, recently discharged from a few weeks ago for manic episode, who presents with disorganized behavior, racing thoughts, responding to having decompensated about 1 week ago in the face of stopping medication. Patient disorganized and unable to engage in admission discussion. Initially patient just stood shaking her head no but would not speak to senior copywriter; refused medications. Later patient standing, looking around her room or out the window and both talking and responding to . Patient said can we talk later and interview temporarily suspended; senior copywriter came back later and patient again standing against the wall, looking around confused; would not answer questions and only said something about Jar[place] and then would not talk. Construction Equipment Mechanic Helper again offered medication, including lithium reminding her that she felt much better the last time she was here and took lithium. Construction Equipment Mechanic Helper explained that it would be ordered and it was her choice to take it or not. Patient did not respond. She has refused labs, EKG. Patient denied SI/HI to ED staff. Formulation/clinical reasoning: Patient has history of bipolar disorder. Patient is currently unable to engage in admission interview as she is psychotic, significantly internally preoccupied, self dialogue in responding to AH, possibly VH. Patient has some catatonic features and mutism seems to come and go. Construction Equipment Mechanic Helper ordered Ativan 1 mg t.i.d. to see if can alleviate some of these symptoms;discussed case with previous attending who said patient did improve on lithium so will continue now. Patient refuses to sign involuntarily; patient is currently manic/psychotic on unable to care for herself in the community and requires inpatient admission. Hospital Course: 11/14 Patient has started taking some medications last night, took half her dose of prescribed lithium. Talked more; still somewhat disorganized in speech/behavior but now with more lucid moments; still w/ thought blocking; with tears, says i'm stuck... suddenly stops talking and walks away. Later mother present who tries to encourage pt to stay on unit longer. Pt refuses to sign in; considers taking full [place] dose but wants seroquel, trileptal lowered. Won't discuss meds further 11/15 doing a little better but still disorganized in both speech and behavior; remains with some AH and still feels confused. Some insight but limited. She will continue with lithium at current dose however wants Seroquel to made p.r.n. discontinue Trileptal -senior copywriter would like to add Vraylar to help both with mood stabilization, depression at ; patient remains very ambivalent 11/16 Patient doing a little better today. Still has auditory hallucinations which she reports more manageable but still say deprecating things. Patient said her plan to stay stable is to pray and eat a good diet. On further discussion patient agreed that medications are probably necessary to remain stable. Patient was glad to be done with scheduled Seroquel and Trileptal. Construction Equipment Mechanic Helper said it is possible lithium could be effective as monotherapy but because patient continues to have auditory hallucinations, it might be necessary to add antipsychotic. Patient was hesitant to be on 2 medications but agreed it might be necessary. She very much does not want to stay on the unit however, agreed that she needs further treatment to make sure she is able to become and remain stable and thus said she was willing to the unit longer and signed a CV (later in the afternoon she signed a 3 day notice which she told senior copywriter was the plan beforehand; she agrees she may need to retract this as well but prefers to have it in place) 11/17 doing better and overall organized in speech and behavior; still with thought blocking and AH however patient only wants to be on lithium for now and does not want any other medication management even if AH remains. Patient said she will continue taking medication when she leaves Patient has a 3 day notice in due on Saturday. She agrees to remain for longer if needed but is hoping to leave soon. Patient does need to get lithium levels drawn on Saturday 11/18 pt reports feeling better; still has AH that is distracting and problematic (and pt remains internally preoccupied with some thought blocking), however she is AH is less frequent and is anxious about starting another medication. REviewd med regimen; seroquel helps with anxiety but does not effect AH. Pt is hoping that [place] will continue to be beneficial and that she won't need another medication. Pt agrees that if AH remain at this level it will be challenging for her to stay stable. She agrees to retract 3 day and stay another day, to get level and assess medication needs. She also agrees with family meeting with her mother to make sure dispo is stable. Meeting being set up Plan: CV Q 15 minute checks Continue lithium ER 900 mg; will make at bedtime to help asleep Change to Valium 5 mg b.i.d. p.r.n. Change to Seroquel 50mg p.r.n.; patient does not want scheduled Discontinue Trilepta; patient does not want Tapered off Ativan Patient has refused lab work, EKG Will seek collateral Patient educated on: diagnosis, medication risk/benefits and therapeutic strategies Informed Consent: understands Reason for continued inpatient stay Substantial Risk for: stable for discharge and rapid decompensation Time Spent With Patient Time: Total time managing care of this patient today ____ minutes.
[2023-11-19] MEDS: QUEtiapine Fumarate 50 MG TABLET PO (12:52)
[2023-11-19 20:25] VITALS: BP 112/62; PULSE 86; RESP 18; TEMP 36.8; O2SAT 99
[2023-11-19] MEDS: diphenhydrAMINE HCL 25 MG CAPSULE 50 MG PO (20:31)
[2023-11-19] MEDS: Lithium Carbonate ER 450 MG TABLET.ER 900 MG PO (20:31)
[2023-11-19] MEDS: traZODone HCL 50 MG TABLET PO (20:31)
[2023-11-19] MEDS: diazePAM 5 MG TABLET PO (21:34)
[2023-11-19] MEDS: hydrOXYzine HCL 25 MG TABLET PO (22:38)
[2023-11-20 08:00] VITALS: BP 105/62; PULSE 84; RESP 18; TEMP 36.4; O2SAT 100
[2023-11-20 08:58] LABS: Lithium 1.04 mmol/L (0.60-1.20)
[2023-11-20 09:14] LABS: Anion Gap 9 (12-20); Blood Urea Nitrogen 10 mg/dL (9-16); Calcium 9.2 mg/dL (8.4-10.2); Carbon Dioxide 29 mmol/L (22-29); Chloride 110 mmol/L (96-108); Creatinine Clr Calc Pharmacy 90.9; Estimated Glomerular Filt Rate > 60; Glucose Random 95 mg/dL (60-115); Potassium 4.5 mmol/L (3.3-5.1); Sodium 143 mmol/L (135-145)
[2023-11-20 09:30] LABS: TSH reflex Free T4 2.74 uIU/mL (0.32-4.0)
--- NOTE | 2023-11-20 11:03 | P.PNPSI_ITS ---
Subjective Subjective Date of Service: 11/20/23 Reason For Visit: Haley Interim History: Met with patient; discussed with team; met with patient's parents Patient remains doing better though still with AH. Clarified diagnosis and need for medication and the possibility that AH will remain without antipsychotic. Patient understood but wanted to remain on just lithium for now, worried about additional medications. Parents agree with plan and seem to understand patient's illness and need for medication. Mental Status Exam Mental Status Exam Narrative: Pt is alert and oriented to self; behavior is overall more organized; she is cooperative and though can still be guarded; patient is not in distress; dressed in casual attire with hair neatly pulled back, adequate hygiene; mood is described as good...better and affect congruent, still constricted but less so and more naturally expressive; eye contact adequate; Speech is spontaneous, with normal rate volume and prosody; still intermittent thought blocking; no psychomotor agitation; thought process goal directed and linear and logical; Thought content is on dealing with symptoms, discharge, treatment; denied SI/HI. AH intermittently present and bothersome. Patients insight and judgment impaired but much improved and adequate Diagnostics Vital Signs (24Hr): Vital Signs - 24 hr 11/19/23 20:25 11/20/23 08:00 Temperature 98.2 F 97.6 F Pulse Rate 86 84 Respiratory Rate 18 18 Blood Pressure 112/62 105/62 Pulse Oximetry 99 100 Oxygen Delivery Method Room Air Room Air BMI result Body Mass Index 22.4 Labs 11/20/23 08:23 Labs: Laboratory Results - last 48 hr 11/20/23 08:23 Sodium 143 Potassium 4.5 Chloride 110 H Carbon Dioxide 29 Anion Gap 9 L BUN 10 Creatinine 0.67 Estim Creat Clear Calc 90.9 Estimated GFR > 60 Random Glucose 95 Calcium 9.2 TSH 2.74 [place] 1.04 Medications Medications Current Medications Acetaminophen (Acetaminophen 325 Mg Tablet) 650 mg PO Q6H PRN PRN Reason: Headache/Pain Mild Scale (1-3) Al Hydroxide/Mg Hydroxide (Magnesium Hydrox/Alum Hydrox 30 Ml Oral.Susp) 30 ml PO Q6H PRN PRN Reason: Heartburn/Nausea Diazepam (Diazepam 5 Mg Tablet) 5 mg PO BID PRN PRN Reason: anxiety/agitation Last Admin: 11/19/23 21:34 Dose: 5 mg Diphenhydramine HCl (Diphenhydramine Hcl 25 Mg Capsule) 50 mg PO BEDTIME PRN PRN Reason: insomnia Last Admin: 11/19/23 20:31 Dose: 50 mg Hydroxyzine HCl (Hydroxyzine Hcl 25 Mg Tablet) 25 mg PO Q6H PRN PRN Reason: Anxiety Last Admin: 11/19/23 22:38 Dose: 25 mg [place] Carbonate ([place] Carbonate Er 450 Mg Tablet.Er) 900 mg PO BEDTIME RORY Last Admin: 11/19/23 20:31 Dose: 900 mg Magnesium Hydroxide (Milk Of Magnesia 30 Ml Oral.Susp) 30 ml PO DAILY PRN PRN Reason: Constipation Nicotine (Nicotine 21 Mg Patch.Td24) 21 mg TRANSDERMA DAILY PRN PRN Reason: smoking cessation Nicotine Polacrilex (Nicotine Polacrilex 2 Mg Gum) 4 mg BUCCAL Q2H PRN PRN Reason: Nicotine Cravings Olanzapine (Olanzapine 5 Mg Tablet) 5 mg PO TID PRN PRN Reason: agitation Quetiapine Fumarate (Quetiapine Fumarate 50 Mg Tablet) 50 mg PO TID PRN PRN Reason: anxiety Last Admin: 11/19/23 12:52 Dose: 50 mg Trazodone HCl (Trazodone Hcl 50 Mg Tablet) 50 mg PO BEDTIME MRX1 PRN PRN Reason: Insomnia Last Admin: 11/19/23 20:31 Dose: 50 mg Allergies Allergies Allergy/AdvReac Type Severity Reaction Status Date / Time bupropion [From WELLBUTRIN] AdvReac Severe SI, Verified 11/12/23 19:18 urinary incontinence, severe agitation Assessment & Plan Assessment & Plan (1) Bipolar disorder with psychotic features: Status: Acute Code(s): F31.9 - Bipolar disorder, unspecified Plan Patient is a 38-year-old female with history of bipolar disorder, recently discharged from a few weeks ago for manic episode, who presents with disorganized behavior, racing thoughts, responding to AH having decompensated about 1 week ago in the face of stopping medication. Patient disorganized and unable to engage in admission discussion. Initially patient just stood shaking her head no but would not speak to card writer hand; refused medications. Later patient standing, looking around her room or out the window and both talking and responding to AH. Patient said can we talk later and interview temporarily suspended; card writer hand came back later and patient again standing against the wall, looking around confused; would not answer questions and only said something about Jar[place] and then would not talk. Blower Mechanic again offered medication, including lithium reminding her that she felt much better the last time she was here and took lithium. Blower Mechanic explained that it would be ordered and it was her choice to take it or not. Patient did not respond. She has refused labs, EKG. Patient denied SI/HI to ED staff. Formulation/clinical reasoning: Patient has history of bipolar disorder. Patient is currently unable to engage in admission interview as she is psychotic, significantly internally preoccupied, self dialogue in responding to AH, possibly VH. Patient has some catatonic features and mutism seems to come and go. Blower Mechanic ordered Ativan 1 mg t.i.d. to see if can alleviate some of these symptoms;discussed case with previous attending who said patient did improve on lithium so will continue now. Patient refuses to sign involuntarily; patient is currently manic/psychotic on unable to care for herself in the community and requires inpatient admission. Hospital Course: 11/14 Patient has started taking some medications last night, took half her dose of prescribed lithium. Talked more; still somewhat disorganized in speech/behavior but now with more lucid moments; still w/ thought blocking; with tears, says i'm stuck... suddenly stops talking and walks away. Later mother present who tries to encourage pt to stay on unit longer. Pt refuses to sign in; considers taking full [place] dose but wants seroquel, trileptal lowered. Won't discuss meds further 11/15 doing a little better but still disorganized in both speech and behavior; remains with some AH and still feels confused. Some insight but limited. She will continue with lithium at current dose however wants Seroquel to made p.r.n. discontinue Trileptal -card writer hand would like to add Vraylar to help both with mood stabilization, depression at ; patient remains very ambivalent 11/16 Patient doing a little better today. Still has auditory hallucinations which she reports more manageable but still say deprecating things. Patient said her plan to stay stable is to pray and eat a good diet. On further discussion patient agreed that medications are probably necessary to remain stable. Patient was glad to be done with scheduled Seroquel and Trileptal. Blower Mechanic said it is possible lithium could be effective as monotherapy but because patient continues to have auditory hallucinations, it might be necessary to add antipsychotic. Patient was hesitant to be on 2 medications but agreed it might be necessary. She very much does not want to stay on the unit however, agreed that she needs further treatment to make sure she is able to become and remain stable and thus said she was willing to the unit longer and signed a CV (later in the afternoon she signed a 3 day notice which she told card writer hand was the plan beforehand; she agrees she may need to retract this as well but prefers to have it in place) 11/17 doing better and overall organized in speech and behavior; still with thought blocking and AH however patient only wants to be on lithium for now and does not want any other medication management even if AH remains. Patient said she will continue taking medication when she leaves Patient has a 3 day notice in due on Saturday. She agrees to remain for longer if needed but is hoping to leave soon. Patient does need to get lithium levels drawn on Saturday 11/18 pt reports feeling better; still has AH that is distracting and problematic (and pt remains internally preoccupied with some thought blocking), however she is AH is less frequent and is anxious about starting another medication. REviewd med regimen; seroquel helps with anxiety but does not effect AH. Pt is hoping that [place] will continue to be beneficial and that she won't need another medication. Pt agrees that if AH remain at this level it will be challenging for her to stay stable. She agrees to retract 3 day and stay another day, to get level and assess medication needs. She also agrees with family meeting with her mother to make sure dispo is stable. Meeting being set up 11/19 Patient remains doing better though still with AH. Clarified diagnosis and need for medication and the possibility that AH will remain without antipsychotic. Patient understood but wanted to remain on just lithium for now, worried about additional medications. Parents agree with plan and seem to understand patient's illness and need for medication. -[place] level WNL Plan: CV Q 15 minute checks Continue lithium ER 900 mg; will make at bedtime to help asleep Change to Valium 5 mg b.i.d. p.r.n. Change to Seroquel 50mg p.r.n.; patient does not want scheduled Discontinue Trilepta; patient does not want Tapered off Ativan Patient has refused lab work, EKG Will seek collateral Patient educated on: diagnosis, medication risk/benefits and therapeutic strategies Informed Consent: understands Reason for continued inpatient stay Substantial Risk for: stable for discharge Time Spent With Patient Time: Total time managing care of this patient today ____ minutes.
[2023-11-20] MEDS: diazePAM 5 MG TABLET PO (17:41)
--- NOTE | 2023-11-20 18:10 | PM.PSYDC ---
DS: Providers Provider Date of Service: 11/21/23 Date of admission: 11/13/23 14:54 Date of discharge: 11/21/23 Primary care physician: Chandler Viera DO, MD Attending physician on admission: Dallin Gipson Attending physician on discharge: Dallin Gipson DS: Diagnosis Discharge Diagnosis (1) Bipolar disorder with psychotic features: Status: Acute DS: Medications Discharge Medications Home Medications: Previous Rx's ?Medication ?Instructions ?Recorded oxcarbazepine 150 mg tablet 150 mg PO TID #90 tabs 10/10/23 diphenhydramine HCl 25 mg capsule 50 mg (2 x 25 mg) PO BEDTIME PRN 10/22/23 (Banophen) insomnia 30 days #60 caps lithium carbonate 450 mg 450 mg PO BID 30 days #60 tabs 10/22/23 tablet,extended release diazepam 5 mg tablet 5 mg PO BID PRN anxiety 30 days 11/20/23 #30 tabs lithium carbonate 450 mg 900 mg (2 x 450 mg) PO BEDTIME 30 11/20/23 tablet,extended release days #60 tabs quetiapine 50 mg tablet 50 mg PO TID PRN anxiety 30 days 11/20/23 #60 tabs trazodone 50 mg tablet 50 mg PO BEDTIME PRN Insomnia 30 11/20/23 days #30 tabs Mental Status Exam Mental Status Exam Narrative: Pt is alert and oriented to self; behavior is overall more organized; she is cooperative and though can still be guarded; patient is not in distress; dressed in casual attire with hair neatly pulled back, adequate hygiene; mood is described as good...better and affect congruent, still constricted but less so and more naturally expressive; eye contact adequate; Speech is spontaneous, with normal rate volume and prosody; still intermittent thought blocking; no psychomotor agitation; thought process goal directed and linear and logical; Thought content is on dealing with symptoms, discharge, treatment; denied SI/HI. AH intermittently present and bothersome. Patients insight and judgment impaired but much improved and adequate Data Data Completed and Pending Completed studies during hospitalization [Text1]: 11/20/23 08:23 Sodium 143 Potassium 4.5 Chloride 110 H Carbon Dioxide 29 Anion Gap 9 L BUN 10 Creatinine 0.67 Estim Creat Clear Calc 90.9 Estimated GFR > 60 Random Glucose 95 Calcium 9.2 TSH 2.74 [place] 1.04 DS: Summary Hospital Course Hospital Course: Patient is a 38-year-old female with history of bipolar disorder, recently discharged from a few weeks ago for manic episode, who presents with disorganized behavior, racing thoughts, responding to AH having decompensated about 1 week ago in the face of stopping medication. Patient disorganized and unable to engage in admission discussion. Initially patient just stood shaking her head no but would not speak to signwriter; refused medications. Later patient standing, looking around her room or out the window and both talking and responding to AH. Patient said can we talk later and interview temporarily suspended; signwriter came back later and patient again standing against the wall, looking around confused; would not answer questions and only said something about [place] and then would not talk. Compotype Operator again offered medication, including lithium reminding her that she felt much better the last time she was here and took lithium. Compotype Operator explained that it would be ordered and it was her choice to take it or not. Patient did not respond. She has refused labs, EKG. Patient denied SI/HI to ED staff. Formulation/clinical reasoning: Patient has history of bipolar disorder. Patient is currently unable to engage in admission interview as she is psychotic, significantly internally preoccupied, self dialogue in responding to AH, possibly VH. Patient has some catatonic features and mutism seems to come and go. Compotype Operator ordered Ativan 1 mg t.i.d. to see if can alleviate some of these symptoms;discussed case with previous attending who said patient did improve on lithium so will continue now. Patient refuses to sign involuntarily; patient is currently manic/psychotic on unable to care for herself in the community and requires inpatient admission. Hospital Course: Admission, patient was disorganized speech and behavior, frequently mute with intense thought blocking. [place], Seroquel and Trileptal were continued from last admission. Patient initially refused medication but did take Ativan which was prescribed for catatonic like symptoms. Following day patient did start taking some of her lithium which helped her talk more, with some lucid moments; however continued to have significant thought blocking and remained internally preoccupied with AH and during meeting, would look around the room and respond out loud to unseen person in the room. Pt said with tears, says i'm stuck... Patient continued to take lithium and but still only at a partial dose. She started doing a little better and though though still disorganized was more able to have an appropriate conversation Patient remained with significant AH, thought blocking was internally preoccupied. Despite continued significant symptoms patient wanted discharge; her mother however came to visit and encouraged patient's stay on the unit longer to which she agreed but still refused to sign a CV. She said going forward she would take full lithium dose but did not want to take Seroquel or Trileptal, asking them to be lowered. Patient to anxious to have much of a further conversation regarding medication management. As patient started taking full dose of lithium, she started to progress. And though still with residual disorganized speech and behavior, significant AH and sometimes feeling confused, she was overall more able to participate appropriately treatment. At patient's request Seroquel and Trileptal were discontinued with Seroquel left as a p.r.n.. Patient continued to improve. Mood was better, anxiety less. She reported that AH was less but that it was still very bothersome and voices continued to say insulting upsetting things. Compotype Operator discussed the possibility that she may need an additional medication to lithium for the lithium seem to stop tim and improve mood, AH remained. Compotype Operator discussed the possibility of an antipsychotic, such as Vraylar however patient was very anxious about the idea and wanted to remain on lithium alone. Patient's insight had improved and she implied she needed medication but had some ambivalence and insight still limited. Patient said her plan to stay stable is to pray and eat a good diet. On further discussion patient agreed that medications are probably necessary to remain stable. Patient was glad to be done with scheduled Seroquel and Trileptal. As AH remained, Compotype Operator again explained it is possible that lithium could be effective as monotherapy but because patient continues to have auditory hallucinations, it might be necessary to add antipsychotic. Patient did not want to do this and asked for discharge; signwriter however explained that patient was not yet stable enough to return home and would very likely end up back in the hospital soon; also lithium and not yet reached steady state and labs, lithium level were still needed. Patient agreed that this was overall better for her and signed a CV. Patient continued to improve and became overall in organized speech and behavior; she was still with some thought blocking and AH however she remained adamant that she only wanted to be on 1 medication, lithium and that she would try to tolerate auditory hallucinations. She understood that if she changed her mind there was further medication available that could help subdue AH, which she said she would work out with her outpatient providers (team tried repeatedly to get a hold of her outpatient prescriber but was unable to). Patient's insight improved and she agreed that she needed medications remained stable and said she will continue taking lithium on discharge. Patient has a 3 day notice in due on Saturday, though she agreed to stay longer if team felt it was necessary. By the end of admission patient was much improved and reported good mood. She still reported considerable AH that she found distracting and problematic (and remained internally preoccupied with some thought blocking), however she AH is less frequent and she wants to see if over subsequent weeks it will continue to diminish. Was future oriented, feeling safe and ready to discharge home with her parents. Patient's mother and father present for family meeting who both agree that patient was doing much better and appropriate to return home. During family meeting, signwriter and social work supervisor Clarified diagnosis and need for medication; again discussed the possibility that AH will remain without antipsychotic, all of whom understood. Her 3 day notice had come due. Patient was not in imminent risk for harm to self or others and request for discharge honored. Medications: lithium ER 900 mg Valium 5 mg b.i.d. p.r.n. Seroquel 50mg p.r.n. Time spent discussing smoking cessation with patient: 3 to 10 minutes Status at Discharge Functional status at discharge: independent ambulation Overall status at discharge: patient is progressing back to baseline Time Spent with Patient Time attestation: Total time managing care of this patient today _50___ minutes. Time spent: Greater than 30 minutes Specific discharge activities: Met with patient; discussed with team; family meeting; prescription; charting Discharge Plan Discharge Anticipated Discharge Date/Time: 11/21/23 11:30 Patient Disposition: Home, Self-Care Discharge Diagnosis: Schizoaffective disorder, bipolar type (provisional) Referrals: [facility] [Other] - 3-5 Days (They have walk-in same day intake for therapy and psychiatry. Walk-In Hours: M-F 10am - 12pm. Bring your discharge packet and let them know you have recently been inpatient, they give hospital discharges priority. ) [facility] ([facility]) [Other] - 3-5 Days (They have same day walk-in therapy and psychiatry appointments. ) [facility] ([facility]) [Other] - 3-5 Days (Walk-in same day intake for therapy and psychiatry. Walk-In Hours: M-F: 8am-8pm Sat: 9am-5pm) Chandler Viera DO, MD [Primary Care Provider] - 1 Week (Pt prefers to make own appointment when discharged) Discharge Medications: New lithium carbonate 450 mg Tablet Extended Release 900 mg PO BEDTIME 30 Days Qty: 60 1RF trazodone 50 mg Tablet 50 mg PO BEDTIME PRN (Reason: Insomnia) 30 Days Qty: 30 1RF Continued diphenhydramine HCl [Banophen] 25 mg Capsule 50 mg PO BEDTIME PRN (Reason: insomnia) 30 Days Qty: 60 1RF Changed diazepam 5 mg tablet 5 mg PO BID PRN (Reason: anxiety) 30 Days Qty: 30 0RF quetiapine 50 mg tablet 50 mg PO TID PRN (Reason: anxiety) 30 Days Qty: 60 1RF Discontinued oxcarbazepine 150 mg tablet 150 mg PO TID Qty: 90 0RF lithium carbonate 450 mg Tablet Extended Release 450 mg PO BID 30 Days Qty: 60 0RF Discharge Orders: Discharge Order (Routine); Ordered 11/21/23 Ordered By: Dallin Gipson Diet: Regular diet Activity on Discharge: As tolerated Stand Alone Forms: Patient Portal Discharge page, Community Support Print Language: Estonian Care Plan Goals: Maintain mood and safe behaviors Take medications as prescribed Continue to pursue sobriety Practice coping skills Continue with outpatient providers and reach out to them as needed Health Concerns: Mood stability and behaviors Plan of Treatment: Follow up with your PCP, psychiatric provider and other outpatient providers regarding above concerns Take medications as prescribed Assessment: Risk assessment at time of discharge:? Patient was interviewed prior to discharge and found to be fully oriented and without any SI or HI. Patient has improved insight and judgment and wants to continue treatment. Patient is not in imminent risk of harm to self or others and has a safety plan that includes presenting to the closest ER or calling 911 if feeling unsafe.? Patient has been observed closely by nursing and unit staff throughout admission; patient has not engaged in any behaviors that suggest dangerousness to self or others and has demonstrated appropriate behaviors and impulse control Discharge Date/Time: 11/21/23 11:15
[2023-11-20 20:00] VITALS: BP 140/65; PULSE 80; RESP 16; TEMP 36.7; O2SAT 98
[2023-11-20] MEDS: traZODone HCL 50 MG TABLET PO ×2 (20:09→23:04)
[2023-11-20] MEDS: diphenhydrAMINE HCL 25 MG CAPSULE 50 MG PO (20:09)
[2023-11-20] MEDS: Lithium Carbonate ER 450 MG TABLET.ER 900 MG PO (20:09)
[2023-11-20] MEDS: QUEtiapine Fumarate 50 MG TABLET PO (20:10)
[2023-11-20] MEDS: hydrOXYzine HCL 25 MG TABLET PO (20:10)
[2023-11-21] MEDS: OLANZapine 5 MG TABLET PO (01:33)
[2023-11-21 08:00] VITALS: BP 104/56; PULSE 78; RESP 18; TEMP 37.3; O2SAT 98
== END 2023-11-21 11:15 | disposition home or self-care (01) | DRG 761 ==
LOC: HO.ED 23:51 → HO.PM5 11-13 15:19
PROVIDERS: Admitting Provider Psychiatry & Neurology Psychiatry; Emergency Provider Internal Medicine; PCP Internal Medicine; Visit Provider Psychiatry & Neurology Psychiatry
DX: F25.0 Schizoaffective disorder, bipolar type (principal); Z91.128 Patient's intentional underdosing of medication regimen for other reason; Z87.891 Personal history of nicotine dependence; Z79.899 Other long term (current) drug therapy
CPT/HCPCS: 36415; 80048; 80178; 84443; 99285; S9485

== ENCOUNTER → 2023-11-13 14:54 | Outpatient (BNV) | payer OTHER, SELFPAY | PROVIDERS: Admitting Provider Psychiatry & Neurology Psychiatry; Emergency Provider Internal Medicine; PCP Internal Medicine; Visit Provider Psychiatry & Neurology Psychiatry | DX: F31.13 Bipolar disorder, current episode manic without psychotic features, severe (principal) | CPT/HCPCS: 99231; 99232; 99239 ==